=== PATIENT | male | born 1960 | race African-American/Black ===

== ENCOUNTER 2017-03-11 23:52 | Emergency (ER) | payer MEDICAID ==
[~2017-03-11] VITALS: Ht 175.3 cm; Wt 116.1 kg
[~2017-03-11 23:52] MED LIST: AMLO10TA57 PO; BICA50TA PO; CALC-587 PO; CLON0.1T97 PO; FURO40TA70 PO; HYDR-2164 PO; INSU100V8 SQ; LEUP45SY IM; OXYC40TA25 PO; POTA20TA69 PO; TRAM-261 PO; ZOLE4VIA IV; [UNRECOGNIZED DRUG - CODE] PO; [UNRECOGNIZED DRUG - CODE] PO
[2017-03-11 23:55] VITALS: TEMP 97.8; Ht 175.3 cm; Wt 116.1 kg
--- OUTSIDE RECORDS SUMMARY | 2017-03-11 23:56 | XMS REPORT ---
Author Author Dean Gannon Organization [employer] Address Unknown Phone Unavailable Care Team Providers Care Detective Sergeant Name Role Phone Dean Gannon CP Unavailable Allergies No Known Allergies Problems Problem Type Condition Code Onset Dates Condition Status Problem Degeneration of lumbar or lumbosacral intervertebral disc 722.52 Active Problem 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 Active Problem Other obesity E66.8 Active Problem Chronic pancreatitis 577.1 Active Problem Essential (primary) hypertension I10 Active Problem Giant cell arteritis 446.5 Active Problem Pain in right wrist M25.531 Active Problem Presbyopia H52.4 Active Problem Pain in left shoulder M25.512 Active Problem Chronic kidney disease, stage 1 N18.1 Active Problem 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 Problem Spasm of muscle 728.85 Active Problem Malignant neoplasm of prostate 185 Active Problem Essential hypertension, benign 401.1 Active Problem Localized osteoarthrosis not specified whether primary or secondary, lower leg 715.36 Active Problem Age-related nuclear cataract, bilateral H25.13 Active Problem Regular astigmatism, bilateral H52.223 Active Problem Pain in right knee M25.561 Active Problem Type 2 diabetes mellitus with hyperglycemia E11.65 Active Problem Lipoma of other skin and subcutaneous tissue 214.1 Active Problem Pain in joint, shoulder region 719.41 Active Problem Pain in soft tissues of limb 729.5 Active Problem Allergic rhinitis, cause unspecified 477.9 Active Problem Localized superficial swelling, mass, or lump 782.2 Active Problem 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
--- OUTSIDE RECORDS SUMMARY | 2017-03-11 23:56 | XMS REPORT ---
Author Author Katrin Olvera [employer] Address Unknown Phone Unavailable Care Team Providers Care Crane Hooker Name Role Phone Katrin Olvera Unavailable Allergies, Adverse Reactions, Alerts Substance Reaction Event Type Reglan Info Not Available Drug Allergy Prochlorperazine Info Not Available Drug Allergy Morphine Sulfate nausea Drug Allergy Inapsine Info Not Available Drug Allergy seasonal Info Not Available Non Drug Allergy Problems Problem Type Condition ICD-9 Code Onset Dates Condition Status Assessment Lipoma of other skin and subcutaneous tissue 214.1 Active Assessment Lumbago 724.2 Active Assessment Obesity, unspecified 278.00 Active Assessment Malignant neoplasm of prostate 185 Active Assessment Essential hypertension, benign 401.1 Active Assessment Hypertrophy (benign) of prostate without urinary obstruction and other lower urinary tract symptoms [LUTS] 600.00 Active Assessment Chronic pancreatitis 577.1 Active Assessment Routine general medical examination at health care facility V70.0 Active Problem Obesity, unspecified 278.00 Active Problem Malignant neoplasm of prostate 185 Active Problem Degeneration of lumbar or lumbosacral intervertebral disc 722.52 Active Problem Encounter for removal of sutures V58.32 Active Problem Essential hypertension, benign 401.1 Active Problem Acute sinusitis, unspecified 461.9 Active Problem Acute bronchitis 466.0 Active Problem Spasm of muscle 728.85 Active Problem Lipoma of other skin and subcutaneous tissue 214.1 Active Problem Lumbago 724.2 Active Problem Hypertrophy (benign) of prostate without urinary obstruction and other lower urinary tract symptoms [LUTS] 600.00 Oct 13, 2010 Active Problem 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 Active Problem Routine general medical examination at health care facility V70.0 Active Problem Acute maxillary sinusitis 461.0 Active Problem Pain in joint, lower leg 719.46 Active Problem Pain in soft tissues of limb 729.5 Active Problem Allergic rhinitis, cause unspecified 477.9 Active Problem Swelling, mass, or lump in head and neck 784.2 Active Problem Chronic pancreatitis 577.1 Active Assessment Acute sinusitis, unspecified 461.9 Active Problem Sprain and strain of other specified sites of knee and leg 844.8 Active Problem Nonspecific abnormal electrocardiogram (ECG) (EKG) 794.31 Active Problem Unspecified pre-operative examination V72.84 Active Problem Acute frontal sinusitis 461.1 Active Problem Localized osteoarthrosis not specified whether primary or secondary, lower leg 715.36 Active Problem Headache 784.0 Active Problem Giant cell arteritis 446.5 Active Medications Medication Code System Code Instructions Start Date End Date Status Dosage ProAir HFA [facility] [address]-47 108 (90 Base) MCG/ACT Inhalation every 4 hrs PRN wheezing January 05, 2013 Active 2 puffs as needed Potassium Chloride [facility] [address]-39 20 MEQ Orally Three times a day Active 1 capsule Bactrim DS [facility] [address]-29 800-160 MG Orally Twice a day Sep 21, 2014 Oct 01, 2014 Active 1 tablet Mucinex [facility] [address]-43 600 MG Orally every 12 hrs, take with plenty of water January 29, 2014 Active 1 tablet as needed Flonase [facility] [address]-91 50 MCG/ACT Nasally bid Sep 07, 2014 Active 1 spray in each nostril Waucoma [facility] [address]-55 10-325 MG Orally every 6 hrs Active 1 tablet as needed Zometa [facility] [address]-46 4 MG/5ML Intravenous Active as directed Amlodipine Besylate [facility] [address]-04 10 MG Orally Once a day Active take one tablet by mouth daily Hydrochlorothiazide [facility] [address]-30 25 MG Orally Once a day January 05, 2013 Active 1 tablet Casodex [facility] [address]-18 50 MG Orally Once a day Active 1 tablet Lupron Depot [facility] [address]-16 45 MG Intramuscular Active as directed Soma [facility] [address]-82 350 MG Orally twice a day January 29, 2014 Dec 08, 2014 Active 1 tablet as needed Cetirizine HCl [facility] [address]-89 10 MG Orally qhs Sep 07, 2014 March 06, 2015 Active 1 tablet Calcium [facility] [address]-31 400-133.3 Orally Active 1 PO daily Procedures Procedure Coding System Code Date ASSAY OF LIPOPROTEIN CPT-4 03004 Sep 21, 2014 ASSAY, BLD/SERUM CHOLESTEROL CPT-4 07810 Sep 21, 2014 GLYCATED HEMOGLOBIN TEST CPT-4 79990 Sep 21, 2014 Office Visit, Est Pt., Level 5 CPT-4 60968 Sep 21, 2014 ASSAY OF TRIGLYCERIDES CPT-4 53604 Sep 21, 2014 Vital Signs Date/Time: Sep 21, 2014 BMI 36.53 Index Weight 254.6 lbs Height 70 in Blood Pressure Diastolic 74 mm Hg Blood Pressure Systolic 115 mm Hg Temperature 97.6 F Cardiac Monitoring Heart Rate 72 /min Results No Known Results Summary Purpose eClinicalWorks Submission
--- OUTSIDE RECORDS SUMMARY | 2017-03-11 23:56 | XMS REPORT | Continuity of Care Document ---
Author Author [facility] Organization [facility] Address Unknown Phone Unavailable Care Team Providers Care Negative Notcher Name Role Phone Zaki Bojorquez Primary Care Physician [phone] Source Comments Some departments are not documenting in the electronic medical record. If you do not see the information that you expected, contact Release of Information in the Health Information Management department at [phone] for further assistance in locating additional records.[facility] Active Allergies and Adverse Reactions Allergen Noted Date Severity Reactions Comments Compazine 05/26/2011 UNKNOWN Morphine 05/26/2011 UNKNOWN Reglan 05/26/2011 UNKNOWN Current Medications Prescription Sig. Disp. Refills Start End Date Status Date AMLODIPINE BESYLATE Take by mouth. Active (NORVASC PO) bicalutamide (CASODEX) 50 Take 1 Tab by mouth 30 Tab 0 06/04/20 Active mg PO Tab daily. 11 oxyCODONE SR (OXYCONTIN) Take 1 Tab by mouth every 9 Tab 0 06/05/20 Active 40 mg PO tablet 8 hours. 11 ALPRAZolam (XANAX) 0.25 Take 1 Tab by mouth three 30 Tab 0 20 Active mg PO tablet times daily as needed for 11 Anxiety. bicalutamide (CASODEX) 50 Take 1 Tab by mouth 30 Tab 0 20 Active mg PO Tab daily. 11 gabapentin (NEURONTIN) Take 2 Caps by mouth 200 Cap 0 06/05/20 Active 100 mg PO capsule twice daily. 11 levETIRAcetam (KEPPRA) Take 1 Tab by mouth twice 12 Tab 0 06/05/20 Active 500 mg PO tablet daily. 11 lisinopril (PRINIVIL; Take 1 Tab by mouth 30 Tab 0 08/19/20 Active ZESTRIL) 20 mg PO tablet daily. 11 senna/docusate Take 1 Tab by mouth twice 06/05/20 Active (SENOKOT-S) 8.6/50 mg PO daily. Take while taking 11 tablet pain medication hydrochlorothiazide Take 1 Tab by mouth 30 Tab 0 06/05/20 Active (HYDRODIURIL) 25 mg PO daily. 11 tablet HYDROmorphone (DILAUDID) Take 2 Tabs by mouth 24 Tab 0 06/05/20 Active 8 mg PO tablet every 6 hours as needed. 11 Active Problems Problem Noted Date Headache behind the eyes 06/02/2011 Brain mass 06/02/2011 S/P craniotomy 06/02/2011 HTN (hypertension) 06/02/2011 Unintentional weight loss 06/02/2011 Chronic back pain 06/02/2011 Family history of cancer 06/02/2011 Resolved Problems Problem Noted Date Resolved Date Prostate cancer (HCC) 06/02/2011 06/02/2011 Social History Tobacco Use Types Packs/Day Years Used Date Never Smoker Alcohol Use Drinks/Week oz/Week Comments No Last Filed Vital Signs Vital Sign Reading Time Taken Blood Pressure 148/86 06/05/2011 11:00 AM CDT Pulse 78 06/05/2011 11:00 AM CDT Temperature 36.4 C (97.6 F) 06/05/2011 11:00 AM CDT Respiratory Rate - - Height - - Weight 104.1 kg (229 lb 8 oz) 06/01/2011 9:45 PM CDT Body Mass Index - - Oxygen Saturation 98% 06/05/2011 11:00 AM CDT Plan of Care Health Maintenance Due Date Last Done Comments Hepatitis C Screening 1959 Physical (Comprehensive) 1966 Exam Pertussis Vaccine 1970 Tetanus Vaccine 1976 Colorectal Cancer 2009 Screening Influenza Vaccine 06/18/2017 Results from Last 3 Months Not on file
--- OUTSIDE RECORDS SUMMARY | 2017-03-11 23:56 | XMS REPORT ---
Author Author Dean Gannon Organization [employer] Address Unknown Phone Unavailable Care Team Providers Care Canceling Machine Operator Name Role Phone Dean Gannon CP Unavailable [...] of other specified sites 176.8 Active Medications Medication Code System Code Instructions Start Date End Date Status Dosage Levemir FlexTouch [facility] [address]-20 100 UNIT/ML Subcutaneous QHS March 02, 2016 20 units Results No Known Results Summary Purpose eClinicalWorks Submission
--- OUTSIDE RECORDS SUMMARY | 2017-03-11 23:56 | XMS REPORT | Referral Summary ---
Author Organization Unknown Address Unknown Phone Unavailable Care Team Providers Care Parking Lot Laborer Name Role Phone [facility] Primary Care Physician Unavailable Encounter [facility] [id number] Date(s): 01/29/15 - 01/29/15 [facility] [address] [place] [address] Discharge Diagnosis: Pain, dental Discharge Diagnosis: Fractured tooth Discharge Diagnosis: Acute sinusitis Discharge Disposition: Left Against Medical Advice Attending Physician: Segundo Villalobos MD Admitting Physician: Segundo Villalobos MD Vital Signs Most recent to 1 oldest [Reference Range]: Temperature Oral 36.6 degC [35.8-37.3 degC] (01/29/15 5:53 PM) Peripheral Pulse 89 bpm Rate [60-100 bpm] (01/29/15 5:53 PM) Respiratory Rate 16 br/min [14-20 br/min] (01/29/15 5:53 PM) Blood Pressure 167/95 mmHg [90-140/60-90 mmHg] *HI* (01/29/15 5:53 PM) Most recent to 1 oldest [Reference Range]: SpO2 97 % (01/29/15 5:53 PM) Problem List Condition Effective Dates Status Health Status Informant Cancer(Confirmed) Active patient Hypertension(Confirm Active patient ed) Fibrosarcoma(Confirm Active patient ed) Prostate Active patient cancer(Confirmed) Allergies, Adverse Reactions, Alerts Substance Reaction Severity Status Compazine Jittery Mild Active Flexeril Hives Active Inapsine Jittery Mild Active naproxen Adverse Reaction Active Reglan Jittery Mild Active Medications calcium-magnesium 119 mg-71.5 mg oral delayed release tablet tabs, Oral, Daily, 0 Refill(s) Start Date: 05/16/14 Status: Ordered captopril-hydrochlorothiazide 25 mg-15 mg oral tablet tabs, Oral, Daily, 0 Refill(s) Start Date: 05/16/14 Status: Ordered Lasix Daily, 0 Refill(s) Start Date: 09/06/14 Status: Ordered Lupron Depot-Ped 11.25 mg/3 months intramuscular kit IntraMuscular, q3mo, 0 Refill(s) Start Date: 05/16/14 Status: Ordered Norvasc Oral, Daily, 0 Refill(s) Start Date: 09/06/14 Status: Ordered oxyCODONE-acetaminophen 5 mg-325 mg oral tablet 1 tabs, Oral, q4hr, as needed for pain, # 20 tabs, 0 Refill(s) Start Date: 11/28/14 Status: Ordered potassium chloride 20 mEq oral tablet, extended release tabs, Oral, BID, 0 Refill(s) Start Date: 10/24/14 Status: Ordered Zometa mg, IV, 0 Refill(s) Start Date: 10/08/14 Status: Ordered Results No data available for this section Immunizations Vaccine Date Refusal Reason tetanus-diphth toxoids (Td) adult/adol 07/02/04 Procedures Procedure Date Related Diagnosis Body Site Craniotomy Insertion of Port-a-cath Shoulder repair Total knee replacement1 1right total knee replacement Social History Social History Type Response Smoking Status Never smoker Assessment and Plan No data available for this section
--- OUTSIDE RECORDS SUMMARY | 2017-03-11 23:56 | XMS REPORT | Referral Summary ---
Author Author [facility] Organization [facility] Address Unknown Phone Unavailable Care Team Providers Care Otolaryngology Physician Name Role Phone [facility] Primary Care Physician Unavailable Encounter [facility] [id number] Date(s): 12/16/15 - 12/16/15 [facility] [address] [place], [place] [address] Discharge Diagnosis: Mass of right wrist Discharge Disposition: 01-Home or Self Care Attending Physician: Inder Rivas MD Admitting Physician: Inder Rivas MD Referring Physician: [facility] Vital Signs No data available for this section Problem List Condition Effective Dates Status Health Status Informant Cancer(Confirmed) Active patient Hypertension(Confirm Active patient ed) Fibrosarcoma(Confirm Active patient ed) Prostate Active patient cancer(Confirmed) Mass of right Active wrist(Confirmed) Allergies, Adverse Reactions, Alerts Substance Reaction Severity Status Compazine Jittery Mild Active Flexeril Hives Active Inapsine Jittery Mild Active naproxen Adverse Reaction Active Reglan Jittery Mild Active Medications calcium carbonate 0 Refill(s) Start Date: 11/29/14 Status: Ordered calcium-magnesium 119 mg-71.5 mg oral delayed release tablet tabs, Oral, Daily, 0 Refill(s) Start Date: 05/16/14 Status: Ordered captopril-hydrochlorothiazide 25 mg-15 mg oral tablet tabs, Oral, Daily, 0 Refill(s) Start Date: 05/16/14 Status: Ordered Casodex mg, Oral, q24hr, 0 Refill(s) Start Date: 11/29/14 Status: Ordered Lasix Daily, 0 Refill(s) Start Date: 11/29/14 Status: Ordered Lasix Daily, 0 Refill(s) Start Date: 09/06/14 Status: Ordered Lupron Depot 30 mg/4 months intramuscular injection, extended release IntraMuscular, 0 Refill(s) Start Date: 11/29/14 Status: Ordered Lupron Depot-Ped 11.25 mg/3 months intramuscular kit IntraMuscular, q3mo, 0 Refill(s) Start Date: 05/16/14 Status: Ordered [place] 10 mg-325 mg oral tablet tabs, Oral, q6hr, 0 Refill(s) Start Date: 11/29/14 Status: Ordered Norvasc Oral, Daily, 0 Refill(s) Start Date: 09/06/14 Status: Ordered potassium bitartrate 0 Refill(s) Start Date: 11/29/14 Status: Ordered potassium chloride 20 mEq oral tablet, extended release tabs, Oral, BID, 0 Refill(s) Start Date: 10/24/14 Status: Ordered Zometa mg, IV, 0 Refill(s) Start Date: 10/08/14 Status: Ordered Zometa mg, IV, 0 Refill(s) Start Date: 11/29/14 Status: Ordered Results No data available for this section Immunizations Vaccine Date Refusal Reason tetanus-diphth toxoids (Td) adult/adol 07/02/04 Procedures Procedure Date Related Diagnosis Body Site Craniotomy Insertion of Port-a-cath Shoulder repair Total knee replacement1 1right total knee replacement Social History Social History Type Response Smoking Status Never smoker Assessment and Plan Extracted from: Title: Office Visit Note Author: Inder Rivas MD Date: 12/16/15 Assessment/Plan Patient has some fullness in thedorsum of the wrist over the second dorsal compartment. This may be synovitis. Also possible it simply dorsal ganglion cyst. However doesn't feel like a ganglion. 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 Will do this with contrast. I explained the patient that we' ll get this scheduled and have him return to see me afterwards.
--- OUTSIDE RECORDS SUMMARY | 2017-03-11 23:56 | XMS REPORT ---
Author Author Christi Fournier Organization [employer] Address Unknown Phone Unavailable Care Team Providers Care Boat Camp Operator Name Role Phone Christi Fournier CP Unavailable Allergies, Adverse Reactions, Alerts Substance Reaction Event Type Reglan Info Not Available Drug Allergy Prochlorperazine Info Not Available Drug Allergy Morphine Sulfate nausea Drug Allergy Inapsine Info Not Available Drug Allergy seasonal Info Not Available Non Drug Allergy Problems Problem Type Condition ICD-9 Code Onset Dates Condition Status Problem Giant cell arteritis 446.5 Active Problem Localized osteoarthrosis not specified whether primary or secondary, lower leg 715.36 Active Problem Acute frontal sinusitis 461.1 Active Problem Pain in soft tissues of limb 729.5 Active Problem Obesity, unspecified 278.00 Active Problem Acute bronchitis 466.0 Active Assessment Acute sinusitis, unspecified 461.9 Active Problem Pain in joint, lower leg 719.46 Active Problem Encounter for removal of sutures V58.32 Active Problem Malignant neoplasm of prostate 185 Active Problem Spasm of muscle 728.85 Active Problem Acute sinusitis, unspecified 461.9 Active Problem Acute maxillary sinusitis 461.0 Active Problem 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 Active Problem Degeneration of lumbar or lumbosacral intervertebral disc 722.52 Active Problem Essential hypertension, benign 401.1 Active Problem Unspecified pre-operative examination V72.84 Active Problem Chronic pancreatitis 577.1 Active Problem Hypertrophy (benign) of prostate without urinary obstruction and other lower urinary tract symptoms [LUTS] 600.00 Oct 13, 2010 Active Problem Sprain and strain of other specified sites of knee and leg 844.8 Active Problem Nonspecific abnormal electrocardiogram (ECG) (EKG) 794.31 Active Problem Headache 784.0 Active Medications Medication Code System Code Instructions Start Date End Date Status Dosage Amoxicillin [facility] [address]-00 500 MG Orally every 12 hrs Jul 09, 2014 Jul 19, 2014 Active 2 tablets ProAir HFA [facility] [address]-95 108 (90 Base) MCG/ACT Inhalation every 4 hrs PRN wheezing January 05, 2013 Active 2 puffs as needed Calcium [facility] [address]-59 400-133.3 Orally Active 1 PO daily Hydrochlorothiazide [facility] [address]-47 25 MG Orally Once a day December Active 1 tablet Joes [facility] [address]-66 10-325 MG Orally every 6 hrs Active 1 tablet as needed Potassium Chloride [facility] [address]-53 20 MEQ Orally Three times a day Active 1 capsule Soma [facility] [address]-72 350 MG Orally twice a day January 29, 2014 Dec 08, 2014 Active 1 tablet as needed Lupron Depot [facility] [address]-84 45 MG Intramuscular Active as directed Casodex [facility] [address]-27 50 MG Orally Once a day Active 1 tablet Amlodipine Besylate [facility] [address]-94 10 MG Orally Once a day Active take one tablet by mouth daily Zometa [facility] [address]-87 4 MG/5ML Intravenous Active as directed Mucinex [facility] [address]-56 600 MG Orally every 12 hrs, take with plenty of water January 29, 2014 Active 1 tablet as needed Procedures Procedure Coding System Code Date Office Visit, Est Pt., Level 3 CPT-4 55716 Jul 09, 2014 Vital Signs Date/Time: Jul 09, 2014 Weight 255 lbs Height 70 in Blood Pressure Diastolic 91 mm Hg Blood Pressure Systolic 142 mm Hg Temperature 97.8 F Cardiac Monitoring Heart Rate 71 /min Results No Known Results Summary Purpose eClinicalWorks Submission
--- OUTSIDE RECORDS SUMMARY | 2017-03-11 23:56 | XMS REPORT ---
Author Author Katrin Olvera [facility] eClinical[employer] Address Unknown Phone Unavailable Care Team Providers Care Geospatial Analyst Name Role Phone Katrin Olvera Unavailable Allergies No Known Allergies Problems Problem Type Condition Code Onset Dates Condition Status Problem Nonspecific abnormal electrocardiogram (ECG) (EKG) 794.31 Active Problem Hypertrophy (benign) of prostate without urinary obstruction and other lower urinary tract symptoms [LUTS] 600.00 Oct 13, 2010 Active Problem Chronic pancreatitis 577.1 Active Problem Unspecified pre-operative examination V72.84 Active Problem Sprain and strain of other specified sites of knee and leg 844.8 Active Problem Headache 784.0 Active Problem Giant cell arteritis 446.5 Active Problem Acute frontal sinusitis 461.1 Active Problem Localized osteoarthrosis not specified whether primary or secondary, lower leg 715.36 Active Problem hypokalemia 276.8 Active Problem Malignant neoplasm of prostate 185 Active Problem Pain in joint, shoulder region 719.41 Active Problem Encounter for removal of sutures V58.32 Active Problem Other acute pain 338.19 Active Problem Localized superficial swelling, mass, or lump 782.2 Active Problem 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 Problem Type 2 diabetes mellitus with hyperglycemia E11.65 Active Problem Impaired fasting glucose R73.01 Active Problem Acute bronchitis 466.0 Active Problem Spasm of muscle 728.85 Active Problem 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 Active Problem Acute sinusitis, unspecified 461.9 Active Problem Polydipsia R63.1 Active Problem Localized swelling, mass and lump, trunk R22.2 Active Problem Cellulitis and abscess of mouth K12.2 Active Problem Other polyuria R35.8 Active Problem Acute maxillary sinusitis 461.0 Active Problem Swelling, mass, or lump in head and neck 784.2 Active Problem 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 Active Problem Allergic rhinitis, cause unspecified 477.9 Active Problem Degeneration of lumbar or lumbosacral intervertebral disc 722.52 Active Problem Pain in soft tissues of limb 729.5 Active Problem Essential hypertension, benign 401.1 Active Problem Pain in joint, lower leg 719.46 Active Problem Routine general medical examination at health care facility V70.0 Active Problem Obesity, unspecified 278.00 Active Problem Abnormal weight gain 783.1 Active Problem Lumbago 724.2 Active Problem Lipoma of other skin and subcutaneous tissue 214.1 Active Medications Medication Code System Code Instructions Start Date End Date Status Dosage Glucose Blood NDC 0 1 In Vitro twice daily Aug 08, 2015 as directed Results No Known Results Summary Purpose eClinicalWorks Submission
--- OUTSIDE RECORDS SUMMARY | 2017-03-11 23:57 | XMS REPORT ---
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 Problem Degeneration of lumbar or lumbosacral intervertebral disc 722.52 Active Problem Obesity, unspecified 278.00 Active Problem Essential hypertension, benign 401.1 Active Problem Acute maxillary sinusitis 461.0 Active Problem 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 Active Problem Hypertrophy (benign) of prostate without urinary obstruction and other lower urinary tract symptoms [LUTS] 600.00 Oct 13, 2010 Active Problem Nonspecific abnormal electrocardiogram (ECG) (EKG) 794.31 Active Problem Pain in joint, lower leg 719.46 Active Problem Unspecified pre-operative examination V72.84 Active Problem Swelling, mass, or lump in head and neck 784.2 Active Problem Chronic pancreatitis 577.1 Active Problem Allergic rhinitis, cause unspecified 477.9 Active Problem Lipoma of other skin and subcutaneous tissue 214.1 Active Problem Lumbago 724.2 Active Problem 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 Problem Other acute pain 338.19 Active Problem Giant cell arteritis 446.5 Active Problem Headache 784.0 Active Problem Localized superficial swelling, mass, or lump 782.2 Active Problem Sprain and strain of other specified sites of knee and leg 844.8 Active Problem Abnormal weight gain 783.1 Active Problem Routine general medical examination at health care facility V70.0 Active Problem Pain in joint, shoulder region 719.41 Active Problem hypokalemia 276.8 Active Problem Malignant neoplasm of prostate 185 Active Assessment Malignant neoplasm of prostate 185 Active Problem Encounter for removal of sutures V58.32 Active Problem Acute frontal sinusitis 461.1 Active Problem Localized osteoarthrosis not specified whether primary or secondary, lower leg 715.36 Active Problem Acute bronchitis 466.0 Active Problem Pain in soft tissues of limb 729.5 Active Problem Acute sinusitis, unspecified 461.9 Active Problem Spasm of muscle 728.85 Active Medications Medication Code System Code Instructions Start Date End Date Status Dosage Calcium [facility] [address]-91 400-133.3 Orally 1 PO daily Amlodipine Besylate [facility] [address]-31 10 MG Orally Once a day take one tablet by mouth daily Clonidine HCl [facility] [address]-76 0.1 MG Orally Once a day May 01, 2015 1 tablet Lancing [facility] [address]-85 10-325 MG Orally every 6 hrs 1 tablet as needed Gabapentin [facility] [address]-16 300 MG Orally BID May 01, 2015 1 capsule ProAir HFA [facility] [address]-23 108 (90 Base) MCG/ACT Inhalation every 4 hrs PRN wheezing January 05, 2013 2 puffs as needed Mucinex [facility] [address]-20 600 MG Orally every 12 hrs, take with plenty of water January 29, 2014 1 tablet as needed Klor-Con M20 [facility] [address]-16 20 MEQ Orally Twice a day May 02, 2015 Jul 01, 2015 1 tablet Casodex [facility] [address]-96 50 MG Orally Once a day 1 tablet Lupron Depot [facility] [address]-09 45 MG Intramuscular as directed Potassium Chloride [facility] [address]-50 20 MEQ Orally Three times a day 1 capsule Flonase [facility] [address]-06 50 MCG/ACT Nasally bid Sep 07, 2014 1 spray in each nostril Hydrochlorothiazide [facility] [address]-45 25 MG Orally Once a day January 05, 2013 1 tablet Amoxicillin [facility] [address]-66 500 MG Orally every 8hrs May 07, 2015 May 17, 2015 2 tablets Zometa [facility] [address]-26 4 MG/5ML Intravenous as directed Procedures Procedure Coding System Code Date Office Visit, Est Pt., Level 3 CPT-4 70605 May 16, 2015 Vital Signs Date/Time: May 16, 2015 BMI 39.94 Index Weight 278 lb 6 oz lbs Height 70 in Blood Pressure Diastolic 88 mm Hg Blood Pressure Systolic 140 mm Hg Temperature 97.8 F Cardiac Monitoring Heart Rate 97 /min Results No Known Results Summary Purpose eClinicalWorks Submission
--- OUTSIDE RECORDS SUMMARY | 2017-03-11 23:57 | XMS REPORT ---
Author Bret Dennison Organization eClinicalWorks Address Unknown Phone Unavailable Care Team Providers Care Printing Agent Name Role Phone Bret Olmedo CP Unavailable Allergies, Adverse Reactions, Alerts Substance Reaction Event Type Reglan Info Not Available Drug Allergy Prochlorperazine Info Not Available Drug Allergy Morphine Sulfate nausea Drug Allergy Inapsine Info Not Available Drug Allergy seasonal Info Not Available Non Drug Allergy Problems Problem Type Condition Code Onset Dates Condition Status Assessment Chronic pain syndrome G89.4 Active Assessment Wedge compression fracture of unspecified lumbar vertebra, subsequent encounter for fracture with nonunion S32.000K Active Assessment Degeneration of lumbar or lumbosacral intervertebral disc 722.52 Active Problem Degeneration of lumbar or lumbosacral intervertebral disc 722.52 Active Problem 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 Active Problem Chronic pancreatitis 577.1 Active Problem Giant cell arteritis 446.5 Active Problem Pain in right wrist M25.531 Active Problem Localized osteoarthrosis not specified whether primary or secondary, lower leg 715.36 Active Problem Pain in left shoulder M25.512 Active Problem Malignant neoplasm of prostate 185 Active Problem Presbyopia H52.4 Active Problem Age-related nuclear cataract, bilateral H25.13 Active Problem Regular astigmatism, bilateral H52.223 Active Problem Chronic pain syndrome G89.4 Active Problem Essential hypertension, benign 401.1 Active Problem Allergic rhinitis, cause unspecified 477.9 Active Problem Pain in soft tissues of limb 729.5 Active Problem Wedge compression fracture of unspecified lumbar vertebra, subsequent encounter for fracture with nonunion S32.000K Active Problem Spasm of muscle 728.85 Active Problem Pain in right knee M25.561 Active Problem Type 2 diabetes mellitus with hyperglycemia E11.65 Active Problem Chronic kidney disease, stage 1 N18.1 Active Problem 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 Problem Other acute pain 338.19 Active Problem 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 Problem Lipoma of other skin and subcutaneous tissue 214.1 Active Problem Pain in joint, shoulder region 719.41 Active Problem Other obesity E66.8 Active Problem Essential (primary) hypertension I10 Active Problem Localized superficial swelling, mass, or lump 782.2 Active Problem 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 Active Medications Medication Code System Code Instructions Start Date End Date Status Dosage True Metrix Meter [facility] [address] w/Device in vitro check BID Jun 18, 2016 as directed Ultra-Thin II Mini Pen Needle [facility] [address]45 31G X 5 MM SQ QHS Aug 05, 2015 as directed Calcium [facility] [address]-04 400-133.3 Orally 1 PO daily Casodex [facility] [address]-19 50 MG Orally Once a day 1 tablet Lupron Depot [facility] [address]-66 45 MG Intramuscular as directed Mucinex [facility] [address]-15 600 MG Orally every 12 hrs, take with plenty of water January 29, 2014 1 tablet as needed Levemir FlexTouch [facility] [address]-05 100 UNIT/ML Subcutaneous QHS March 02, 2016 20 units Hydrochlorothiazide [facility] [address]-25 50 MG Orally Once a day 1 tablet True Metrix Blood Glucose Test [facility] [address] 1 In Vitro twice a day Jun 16, 2016 as directed Gabapentin [facility] [address]-14 300 MG Orally BID May 01, 2015 1 capsule Amlodipine Besylate [facility] [address]-80 10 MG Orally Once a day take one tablet by mouth daily Xgeva [facility] [address]-43 120 MG/1.7ML Subcutaneous every three months 1.7 ml Clonidine HCl [facility] 92024695155 0.1 MG Orally Once a day 1 tablet Metformin HCl [facility] [address]-62 500 MG Orally Twice a day Aug 01, 2015 1 tab Phenergan [facility] [address]-51 12.5 MG Orally every 6 hrs Jul 27, 2016 1 tablet as needed Potassium Chloride [facility] [address]-29 20 MEQ Orally Three times a day JulDec 02, 2016 1 capsule Lisinopril [facility] [address]-69 40 MG Orally Once a day December 30, 2015 1 tablet ProAir HFA [facility] [address]-68 108 (90 Base) MCG/ACT Inhalation every 4 hrs PRN wheezing January 05, 2013 2 puffs as needed Soma [facility] [address]-17 350 MG Orally Four times a day Aug 11, 2016Sep 1 tablet Lancets Misc. [facility] 0 1 test twice daily Aug 05, 2015 as directed [place] [facility] [address]-92 10-325 MG Orally every 6 hrs 1 tablet as needed Glucose Blood [facility] [address]-47 1 In Vitro test BID April 23, 2016 as directed Flonase [facility] [address]-89 50 MCG/ACT Nasally bid Sep 07, 2014 1 spray in each nostril OxyContin [facility] [address]-43 20 MG Orally every 12 hrs 1 tablet Procedures Procedure Coding System Code Date Office Visit, Est Pt., Level 3 CPT-4 95402 Aug 11, 2016 Vital Signs Date/Time: Aug 11, 2016 BMI 38.04 Index Weight 265 lb 2 oz lbs Height 70 in Blood Pressure Diastolic 85 mm Hg Blood Pressure Systolic 131 mm Hg Temperature 97.5 F Cardiac Monitoring Heart Rate 82 /min Results No Known Results Summary Purpose eClinicalWorks Submission
--- OUTSIDE RECORDS SUMMARY | 2017-03-11 23:57 | XMS REPORT ---
Author Author Christi Fournier Organization eClinicalWorks Address Unknown Phone Unavailable Care Team Providers Care Golf Course Superintendent Name Role Phone Christi Fournier CP Unavailable Allergies No Known Allergies Problems Problem Type Condition ICD-9 Code Onset Dates Condition Status Problem Sprain and strain of other specified sites of knee and leg 844.8 Active Problem Giant cell arteritis 446.5 Active Problem Headache 784.0 Active Problem Spasm of muscle 728.85 Active Problem Acute sinusitis, unspecified 461.9 Active Problem Acute bronchitis 466.0 Active Problem Localized osteoarthrosis not specified whether primary or secondary, lower leg 715.36 Active Problem Acute frontal sinusitis 461.1 Active Problem Encounter for removal of sutures V58.32 Active Problem Malignant neoplasm of prostate 185 Active Problem Degeneration of lumbar or lumbosacral intervertebral disc 722.52 Active Problem Essential hypertension, benign 401.1 Active Problem Obesity, unspecified 278.00 Active Problem Hypertrophy (benign) of prostate without urinary obstruction and other lower urinary tract symptoms [LUTS] 600.00 Oct 13, 2010 Active Problem Nonspecific abnormal electrocardiogram (ECG) (EKG) 794.31 Active Problem Acute maxillary sinusitis 461.0 Active Problem Unspecified pre-operative examination V72.84 Active Problem 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
--- OUTSIDE RECORDS SUMMARY | 2017-03-11 23:57 | XMS REPORT | Referral Summary ---
Author Organization Unknown Address Unknown Phone Unavailable Care Team Providers Care Manager Performance Name Role Phone [facility] Primary Care Physician Unavailable Encounter VC Date(s): 11/01/14 - 11/01/14 [facility], JARON, Founderberto Lambert, Plastic Surgery [address] [place], [place] [address] Discharge Disposition: Home or Self Care Attending Physician: Izaiah Han MD Admitting Physician: Izaiah Han MD Vital Signs No data available for this section Problem List Condition Effective Dates Status Health Status Informant Cancer(Confirmed) Active patient Hypertension(Confirm Active patient ed) Fibrosarcoma(Confirm Active patient ed) Prostate Active patient cancer(Confirmed) Allergies, Adverse Reactions, Alerts Substance Reaction Severity Status Compazine Jittery Mild Active Inapsine Jittery Mild Active naproxen Adverse Reaction Active Reglan Jittery Mild Active Medications calcium-magnesium 119 mg-71.5 mg oral delayed release tablet tabs, Oral, Daily, 0 Refill(s) Start Date: 05/16/14 Status: Ordered captopril-hydrochlorothiazide 25 mg-15 mg oral tablet tabs, Oral, Daily, 0 Refill(s) Start Date: 05/16/14 Status: Ordered HYDROcodone Oral, q12hr, 0 Refill(s) Start Date: 10/24/14 Status: Ordered Lasix Daily, 0 Refill(s) Start Date: 09/06/14 Status: Ordered Lupron Depot-Ped 11.25 mg/3 months intramuscular kit IntraMuscular, q3mo, 0 Refill(s) Start Date: 05/16/14 Status: Ordered Norvasc Oral, Daily, 0 Refill(s) Start Date: 09/06/14 Status: Ordered potassium chloride 20 mEq oral tablet, extended release tabs, Oral, BID, 0 Refill(s) Start Date: 1/7/15 Status: Ordered Zometa mg, IV, 0 Refill(s) [...]
--- OUTSIDE RECORDS SUMMARY | 2017-03-11 23:57 | XMS REPORT ---
Author Bret Dennison Organization eClinicalWorks Address Unknown Phone Unavailable Care Team Providers Care Sidewalk Repairer Name Role Phone Bret Olmedo CP Unavailable Allergies, Adverse Reactions, Alerts Substance Reaction Event Type Reglan Info Not Available Drug Allergy Prochlorperazine Info Not Available Drug Allergy Morphine Sulfate nausea Drug Allergy Inapsine Info Not Available Drug Allergy seasonal Info Not Available Non Drug Allergy Problems Problem Type Condition Code Onset Dates Condition Status Assessment Degeneration of lumbar or lumbosacral intervertebral [...] Instructions Start Date End Date Status Dosage Soma [facility] [address]-31 350 MG Orally Four times a day Aug 11, 2016Sep 1 tablet Gabapentin [facility] [address]-11 300 MG Orally BID May 01, 2015 1 capsule Phenergan [facility] [address]-06 12.5 MG Orally every 6 hrs Jul 27, 2016 1 tablet as needed Metformin HCl [facility] [address]-11 500 MG Orally Twice a day Aug 01, 2015 1 tab True Metrix Meter [facility] [address] w/Device in vitro check BID Jun 18, 2016 as directed Lancets [facility] 0 1 test twice daily Aug 05, 2015 as directed Mucinex [facility] [address]-82 600 MG Orally every 12 hrs, take with plenty of water January 29, 2014 1 tablet as needed Lisinopril [facility] [address]-40 40 MG Orally Once a day December 30, 2015 1 tablet Levemir FlexTouch [facility] [address]-42 100 UNIT/ML Subcutaneous QHS March 02, 2016 20 units Potassium Chloride [facility] [address]-57 20 MEQ Orally Three times a day JulDec 02, 2016 1 capsule Flonase [facility] [address]-31 50 MCG/ACT Nasally bid Sep 07, 2014 1 spray in each nostril True Metrix Blood Glucose Test [facility] [address] 1 In Vitro twice a day Jun 16, 2016 as directed Xgeva [facility] [address]-34 120 MG/1.7ML Subcutaneous every three months 1.7 ml [place] [facility] [address]-85 10-325 MG Orally every 6 hrs 1 tablet as needed Casodex [facility] [address]-38 50 MG Orally Once a day 1 tablet Calcium [facility] [address]-10 400-133.3 Orally 1 PO daily Clonidine HCl [facility] 00513648850 0.1 MG Orally Once a day 1 tablet Amlodipine Besylate [facility] [address]-79 10 MG Orally Once a day take one tablet by mouth daily Lupron Depot [facility] [address]-98 45 MG Intramuscular as directed Glucose Blood [facility] [address]-36 1 In Vitro test BID April 23, 2016 as directed Hydrochlorothiazide [facility] [address]-19 50 MG Orally Once a day 1 tablet Ultra-Thin II Mini Pen Needle [facility] [address] 31G X 5 MM SQ QHS Aug 05, 2015 as directed ProAir HFA [facility] [address]-89 108 (90 Base) MCG/ACT Inhalation every 4 hrs PRN wheezing January 05, 2013 2 puffs as needed Procedures Procedure Coding System Code Date Office Visit, Est Pt., Level 3 CPT-4 91128 Sep 02, 2016 Vital Signs Date/Time: Sep 02, 2016 BMI 37.02 Index Weight 258 lbs lbs Height 70 in Blood Pressure Diastolic 90 mm Hg Blood Pressure Systolic 138 mm Hg Temperature 97.6 F Cardiac Monitoring Heart Rate 78 /min Results No Known Results Summary Purpose eClinicalWorks Submission
--- OUTSIDE RECORDS SUMMARY | 2017-03-11 23:57 | XMS REPORT ---
Author Author Katrin Olvera eClinicalWorks Address Unknown Phone Unavailable Care Team Providers Care Superintendent Storage Area Name Role Phone Katrin Olvera Unavailable Allergies, Adverse Reactions, Alerts Substance Reaction Event Type Reglan Info Not Available Drug Allergy Prochlorperazine Info Not Available Drug Allergy Morphine Sulfate nausea Drug Allergy Inapsine Info Not Available Drug Allergy seasonal Info Not Available Non Drug Allergy Problems Problem Type Condition Code Onset Dates Condition Status Problem Obesity, unspecified 278.00 Active Assessment Localized swelling, mass and lump, trunk R22.2 Active Problem Essential hypertension, benign 401.1 Active Problem Degeneration of lumbar or lumbosacral intervertebral disc 722.52 Active Problem Acute maxillary sinusitis 461.0 Active [...] Allergic rhinitis, cause unspecified 477.9 Active Problem Sprain and strain of other specified sites of knee and leg 844.8 Active Problem Lumbago 724.2 Active Problem Routine general medical examination at health care facility V70.0 Active Problem Lipoma of other skin and subcutaneous tissue 214.1 Active Problem Localized superficial swelling, mass, or lump 782.2 Active Problem 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 Problem Acute frontal sinusitis 461.1 Active Problem Giant cell arteritis 446.5 Active Problem Localized swelling, mass and lump, trunk R22.2 Active Problem Headache 784.0 Active Problem hypokalemia 276.8 Active Problem Abnormal weight gain 783.1 Active Problem Other acute pain 338.19 Active Problem Pain in joint, shoulder region 719.41 Active Problem Encounter for removal of sutures V58.32 Active Problem Acute sinusitis, unspecified 461.9 Active Problem Localized osteoarthrosis not specified whether primary or secondary, lower leg 715.36 Active Problem Malignant neoplasm of prostate 185 Active Problem Pain in soft tissues of limb 729.5 Active Problem Pain in joint, lower leg 719.46 Active Problem Spasm of muscle 728.85 Active Problem Acute bronchitis 466.0 Active Medications Medication Code System Code Instructions Start Date End Date Status Dosage Zometa [facility] [address]-71 4 MG/5ML Intravenous as directed Calcium [facility] [address]-27 400-133.3 Orally 1 PO daily Gabapentin [facility] [address]-55 300 MG Orally BID May 01, 2015 1 capsule Casodex [facility] [address]-25 50 MG Orally Once a day 1 tablet Potassium Chloride [facility] [address]-83 20 MEQ Orally Three times a day 1 capsule Amlodipine Besylate [facility] [address]-23 10 MG Orally Once a day take one tablet by mouth daily Hydrochlorothiazide [facility] [address]-23 25 MG Orally Once a day January 05, 2013 1 tablet Clonidine HCl [facility] [address]-50 0.1 MG Orally Once a day May 01, 2015 1 tablet ProAir HFA [facility] [address]-03 108 (90 Base) MCG/ACT Inhalation every 4 hrs PRN wheezing January 05, 2013 2 puffs as needed Mucinex [facility] [address]-28 600 MG Orally every 12 hrs, take with plenty of water January 29, 2014 1 tablet as needed Lupron Depot [facility] [address]-83 45 MG Intramuscular as directed [place] [facility] [address]-75 10-325 MG Orally every 6 hrs 1 tablet as needed Flonase [facility] [address]-23 50 MCG/ACT Nasally bid Sep 07, 2014 1 spray in each nostril Procedures Procedure Coding System Code Date Office Visit, Est Pt., Level 3 CPT-4 08264 Jul 23, 2015 Vital Signs Date/Time: Jul 23, 2015 BMI 36.44 Index Weight 254 lb lbs Height 70 in Blood Pressure Diastolic 86 mm Hg Blood Pressure Systolic 126 mm Hg Temperature 97.0 F Cardiac Monitoring Heart Rate 73 /min Results No Known Results Summary Purpose eClinicalWorks Submission
--- OUTSIDE RECORDS SUMMARY | 2017-03-11 23:57 | XMS REPORT ---
Author Author Katrin Olvera [facility] eClinicalWorks Address Unknown Phone Unavailable Care Team Providers Care Physical Therapy Attendant Name Role Phone Katrin Olvera Unavailable Allergies No Known Allergies Problems Problem Type Condition ICD-9 Code Onset Dates Condition Status Problem Obesity, unspecified 278.00 Active Problem Malignant [...] Active Problem Chronic pancreatitis 577.1 Active Problem Sprain and strain of other specified sites of knee and leg 844.8 Active Problem Nonspecific abnormal electrocardiogram (ECG) (EKG) 794.31 Active Problem Unspecified pre-operative examination V72.84 Active Problem Acute frontal sinusitis 461.1 Active Problem Localized osteoarthrosis not specified whether primary or secondary, lower leg 715.36 Active Problem Headache 784.0 Active Problem Giant cell arteritis 446.5 Active Medications No Known Medications Results No Known Results Summary Purpose eClinicalWorks Submission
--- OUTSIDE RECORDS SUMMARY | 2017-03-11 23:57 | XMS REPORT ---
Author Bret Dennison Organization e[employer] Address Unknown Phone Unavailable Care Team Providers Care Battery Engineer Name Role Phone Bret Olmedo CP Unavailable Allergies No Known Allergies Problems [...] diabetes mellitus with hyperglycemia E09.65 Active Medications No Known Medications Results No Known Results Summary Purpose eClinicalWorks Submission
--- OUTSIDE RECORDS SUMMARY | 2017-03-11 23:57 | XMS REPORT ---
Author Maco Simpson Organization eClinical[employer] Address Unknown Phone Unavailable Care Team Providers Care Tire Balancer Name Role Phone Maco Mason CP Unavailable Allergies No Known Allergies Problems [...] Pain in left shoulder M25.512 Active Problem Regular astigmatism, bilateral H52.223 Active Problem Presbyopia H52.4 Active Problem Essential hypertension, benign 401.1 Active Problem Chronic kidney disease, stage 1 N18.1 Active Problem Pain in soft tissues of limb 729.5 Active Problem Spasm of muscle 728.85 Active Problem Chronic pain syndrome G89.4 Active Problem Malignant neoplasm of prostate 185 Active Problem Type 2 diabetes mellitus with hyperglycemia E11.65 Active Problem Age-related nuclear cataract, bilateral H25.13 Active Problem 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 Problem Pain in right knee M25.561 Active Problem Pain in joint, shoulder region 719.41 Active Problem Other acute pain 338.19 Active Problem Allergic rhinitis, cause unspecified 477.9 Active Problem Lipoma of other skin and subcutaneous tissue 214.1 Active Problem 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
--- OUTSIDE RECORDS SUMMARY | 2017-03-11 23:57 | XMS REPORT ---
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 Active 87250366864523152 Problem Degeneration of lumbar or lumbosacral intervertebral disc 722.52 Active 53674649 Problem Chronic pancreatitis 577.1 Active 921897652 Problem Giant cell arteritis 446.5 Active 543278244 Problem Localized osteoarthrosis not specified whether primary or secondary, lower leg 715.36 Active 10735576 Problem Malignant neoplasm of prostate 185 Active 869408192 Problem Spasm of muscle 728.85 Active 81891028 Problem Regular astigmatism, bilateral H52.223 Active 20868083 Problem Pain in soft tissues of limb 729.5 Active 73026311 Problem Age-related nuclear cataract, bilateral H25.13 Active 236590870 Problem Allergic rhinitis, cause unspecified 477.9 Active 77339988 Problem Type 2 diabetes mellitus with hyperglycemia E11.65 Active 501025692008875 Problem 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 537800928 Problem Pain in right knee M25.561 Active 549781640885712 Problem Localized adiposity E65 Active 371338622 Problem Essential (primary) hypertension I10 Active 15255749 Problem Other acute pain 338.19 Active 419726420 Problem Pain in joint, shoulder region 719.41 Active 035803924 Problem Lipoma of other skin and subcutaneous tissue 214.1 Active 598149904 Problem Essential hypertension, benign 401.1 Active 2064070 Problem Chronic kidney disease, stage 1 N18.1 Active 750627465 Problem Wedge compression fracture of unspecified lumbar vertebra, subsequent encounter for fracture with nonunion S32.000K Active 634840964 Problem Chronic pain syndrome G89.4 Active 558942494 Problem 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 Active Problem Other obesity E66.8 Active 486370716 Problem 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 Problem Localized superficial swelling, mass, or lump 782.2 Active 185563221 Problem Pain in left shoulder M25.512 Active 374876264 Problem Presbyopia H52.4 Active 70537960 Problem Essential (primary) hypertension I10 Active 09860905 Problem Pain in right wrist M25.531 Active 26847729 ALLERGIES Substance Reaction Event Type Date Status Reglan Unknown Drug Allergy Dec, Active Prochlorperazine Unknown Drug Allergy Dec, Active Morphine Sulfate nausea Drug Allergy Dec, Active Inapsine Unknown Drug Allergy Dec, Active Clindamycin HCl stomach upset Drug Allergy Dec, Active seasonal Unknown Non Drug Allergy Dec, Active SOCIAL HISTORY No smoking Hx information available PLAN OF CARE VITAL SIGNS Height 70 in 2016-12-31 Weight 263 lb 2 oz lbs 2016-12-31 BMI 37.75 kg/m2 2016-12-31 Heart Rate 84 /min 2016-12-31 Temperature 97.5 degrees Fahrenheit 2016-12-31 Blood pressure systolic 145 mm Hg 2016-12-31 Blood pressure diastolic 88 mm Hg 2016-12-31 MEDICATIONS Medication Instructions Dosage Frequency Start Date End Date Duration Status Promethazine HCl 12.5 TAKE 1 TABLET BY MOUTH EVERY 6 HOURS NEEDED 8 Active Blood Glucose Monitor System One touch ultra mini as directed 12h Oct 30 Active Glucose Blood 1 In Vitro test BID as directed Apr, 30 Active Tradjenta 5 MG Orally Once a day 1 tablet 24h Nov, 90 days Active True Metrix Meter w/Device in vitro check BID as directed Jun, 30 days Active Flonase 50 MCG/ACT Nasally Once a day 1 puff in each nostril 24h Sep, 30 day(s) Active TRUEplus Lancets 30G 0 USE TO TEST TWICE DAILY 31 Active Lupron Depot 45 MG as directed Active Hydrochlorothiazide 50 MG 1 TABLET ONCE A DAY ORALLY 90 90 Active Clonidine HCl 0.1 MG Orally Once a day 1 tablet 24h 30 Active ProAir HFA 108 (90 Base) MCG/ACT Inhalation every 4 hrs PRN wheezing 2 puffs as needed 30 Active Levemir FlexTouch 100 UNIT/ML Subcutaneous QHS 20 units February, 30 days Active Calcium 400-133.3 1 PO daily Active True Result Test Strips as directed Aug, dx: 250.00 Active Lancets as directed Aug, Active Lisinopril 40 MG Orally Once a day 1 tablet 24h Dec, 90 Active Metformin HCl 500 MG Orally Twice a day 1 tab 12h Jul, 90 days Active Mucinex 600 MG Orally every 12 hrs, take with plenty of water 1 tablet as needed Jan, Active Gabapentin 300 MG Orally BID 1 capsule 12h Apr, 90 days Active True Metrix Blood Glucose Test 1 Dx code E11.65 In Vitro twice a day as directed 12h May, 30 Active Ultra-Thin II Mini Pen Needle 31G X 5 MM / Dx Code: E11.65 SQ QHS as directed Jul, 90 days Active Lancets Misc. 1 as directed Jul, 30 days Active Percocet 10-325 MG Orally every 6 hrs 1 tablet as needed 6h Active Casodex 50 MG Orally Once a day 1 tablet 24h 30 day(s) Active One Touch Mini Strips Bottle of 50 strips As directed 12h Oct, 30 Active Xgeva 120 MG/1.7ML Subcutaneous every three months 1.7 ml Active Phenergan 12.5 MG Orally every 6 hrs 1 tablet as needed 6h 10 Jul, 2016 Active Amlodipine Besylate 10 MG Orally Once a day take one tablet by mouth daily 24h 90 Active Flonase 50 MCG/ACT Nasally bid 1 spray in each nostril 12h Aug, 30 day(s) Active RESULTS No Results PROCEDURES Procedure Date Ordered Related Diagnosis Body Site Office Visit, Est Pt., Level 3 December 31, 2016 IMMUNIZATIONS No Known Immunizations
--- OUTSIDE RECORDS SUMMARY | 2017-03-11 23:57 | XMS REPORT | Referral Summary ---
Author Author [facility] Organization [facility] Address Unknown Phone Unavailable Care Team Providers Care Instrument Maker Name Role Phone [facility] Primary Care Physician Unavailable Encounter Date(s): 12/30/15 - 12/30/15 [facility] [address] [place], [place] [address] Discharge Diagnosis: Mass of right wrist Discharge Disposition: 01-Home or Self Care Attending Physician: Inder Rivas MD Admitting Physician: Inder Rivas MD Vital Signs No data available for [...] Ordered Lasix Daily, 0 Refill(s) Start Date: 11/20/14 Status: Ordered Lupron Depot 30 mg/4 months intramuscular injection, extended release IntraMuscular, 0 Refill(s) Start Date: 11/29/14 Status: Ordered Lupron Depot-Ped 11.25 mg/3 months intramuscular kit IntraMuscular, q3mo, 0 Refill(s) Start Date: 05/16/14 Status: Ordered [place] 10 mg-325 mg oral tablet tabs, Oral, q6hr, 0 Refill(s) Start Date: 11/29/14 Status: Ordered Norvasc Oral, Daily, 0 Refill(s) Start Date: 09/06/14 Status: Ordered oxyCODONE-acetaminophen 10 mg-325 mg oral tablet 1 tabs, Oral, q6hr, as needed for pain, # 10 tabs, 0 Refill(s) Start Date: 12/23/15 Status: Ordered potassium bitartrate 0 Refill(s) Start [...] Visit Note Author: Inder Rivas MD Date: 12/30/15 Assessment/Plan The MRI images were reviewed. I look specifically in the area of concern. I see no signs of mass effect or any type ofconcern for tumor growing. I don't see signs of a cyst in this area. I split the patient that I wouldn't recommend any surgical intervention unless this becomes larger or painful. I don't believe this is associated with any of his diagnosescancer from the past. I recommended to the patient that we continue to observe this. We'll see him back in 6 months time to assure that this has not gotten any larger.
--- OUTSIDE RECORDS SUMMARY | 2017-03-11 23:57 | XMS REPORT ---
Author Author [place] - Organization Unknown Address Unknown Phone Unavailable Allergies, Adverse Reactions, Alerts * naproxen causes Adverse Reaction. * Reglan causes Adverse Reaction. * Compazine causes JITTERY. * Inapsine causes JITTERY. * No Latex Allergy. * No IV Contrast Allergy. Problems * Colonoscopy* Status:Active. Procedures No Procedures Documented. Medication Medication reconciliation has not been performed. Results LAB--BEDSIDE TESTING from 04/03/2013 7:54 AMGlucose NPT 105 mg/dL H (70-100 mg/ dL) LAB--CHEMISTRY from 04/03/2013 8:21 AMAnion Gap 7 (3-20 ) BUN 6 mg/dL (4-20 mg/dL) Calcium 8.7 mg/dL (8.6-10.0 mg/dL) Chloride 103 mEq/L (99-109 mEq/L) CO2 26 mEq/L (22-32 mEq/L) Creatinine 0.74 mg/dL (0.64-1.27 mg/dL) eGFR >60 (>60- ) Glucose 108 mg/dL H (70-100 mg/dL) Potassium 2.8 mEq/L L (3.6-5.1 mEq/L) Sodium 136 mEq/L (136-144 mEq/L)
--- OUTSIDE RECORDS SUMMARY | 2017-03-11 23:57 | XMS REPORT ---
Author Author ScottgilbertCarmella harman [facility] Address [address] [place] [address] Care Team Providers Care Plastic Joint Maker Name Role Phone Carmella Nunez Unavailable [phone] PROBLEMS Type Condition ICD9-CM Code BPP40-PD Code Onset Dates Condition Status SNOMED Code Problem Spasm of muscle 728.85 Active 83418830 Problem Malignant neoplasm of prostate 185 Active 523863349 Problem Allergic rhinitis, cause unspecified 477.9 Active 20977573 Problem Pain in soft tissues of limb 729.5 Active 35645113 Problem Lipoma of other skin and subcutaneous tissue 214.1 Active 720415118 Problem Pain in joint, shoulder region 719.41 Active 711389400 Problem Other acute pain 338.19 Active 458634611 Problem 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 Problem Localized superficial swelling, mass, or lump 782.2 Active 608897371 Problem Chronic pain syndrome G89.4 Active 953278376 Problem 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 Active Problem Wedge compression fracture of unspecified lumbar vertebra, subsequent encounter for fracture with nonunion S32.000K Active 766684495 Problem Other obesity E66.8 Active 716456990 Problem Essential (primary) hypertension I10 Active 38548099 Problem Type 2 diabetes mellitus without complications E11.9 Active 256346322 Problem Localized adiposity E65 Active 038518074 Problem Acquired absence of other specified parts of digestive tract Z90.49 Active 617806406 Problem Complete rotator cuff tear or rupture of left shoulder, not specified as traumatic M75.122 Active 002971496 Problem Pain in left shoulder M25.512 Active 394993863 Problem Pain in right wrist M25.531 Active 53905696 Problem Essential (primary) hypertension I10 Active 04895382 Problem 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, 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 Active 529471918 Problem Personal history of malignant neoplasm of prostate Z85.46 Active 902904451 Problem Malignant neoplasm of prostate C61 Active 425930473 Problem Stiffness of unspecified shoulder, not elsewhere classified M25.619 Active Problem Giant cell arteritis 446.5 Active 496421498 Problem Age-related nuclear cataract, bilateral H25.13 Active 863045121 Problem Localized osteoarthrosis not specified whether primary or secondary, lower leg 715.36 Active 39329325 Problem Type 2 diabetes mellitus with hyperglycemia E11.65 Active 101463585214284 Problem 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 Active 63362704652213298 Problem Presbyopia H52.4 Active 48837520 Problem Chronic pancreatitis 577.1 Active 936284112 Problem Regular astigmatism, bilateral H52.223 Active 84871927 Assessment Diarrhea, unspecified R19.7 February, Active 11273834 Problem Chronic kidney disease, stage 1 N18.1 Active 557705945 Problem Degeneration of lumbar or lumbosacral intervertebral disc 722.52 Active 08085430 Problem Essential hypertension, benign 401.1 Active 5642150 Problem Pain in right knee M25.561 Active 122510195193689 Problem 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 113426350 ALLERGIES Substance Reaction Event Type Date Status Reglan Unknown Drug Allergy February, Active Prochlorperazine Unknown Drug Allergy February, Active Morphine Sulfate nausea Drug Allergy February, Active Inapsine Unknown Drug Allergy February, Active Clindamycin HCl stomach upset Drug Allergy February, Active seasonal Unknown Non Drug Allergy February, Active SOCIAL HISTORY No smoking Hx information available PLAN OF CARE Activity Details Pending Test COMPREHENSIVE METABOLIC PANEL Pending Test CBC (INCLUDES DIFF/PLT) 2 Weeks,Reason: VITAL SIGNS Height 70 in 2017-03-10 Weight 260lbs lbs 2017-03-10 BMI 37.30 kg/m2 2017-03-10 Heart Rate 74 /min 2017-03-10 Temperature 97.4 degrees Fahrenheit 2017-03-10 Blood pressure systolic 131 mm Hg 2017-03-10 Blood pressure diastolic 84 mm Hg 2017-03-10 MEDICATIONS Medication Instructions Dosage Frequency Start Date End Date Duration Status TRUEplus Lancets 30G 0 USE TO TEST TWICE DAILY 90 days Active Blood Glucose Monitor System One touch ultra mini as directed 12h 10 Oct 30 Active Lancets Misc. 1 as directed Jul, 30 days Active One Touch Mini Strips Bottle of 50 strips As directed 12Oct, 30 days Active True Metrix Meter w/Device in vitro check BID as directed Jun, 30 days Active Gabapentin 300 MG Orally BID 1 capsule 12h Apr, 90 days Active Lisinopril 40 MG Orally Once a day 1 tablet 24h Dec, 90 days Active Xgeva 120 MG/1.7ML Subcutaneous every three months 1.7 ml Active Clonidine HCl 0.1 MG Orally Once a day 1 tablet 24h 30 days Active Levemir FlexTouch 100 UNIT/ML Subcutaneous QHS 20 units February, 30 days Active ProAir HFA 108 (90 Base) MCG/ACT Inhalation every 4 hrs PRN wheezing 2 puffs as needed 90 days Active Amlodipine Besylate 10 MG Orally Once a day take one tablet by mouth daily 24h 90 days Active Lupron Depot 45 MG as directed Active Ultra-Thin II Mini Pen Needle 31G X 5 MM / Dx Code: E11.65 SQ QHS as directed Jul, 90 days Active Lancets as directed Aug, Active Metformin HCl 500 MG Orally Twice a day 2 tab 12h 90 Active Tradjenta 5 MG Orally Once a day 1 tablet 24h Nov, 90 days Active Soma 350 MG Orally Four times a day 1 tablet as needed 6h Active Glucose Blood 1 In Vitro test BID as directed Apr, 30 Active True Result Test Strips as directed Aug, dx: 250.00 Active Flonase 50 MCG/ACT Nasally Once a day 1 puff in each nostril 24h Sep, 30 days Active True Metrix Blood Glucose Test 1 Dx code E11.65 In Vitro twice a day as directed 12h May, 30 Active Lortab 7.5-325 MG Orally every 6 hrs 1 tablet as needed 6h Active Casodex 50 MG Orally Once a day 1 tablet 24h 30 day(s) Active Promethazine HCl 12.5 TAKE 1 TABLET BY MOUTH EVERY 6 HOURS NEEDED 8 Active Phenergan 25 MG Orally every 8 hrs prn n/v 1 tablet as needed February, Apr, 30 day(s) Active Calcium 400-133.3 1 PO daily Active Hydrochlorothiazide 50 MG 1 TABLET ONCE A DAY ORALLY 90 90 days Active Mucinex 600 MG Orally every 12 hrs, take with plenty of water 1 tablet as needed Jan, Active Levemir FlexTouch 100 UNIT/ML Subcutaneous QHS 20 units 30 days Active RESULTS No Results PROCEDURES Procedure Date Ordered Related Diagnosis Body Site COMPLETE CBC W/AUTO DIFF WBC March 10, 2017 COMPREHEN METABOLIC PANEL March 10, 2017 Office Visit, Est Pt., Level 3 March 10, 2017 IMMUNIZATIONS No Known Immunizations
--- OUTSIDE RECORDS SUMMARY | 2017-03-11 23:57 | XMS REPORT ---
Author Author Katrin Olvera [facility] [employer] Address Unknown Phone Unavailable Care Team Providers Care Fibreglass Gun Hand Name Role Phone Katrin Olvera Unavailable Allergies [...] Instructions Start Date End Date Status Dosage Amlodipine Besylate [facility] [address]-72 10 MG Orally Once a day take one tablet by mouth daily Results No Known Results Summary Purpose eClinicalWorks Submission
--- OUTSIDE RECORDS SUMMARY | 2017-03-11 23:58 | XMS REPORT ---
Author Author Dean Gannon Organization eClinicalWorks Address Unknown Phone Unavailable Care Team Providers Care Cardiac Monitor Name Role Phone Dean Gannon CP Unavailable [...] End Date Status Dosage True Metrix Meter [facility] [id number] w/Device in vitro check BID Jun 18, 2016 as directed Results No Known Results Summary Purpose eClinicalWorks Submission
--- OUTSIDE RECORDS SUMMARY | 2017-03-11 23:58 | XMS REPORT ---
Author Christi Wren [facility] [employer]Works Address Unknown Phone Unavailable Care Team Providers Care Sports Teacher Name Role Phone Christi Fournier CP Unavailable Allergies, Adverse Reactions, Alerts Substance Reaction Event Type Reglan Info Not Available Drug Allergy Prochlorperazine Info Not Available Drug Allergy Morphine Sulfate nausea Drug Allergy Inapsine Info Not Available Drug Allergy seasonal Info Not Available Non Drug Allergy Problems Problem Type Condition ICD-9 Code Onset Dates Condition Status Problem Headache 784.0 Active Problem Acute frontal sinusitis 461.1 Active Problem Giant cell arteritis 446.5 Active Problem Acute bronchitis 466.0 Active Assessment Pain in soft tissues of limb 729.5 Active Problem Spasm of muscle 728.85 Active Assessment Essential hypertension, benign 401.1 Active Problem Pain in soft tissues of limb 729.5 Active Problem Malignant neoplasm of prostate 185 Active Problem Localized osteoarthrosis not specified whether primary or secondary, lower leg 715.36 Active Problem Acute sinusitis, unspecified 461.9 Active Problem Encounter for removal of sutures V58.32 Active Problem Essential hypertension, benign 401.1 Active Problem Acute maxillary sinusitis 461.0 Active Problem Obesity, unspecified 278.00 Active Problem Degeneration of lumbar or lumbosacral intervertebral disc 722.52 Active Problem Nonspecific abnormal electrocardiogram (ECG) (EKG) 794.31 Active Problem Unspecified pre-operative examination V72.84 Active Problem 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 Active Problem Chronic pancreatitis 577.1 Active Problem Hypertrophy (benign) of prostate without urinary obstruction and other lower urinary tract symptoms [LUTS] 600.00 Oct 13, 2010 Active Problem Sprain and strain of other specified sites of knee and leg 844.8 Active Medications Medication Code System Code Instructions Start Date End Date Status Dosage Calcium MEDISPAN [address]-40 400-133.3 Orally Active 1 PO daily Mucinex MEDISPAN [address]-95 600 MG Orally every 12 hrs, take with plenty of water January 29, 2014 Active 1 tablet as needed [place] MEDISPAN [address]-93 10-325 MG Orally every 6 hrs Active 1 tablet as needed Zometa [facility] [address]-29 4 MG/5ML Intravenous Active as directed ProAir HFA [facility] [address]-09 108 (90 Base) MCG/ACT Inhalation every 4 hrs PRN wheezing January 05, 2013 Active 2 puffs as needed Hydrochlorothiazide [facility] [address]-37 25 MG Orally Once a day December Active 1 tablet Lupron Depot [facility] [address]-19 45 MG Intramuscular Active as directed Casodex [facility] [address]-27 50 MG Orally Once a day Active 1 tablet Potassium Chloride [facility] [address]-62 20 MEQ Orally Three times a day Active 1 capsule Soma [facility] [address]-67 350 MG Orally twice a day January 29, 2014 Active 1 tablet as needed Amlodipine Besylate [facility] [address]-01 10 MG Orally Once a day Active take one tablet by mouth daily Procedures Procedure Coding System Code Date Office Visit, Est Pt., Level 3 CPT-4 99378 May 16, 2014 Vital Signs Date/Time: May 16, 2014 Weight 254.0 lbs Height 70 in Blood Pressure Diastolic 99 mm Hg Blood Pressure Systolic 151 mm Hg Temperature 97.8 F Cardiac Monitoring Heart Rate 67 /min Results No Known Results Summary Purpose eClinicalWorks Submission
--- OUTSIDE RECORDS SUMMARY | 2017-03-11 23:58 | XMS REPORT ---
Author Author Siena Marin [facility] Address [address] [place] [address] Care Team Providers Care Community Outreach Coordinator Name Role Phone Marin, Siena Unavailable [phone] PROBLEMS Type Condition ICD9-CM Code CKD15-ZB Code Onset Dates Condition Status SNOMED Code Problem Degeneration of lumbar or lumbosacral intervertebral disc 722.52 Active 96299118 Problem 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 Active 42989682495889679 Problem Chronic pancreatitis 577.1 Active 844117949 Problem Giant cell arteritis 446.5 Active 832657067 Problem Localized osteoarthrosis not specified whether primary or secondary, lower leg 715.36 Active 24448441 Problem Pain in left shoulder M25.512 Active 293010185 Problem Malignant neoplasm of prostate 185 Active 456321770 Problem Presbyopia H52.4 Active 77115926 Problem Spasm of muscle 728.85 Active 50735792 Problem Regular astigmatism, bilateral H52.223 Active 34108733 Problem Type 2 diabetes mellitus with hyperglycemia E11.65 Active 524365209695069 Problem Age-related nuclear cataract, bilateral H25.13 Active 137179932 Problem Wedge compression fracture of unspecified lumbar vertebra, subsequent encounter for fracture with nonunion S32.000K Active 946767386 Problem Chronic pain syndrome G89.4 Active 215629056 Problem Lipoma of other skin and subcutaneous tissue 214.1 Active 802401860 Problem Allergic rhinitis, cause unspecified 477.9 Active 28402393 Problem Pain in soft tissues of limb 729.5 Active 29784293 Problem 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 594241444 Problem Pain in right knee M25.561 Active 375580528811599 Problem Essential hypertension, benign 401.1 Active 7010857 Problem Chronic kidney disease, stage 1 N18.1 Active 911944698 Problem 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 Problem Localized superficial swelling, mass, or lump 782.2 Active 263951996 Problem Pain in joint, shoulder region 719.41 Active 772311622 Problem Other acute pain 338.19 Active 481965422 Problem Essential (primary) hypertension I10 Active 68353010 Problem Pain in right wrist M25.531 Active 92727083 Problem 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
--- OUTSIDE RECORDS SUMMARY | 2017-03-11 23:58 | XMS REPORT | Referral Summary ---
Author Author [facility] Organization [facility] Address Unknown Phone Unavailable Care Team Providers Care Custom Designer Name Role Phone [facility] Primary Care Physician Unavailable Encounter ELEN [id number] Date(s): 06/08/16 - 06/08/16 [facility] [address] [place] [address] [phone] Discharge Diagnosis: Peripheral edema Discharge Diagnosis: Headache Discharge Disposition: 01-Home or Self Care Attending Physician: Aj Cruz MD Admitting Physician: Aj Cruz MD Vital Signs Most recent to 1 oldest [Reference Range]: Temperature Oral 36.5 degC [35.8-37.3 degC] (06/08/16 8:17 PM) Peripheral Pulse 70 bpm Rate [60-100 bpm] (06/08/16 8:17 PM) Heart Rate Monitored 67 bpm [60-100 bpm] (06/09/16 12:01 AM) Respiratory Rate 16 br/min [14-20 br/min] (06/09/16 12:01 AM) Blood Pressure 123/83 mmHg [90-140/60-90 mmHg] (06/09/16 12:01 AM) Mean Arterial 98 mmHg Pressure, Cuff (06/08/16 11:00 PM) SpO2 96 % (06/09/16 12:01 AM) Problem List Condition Effective Dates Status Health Status Informant Hypertension(Confirm Active patient ed) Prostate Active patient ca(Confirmed) Sarcoma(Confirmed) Active patient Allergies, Adverse Reactions, Alerts No data available for this section Medications Calci-Mix mg, Oral, Daily, 0 Refill(s) Start Date: 06/08/16 Status: Ordered Calcium 500+D tabs, Chewed, BID, 0 Refill(s) Start Date: 06/08/16 Status: Ordered Lasix Daily, 0 Refill(s) Start Date: 06/08/16 Status: Ordered Lortab 5/325 tabs, Oral, q6hr, 0 Refill(s) Start Date: 06/08/16 Status: Ordered Lupron Depot 7.5 mg/month intramuscular injection, extended release IntraMuscular, qMonth, 0 Refill(s) Start Date: 06/08/16 Status: Ordered metFORMIN Oral, 0 Refill(s) Start Date: 06/08/16 Status: Ordered Results Hematology Most recent to 1 oldest [Reference Range]: WBC [4.8-10.8 8.3 10*3/uL 10*3/uL] (06/08/16 8:34 PM) RBC [4.60-6.20] 4.33 *LOW* (06/08/16 8:34 PM) Hgb [14.0-18.0 13.3 gm/dL gm/dL] *LOW* (06/08/16 8:34 PM) Hct [42.0-52.0 %] 36.3 % *LOW* (06/08/16 8:34 PM) MCV [82.0-99.0 fL] 83.8 fL (06/08/16 8:34 PM) MCH [27.0-32.0 pg] 30.7 pg (06/08/16 8:34 PM) MCHC [32.0-36.0 36.6 gm/dL gm/dL] *HI* (06/08/16 8:34 PM) RDW [11.5-14.5 %] 12.4 % (06/08/16 8:34 PM) Platelet [150-400 162 10*3/uL 10*3/uL] (06/08/16 8:34 PM) MPV [9.4-12.3 fL] 11.9 fL (06/08/16 8:34 PM) Immature 0.4 % Granulocytes (06/08/16 8:34 PM) [0.0-1.0 %] Neutrophils [51-75 51 % %] (06/08/16 8:34 PM) Lymphocytes [20-46 39 % %] (06/08/16 8:34 PM) Monocytes [4-11 %] 8 % (06/08/16 8:34 PM) Eosinophils [0-4 %] 2 % (06/08/16 8:34 PM) Basophils [0-2 %] 0 % (06/08/16 8:34 PM) Neutro Absolute 4.23 10*3 [1.90-7.00 10*3] (06/08/16 8:34 PM) Lymph Absolute 3.20 10*3 [0.80-3.30 10*3] (06/08/16 8:34 PM) [place] Absolute 0.63 10*3 [0.30-1.00 10*3] (06/08/16 8:34 PM) Eos Absolute 0.17 10*3 [0.00-0.50 10*3] (06/08/16 8:34 PM) Baso Absolute 0.03 10*3 [0.00-0.20 10*3] (06/08/16 8:34 PM) Toxic Gran Occasional *ABN* (06/08/16 8:34 PM) Nucleated RBC 0.0 /100 WBC Automated [0 /100 (06/08/16 8:34 PM) WBC] Differential Scanned Slide (06/08/16 8:34 PM) Chemistry Most recent to 1 oldest [Reference Range]: Sodium Lvl [136-144 137 mEq/L mEq/L] (06/08/16 8:34 PM) Potassium Lvl 3.4 mEq/L 1 [3.6-5.1 mEq/L] *LOW* (06/08/16 8:34 PM) Chloride [99-109 101 mEq/L mEq/L] (06/08/16 8:34 PM) CO2 [22-32 mEq/L] 27 mEq/L (06/08/16 8:34 PM) AGAP [3-20] 9 (06/08/16 8:34 PM) BUN [4-20 mg/dL] 11 mg/dL (06/08/16 8:34 PM) Glucose Lvl [70-100 134 mg/dL mg/dL] *HI* (06/08/16 8:34 PM) Creatinine Lvl 1.12 mg/dL [0.64-1.27 mg/dL] (06/08/16 8:34 PM) eGFR [>60] >60 2 (06/08/16 8:34 PM) Calcium Lvl 9.1 mg/dL [8.6-10.0 mg/dL] (06/08/16 8:34 PM) Albumin Lvl [3.5-4.8 4.1 gm/dL gm/dL] (06/08/16 8:34 PM) Total Protein 6.7 gm/dL [6.1-7.9 gm/dL] (06/08/16 8:34 PM) Globulin [1.9-4.3 2.6 gm/dL gm/dL] (06/08/16 8:34 PM) ALT [17-63 U/L] 33 U/L (06/08/16 8:34 PM) AST [15-41 U/L] 33 U/L (06/08/16 8:34 PM) Alk Phos [26-104 91 U/L U/L] (06/08/16 8:34 PM) Bili Total [0.2-1.2 0.8 mg/dL 3 mg/dL] (06/08/16 8:34 PM) BNP [0-99 pg/mL] 14 pg/mL (06/08/16 8:34 PM) Troponin [<0.06 <0.05 ng/mL ng/mL] (06/08/16 8:34 PM) 1Result Comment: Hemolyzed specimen. The following tests may be affected: ALT, AST, Ammonia, Iron, Potassium, LDH, Amylase, CPK, and Total Bilirubin. 2Result Comment: Multiply eGFR results by 1.21 for race. 3Result Comment: Naproxen, specifically the metabolite O-desmethylnaproxen, may cause spurious elevation in Total Bilirubin levels. Immunizations No data available for this section Procedures No data available for this section Social History Social History Type Response Smoking Status Never smoker Assessment and Plan No data available for this section
--- OUTSIDE RECORDS SUMMARY | 2017-03-11 23:58 | XMS REPORT ---
Author Bret Dennison Organization [employer] Address Unknown Phone Unavailable Care Team Providers Care Tour Actor Name Role Phone Bret Olmedo CP Unavailable [...] Instructions Start Date End Date Status Dosage [facility] [address]-31 350 MG Orally Four times a day Aug 11, 2016Aug 1 tablet as needed Results No Known Results Summary Purpose [employer]Clinical[employer] Submission
--- OUTSIDE RECORDS SUMMARY | 2017-03-11 23:58 | XMS REPORT ---
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 Active 42238237209884206 Problem Chronic pancreatitis 577.1 Active 450871689 Problem Giant cell arteritis 446.5 Active 199965506 Problem Localized osteoarthrosis not specified whether primary or secondary, lower leg 715.36 Active 43159149 Problem Pain in left shoulder M25.512 Active 940161172 Problem Malignant neoplasm of prostate 185 Active 534963803 Problem Presbyopia H52.4 Active 87573856 Problem Spasm of muscle 728.85 Active 63394592 Problem Regular astigmatism, bilateral H52.223 Active 14313380 Problem Type 2 diabetes mellitus with hyperglycemia E11.65 Active 837538869962796 Problem Age-related nuclear cataract, bilateral H25.13 Active 932272635 Problem Wedge compression fracture of unspecified lumbar vertebra, subsequent encounter for fracture with nonunion S32.000K Active 659703408 Problem Chronic pain syndrome G89.4 Active 153348682 Problem Lipoma of other skin and subcutaneous tissue 214.1 Active 105242018 Problem Allergic rhinitis, cause unspecified 477.9 Active 79109930 Problem Pain in soft tissues of limb 729.5 Active 85114962 Problem 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 303980621 Problem Pain in right knee M25.561 Active 690561341153917 Problem Essential hypertension, benign 401.1 Active 6111182 Problem Chronic kidney disease, stage 1 N18.1 Active 139440200 Problem 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 Problem Localized superficial swelling, mass, or lump 782.2 Active 333593562 Problem Pain in joint, shoulder region 719.41 Active 049944629 Problem Other acute pain 338.19 Active 052732066 Problem Essential (primary) hypertension I10 Active 71594524 Problem Pain in right wrist M25.531 Active 62678039 Problem 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
--- OUTSIDE RECORDS SUMMARY | 2017-03-11 23:58 | XMS REPORT ---
Author Author Katrin Olvera [facility] [employer] Address Unknown Phone Unavailable Care Team Providers Care Director Of Catering Sales Name Role Phone Katrin Olvera Unavailable Allergies No Known Allergies Problems Problem Type Condition ICD-9 Code Onset Dates Condition Status Problem Degeneration [...] Instructions Start Date End Date Status Dosage Augmentin [facility] [address]-12 875-125 MG Orally Twice a day Jun 11, 2015 Jun 18, 2015 1 tablet Results No Known Results Summary Purpose eClinicalWorks Submission
--- OUTSIDE RECORDS SUMMARY | 2017-03-11 23:58 | XMS REPORT | Referral Summary ---
Author Organization Unknown Address Unknown Phone Unavailable Care Team Providers Care Account Associate Name Role Phone [facility] Primary Care Physician Unavailable Encounter ELEN [id number] Date(s): 11/28/14 - 11/28/14 [facility] Gely, JARON, Founderberto Lambert, Plastic Surgery [address] [place], [place] [address] [place] Discharge Diagnosis: Lipoma Discharge Disposition: Home or Self Care Attending [...] 0 Refill(s) Start Date: 05/16/14 Status: Ordered Keflex 500 mg oral capsule 1 caps, Oral, q8hr, # 30 caps, 0 Refill(s), Pharmacy: [id number] , 1 caps Oral q8hr Start Date: 11/22/14 Stop Date: 12/01/14 Status: Ordered Lasix Daily, 0 Refill(s) Start [...] Extracted from: Title: Office Visit Note Author: Izaiah Han MD Date: 11/28/14 Assessment/Plan Lipoma At this point I discussed him about massaging the scar to help release the contracture from the scar. I discussed with him that the mild ectropion will resolve in time. I discussed with the width of the femur pain pills. He'll follow-up with us on an as-needed basis. Ordered: Postoperative Est [id number] Return to Clinic Orders: oxyCODONE-acetaminophen, 1 tabs, Oral, q4hr, as needed for pain, # 20 tabs, 0 Refill(s) Extracted from: Title: Ambulatory Patient Education Author: Izaiah Han MD Date : 11/28/14 Family Medicine Lipoma A lipoma is a noncancerous (benign ) tumor composed of fat cells. They are usually found under the skin (subcutaneous ). A lipoma may occur in any tissue of the body that contains fat. Common areas for lipomas to appear include the back, shoulders, buttocks, and thighs. Lipomas are a very common soft tissue growth. They are soft and grow slowly. Most problems caused by a lipoma depend on where it is growing. DIAGNOSIS A lipoma can be diagnosed with a physical exam. These tumors rarely become cancerous, but radiographic studies can help determine this for certain. Studies used may include: Computerized X-ray scans (CT or CAT scan). Computerized magnetic scans (MRI). TREATMENT Small lipomas that are not causing problems may be watched. If a lipoma continues to enlarge or causes problems, removal is often the best treatment. Lipomas can also be removed to improve appearance. Surgery is done to remove the fatty cells and the surrounding capsule. Most often, this is done with medicine that numbs the area (local anesthetic ). The removed tissue is examined under a microscope to make sure it is not cancerous. Keep all follow- up appointments with your caregiver. SEEK MEDICAL CARE IF: The lipoma becomes larger or hard. The lipoma becomes painful, red, or increasingly swollen. These could be signs of infection or a more serious condition. Document Released: 09/24/2003 Document Revised: 12/26/2012 Document Reviewed: ExitCare Patient Information 2014 vzaar. No follow up information was provided. Referrals to Other Providers Referred by: Izaiah Han MD
--- OUTSIDE RECORDS SUMMARY | 2017-03-11 23:58 | XMS REPORT ---
Author Bret Dennison Organization [employer] Address Unknown Phone Unavailable Care Team Providers Care A Class Lineman Name Role Phone Bret Olmedo CP Unavailable Allergies No Known Allergies Problems Problem Type Condition Code Onset Dates Condition Status Assessment Type 2 diabetes mellitus with hyperglycemia E11.65 Active Problem Degeneration of lumbar or lumbosacral [...] Instructions Start Date End Date Status Dosage Ultra-Thin II Mini Pen Needle [facility] [address] 31G X 5 MM / Dx Code: E11.65 SQ [facility] Aug 05, 2015 as directed Results No Known Results Summary Purpose eClinicalWorks Submission
--- OUTSIDE RECORDS SUMMARY | 2017-03-11 23:58 | XMS REPORT ---
Author Christi Wren [facility] [employer] Address Unknown Phone Unavailable Care Team Providers Care Patternmaker Grader Name Role Phone Christi Fournier CP Unavailable [...] Assessment Essential hypertension, benign 401.1 Active Problem Acute sinusitis, unspecified 461.9 Active Assessment Spasm of muscle 728.85 Active Problem Acute bronchitis 466.0 Active Problem Localized osteoarthrosis not specified whether primary or secondary, lower leg 715.36 Active Problem Acute frontal sinusitis 461.1 Active Problem Encounter for removal of sutures V58.32 Active Problem Malignant neoplasm of prostate 185 Active Problem Degeneration of lumbar or lumbosacral intervertebral disc 722.52 Active Problem Essential hypertension, benign 401.1 Active Assessment Acute bronchitis 466.0 Active Problem Obesity, unspecified 278.00 Active Problem Hypertrophy (benign) of prostate without urinary obstruction and other lower urinary tract symptoms [LUTS] 600.00 Oct 13, 2010 Active Problem Nonspecific abnormal electrocardiogram (ECG) (EKG) 794.31 Active Problem Acute maxillary sinusitis 461.0 Active Problem Unspecified pre-operative examination V72.84 Active Problem 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 Active Problem Chronic pancreatitis 577.1 Active Medications Medication Code System Code Instructions Start Date End Date Status Dosage Mucinex [facility] [address]-14 600 MG Orally every 12 hrs, take with plenty of water January 29, 2014 Active 1 tablet as needed Doxycycline Hyclate [facility] [address]-68 100 MG Orally Twice a day January 29, 2014 February 08, 2014 Active 1 capsule Lupron Depot [facility] [address]-88 45 MG Intramuscular Active as directed Casodex [facility] [address]-85 50 MG Orally Once a day Active 1 tablet Zometa [facility] [address]-45 4 MG/5ML Intravenous Active as directed Hydrochlorothiazide [facility] [address]-91 25 MG Orally Once a day January 05, 2013 Active 1 tablet Potassium Chloride [facility] [address]-56 20 MEQ Orally Three times a day Active 1 capsule Amlodipine Besylate [facility] [address]-57 10 MG Orally Once a day Active take one tablet by mouth daily Calcium [facility] [address] 400-133.3 Orally Active 1 PO daily ProAir HFA [facility] [address]-09 108 (90 Base) MCG/ACT Inhalation every 4 hrs PRN wheezing January 05, 2013 Active 2 puffs as needed [place] [facility] [address]-27 10-325 MG Orally every 6 hrs Active 1 tablet as needed Soma [facility] [address]-16 350 MG Orally twice a day January 29, 2014 Active 1 tablet as needed Procedures Procedure Coding System Code Date Office Visit, Est Pt., Level 3 CPT-4 19910 January 29, 2014 Vital Signs Date/Time: January 29, 2014 Weight 254.0 lbs Height 70 inches Blood Pressure Diastolic 95 mm Hg Blood Pressure Systolic 172 mm Hg Temperature 97.9 F Cardiac Monitoring Heart Rate 74 Beats per Minute Results No Known Results Summary Purpose eClinicalWorks Submission
--- OUTSIDE RECORDS SUMMARY | 2017-03-11 23:58 | XMS REPORT ---
Author Maco Simpson Organization [employer] Address Unknown Phone Unavailable Care Team Providers Care Web Master Name Role Phone Maco Mason Unavailable Allergies No Known Allergies Problems Problem [...]
--- OUTSIDE RECORDS SUMMARY | 2017-03-11 23:58 | XMS REPORT ---
Author Author Christi Fournier Organization [employer] Address Unknown Phone Unavailable Care Team Providers Care Rocket Scientist Name Role Phone Christi Fournier CP Unavailable Allergies No Known Allergies Problems Problem Type Condition ICD-9 Code Onset Dates Condition Status Problem Headache 784.0 Active Problem Acute frontal sinusitis 461.1 Active Problem Giant cell arteritis 446.5 Active Problem Acute bronchitis 466.0 Active Problem Spasm of muscle 728.85 Active Problem Pain in soft tissues of [...] of knee and leg 844.8 Active Medications No Known Medications Results No Known Results Summary Purpose eClinicalWorks Submission
--- OUTSIDE RECORDS SUMMARY | 2017-03-11 23:58 | XMS REPORT | Referral Summary ---
Author Author [facility] Organization [facility] Address Unknown Phone Unavailable Care Team Providers Care Hoop Maker Name Role Phone No PCP, Pt States Primary Care Physician [phone] Encounter VC Date(s): 08/11/16 - 08/11/16 [facility] [address] [place] [address] [phone] Discharge Diagnosis: Compression fracture of L2 Discharge Disposition: 01-Home or Self Care Attending Physician: Alejandro Pena MD Admitting Physician: Alejandro Pena MD Vital Signs Most recent to 1 oldest [Reference Range]: Temperature Oral 36.7 degC [35.8-37.3 degC] (08/11/16 8:30 AM) Peripheral Pulse 79 bpm Rate [60-100 bpm] (08/11/16 10:03 AM) Respiratory Rate 16 br/min [14-20 br/min] (08/11/16 10:03 AM) Blood Pressure 139/93 mmHg [90-140/60-90 mmHg] (08/11/16 10:03 AM) SpO2 97 % (08/11/16 10:03 AM) Problem List Condition Effective Dates Status Health Status Informant Cancer(Confirmed) Active patient Hypertension(Confirm Active patient ed) Fibrosarcoma(Confirm Active patient ed) Prostate Active patient cancer(Confirmed) Mass of right Active wrist(Confirmed) Allergies, Adverse Reactions, Alerts Substance Reaction Severity Status antihistamines Shakes Severe Active Compazine Jittery Mild Active Compazine Spansule Shakes Severe Active Flexeril Hives Severe Active Shakes Inapsine Jittery Mild Active morphine shakes Severe Active Reglan Jittery Mild Active Medications Calci-Mix mg, Oral, Daily, 0 Refill(s) Start Date: 06/08/16 Status: Ordered Calcium 500+D tabs, Chewed, BID, 0 Refill(s) Start Date: 06/08/16 Status: Ordered calcium carbonate 0 Refill(s) Start Date: 11/29/14 Status: Ordered calcium carbonate 0 Refill(s) Start Date: 07/01/16 Status: Ordered calcium-magnesium 119 mg-71.5 mg oral delayed release tablet tabs, Oral, Daily, 0 Refill(s) Start Date: 05/16/14 Status: Ordered captopril-hydrochlorothiazide 25 mg-15 mg oral tablet tabs, Oral, Daily, 0 Refill(s) Start Date: 05/16/14 Status: Ordered Casodex mg, Oral, q24hr, 0 Refill(s) Start Date: 11/29/14 Status: Ordered cloNIDine 0 Refill(s) Start Date: 07/01/16 Status: Ordered Klor-Con Oral, BID, 0 Refill(s) Start Date: 07/01/16 Status: Ordered Lantus SubCutaneous, 0 Refill(s) Start Date: 07/01/16 Status: Ordered Lasix Daily, 0 Refill(s) Start Date: 11/29/14 Status: Ordered Lasix Daily, 0 Refill(s) Start Date: 06/08/16 Status: Ordered Lasix Daily, 0 Refill(s) Start Date: 09/06/14 Status: Ordered Lasix Daily, 0 Refill(s) Start Date: 07/01/16 Status: Ordered Lortab 5/325 tabs, Oral, q6hr, 0 Refill(s) Start Date: 06/08/16 Status: Ordered Lortab 5/325 tabs, Oral, q6hr, 0 Refill(s) Start Date: 07/01/16 Status: Ordered Lupron Depot 30 mg/4 months intramuscular injection, extended release IntraMuscular, 0 Refill(s) Start Date: 11/29/14 Status: Ordered Lupron Depot 7.5 mg/month intramuscular injection, extended release IntraMuscular, qMonth, 0 Refill(s) Start Date: 06/08/16 Status: Ordered Lupron Depot-Ped 11.25 mg/3 months intramuscular kit IntraMuscular, q3mo, 0 Refill(s) Start Date: 05/16/14 Status: Ordered metFORMIN Oral, 0 Refill(s) Start Date: 06/08/16 Status: Ordered metFORMIN Oral, 0 Refill(s) Start Date: 07/01/16 Status: Ordered [place] 10 mg-325 mg oral tablet tabs, Oral, [...] 0 Refill(s) Start Date: 10/24/14 Status: Ordered Soma 250 mg oral tablet 250 mg 1 tabs, Oral, BID, Spasm, # 5 tabs, 0 Refill(s) Start Date: 05/10/16 Status: Ordered Zometa mg, IV, 0 Refill(s) [...]
--- OUTSIDE RECORDS SUMMARY | 2017-03-11 23:58 | XMS REPORT ---
Author Maco Simpson Organization [employer] Address Unknown Phone Unavailable Care Team Providers Care Electronic Equipment Repairer Name Role Phone Maco Mason Unavailable Allergies [...]
--- OUTSIDE RECORDS SUMMARY | 2017-03-11 23:58 | XMS REPORT | Referral Summary ---
Author Author [facility] Organization [facility] Address Unknown Phone Unavailable Care Team Providers Care Neurodiagnostic Tech Name Role Phone [facility] Primary Care Physician Unavailable Encounter [facility] [id number] Date(s): 01/04/16 - 01/04/16 [facility] [address] [place] [address] Discharge Diagnosis: Post-operative pain Discharge Disposition: 01-Home or Self Care Attending Physician: Alejandro Pena MD Admitting Physician: Alejandro Pena MD Vital Signs Most recent to 1 oldest [Reference Range]: Temperature Oral 36.5 degC [35.8-37.3 degC] (01/04/16 4:42 AM) Peripheral Pulse 99 bpm Rate [60-100 bpm] (01/04/16 4:42 AM) Heart Rate Monitored 86 bpm [60-100 bpm] (01/04/16 6:50 AM) Respiratory Rate 18 br/min [14-20 br/min] (01/04/16 6:50 AM) Blood Pressure 154/93 mmHg [90-140/60-90 mmHg] *HI* (01/04/16 6:50 AM) SpO2 98 % (01/04/16 6:50 AM) Problem List Condition Effective Dates Status [...] 0 Refill(s) Start Date: 05/16/14 Status: Ordered [place] 10 mg-325 mg oral tablet tabs, Oral, [...]
--- OUTSIDE RECORDS SUMMARY | 2017-03-11 23:58 | XMS REPORT ---
Author Maco Simpson [facility] [employer] Address Unknown Phone Unavailable Care Team Providers Care Ortho Tech Name Role Phone Maco Mason CP Unavailable [...]
--- OUTSIDE RECORDS SUMMARY | 2017-03-11 23:58 | XMS REPORT ---
Author Author Jennifer Case Organization [employer] Address Unknown Phone Unavailable Care Team Providers Care [place] Stayer Machine Operator Name Role Phone Jennifer Case CP Unavailable Allergies No Known Allergies Problems [...]
--- OUTSIDE RECORDS SUMMARY | 2017-03-11 23:59 | XMS REPORT ---
Author Maco Simpson Organization [employer] Address Unknown Phone Unavailable Care Team Providers Care Vibration Analyst Name Role Phone Maco Mason CP Unavailable [...]
--- OUTSIDE RECORDS SUMMARY | 2017-03-11 23:59 | XMS REPORT ---
Author Author Gerard Jose Organization [facility] Address [address], [place] [id number] Care Team Providers Care Boom Supervisor Name Role Phone Jose Gee Unavailable [phone] PROBLEMS Type Condition ICD9-CM Code LIP94-EF Code Onset Dates Condition Status SNOMED Code Problem Malignant neoplasm of prostate 185 Active 220605812 Problem Localized osteoarthrosis not specified whether primary or secondary, lower leg 715.36 Active 93537264 Problem Pain in soft tissues of limb 729.5 Active 97577015 Problem Spasm of muscle 728.85 Active 15315871 Problem Allergic rhinitis, cause unspecified 477.9 Active 78416637 Problem Lipoma of other skin and subcutaneous tissue 214.1 Active 300460495 Problem Pain in joint, shoulder region 719.41 Active 072604064 Problem Other acute pain 338.19 Active 336091925 Problem 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 Problem Essential hypertension, benign 401.1 Active 5543552 Problem Localized superficial swelling, mass, or lump 782.2 Active 132644951 Problem Chronic pain syndrome G89.4 Active 793659459 Problem 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 Active Problem Wedge compression fracture of unspecified lumbar vertebra, subsequent encounter for fracture with nonunion S32.000K Active 949289384 Problem Localized adiposity E65 Active 998932889 Problem Essential (primary) hypertension I10 Active 78187558 Problem Complete rotator cuff tear or rupture of left shoulder, not specified as traumatic M75.122 Active 790585959 Problem Malignant neoplasm of prostate C61 Active 773524658 Problem Pain in right wrist M25.531 Active 02084438 Problem Essential (primary) hypertension I10 Active 80250501 Problem Other obesity E66.8 Active 536962621 Problem Personal history of malignant neoplasm of prostate Z85.46 Active 656326638 Problem Type 2 diabetes mellitus without complications E11.9 Active 806533288 Problem Stiffness of unspecified shoulder, not elsewhere classified M25.619 Active Problem 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, 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 Active 904411595 Problem Chronic pancreatitis 577.1 Active 165023288 Problem Regular astigmatism, bilateral H52.223 Active 12561628 Problem Giant cell arteritis 446.5 Active 263030248 Problem Age-related nuclear cataract, bilateral H25.13 Active 397187919 Problem Degeneration of lumbar or lumbosacral intervertebral disc 722.52 Active 87172041 Problem Pain in left shoulder M25.512 Active 103880809 Problem 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 Active 67817496213546932 Problem Presbyopia H52.4 Active 41213998 Problem 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
--- OUTSIDE RECORDS SUMMARY | 2017-03-11 23:59 | XMS REPORT ---
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 Active Problem Other obesity E66.8 Active Problem Chronic pancreatitis 577.1 Active Problem Essential (primary) hypertension I10 Active Problem Pain in left shoulder M25.512 Active Problem Pain in right wrist M25.531 Active Problem 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 Problem Pain in right knee M25.561 Active Problem Malignant neoplasm of prostate 185 Active Problem Localized osteoarthrosis not specified whether primary or secondary, lower leg 715.36 Active Problem Chronic kidney disease, stage 1 N18.1 Active Problem Giant cell arteritis 446.5 Active Problem Regular astigmatism, bilateral H52.223 Active Problem Presbyopia H52.4 Active Problem Type 2 diabetes mellitus with hyperglycemia E11.65 Active Problem Age-related nuclear cataract, bilateral H25.13 Active Problem Allergic rhinitis, cause unspecified 477.9 Active Problem Lipoma of other skin and subcutaneous tissue 214.1 Active Problem Spasm of muscle 728.85 Active Problem Pain in soft tissues of limb 729.5 Active Problem 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
--- OUTSIDE RECORDS SUMMARY | 2017-03-11 23:59 | XMS REPORT ---
Author Bret Dennison Organization [employer] Address Unknown Phone Unavailable Care Team Providers Care Car Tester Name Role Phone Bret Olmedo CP Unavailable [...]
--- OUTSIDE RECORDS SUMMARY | 2017-03-11 23:59 | XMS REPORT ---
Author Author Lucrecia Zhou [facility] [employer] Address Unknown Phone Unavailable Care Team Providers Care Unit Coordinator Name Role Phone Lucrecia Zhou CP Unavailable Allergies, Adverse Reactions, Alerts Substance Reaction Event Type Reglan Info Not Available Drug Allergy Prochlorperazine Info Not Available Drug Allergy Morphine Sulfate nausea Drug Allergy Inapsine Info Not Available Drug Allergy seasonal Info Not Available Non Drug Allergy Problems Problem Type Condition Code Onset Dates Condition Status Assessment Other intervertebral disc degeneration, lumbar region M51.36 Active Problem Degeneration of lumbar or lumbosacral [...] swelling, mass, or lump 782.2 Active Medications Medication Code System Code Instructions Start Date End Date Status Dosage Clonidine HCl [facility] 85308828823 0.1 MG Orally Once a day 1 tablet True Metrix Blood Glucose Test [facility] [address] 1 In Vitro twice a day Jun 16, 2016 as directed Lancets [facility] 0 1 test twice daily Aug 05, 2015 as directed Glucose Blood [facility] [address]-09 1 In Vitro test BID April 23, 2016 as directed Lisinopril [facility] [address]-62 40 MG Orally Once a day December 30, 2015 1 tablet Xgeva [facility] [address]-86 120 MG/1.7ML Subcutaneous every three months 1.7 ml Casodex [facility] [address]-38 50 MG Orally Once a day 1 tablet Phenergan [facility] [address]-34 12.5 MG Orally every 6 hrs Jul 27, 2016 1 tablet as needed True Metrix Meter [facility] [address]74-[address]40 w/Device in vitro check BID Jun 18, 2016 as directed OxyContin [facility] [address]-27 20 MG Orally every 12 hrs 1 tablet Gabapentin [facility] [address]-35 300 MG Orally BID May 01, 2015 1 capsule Potassium Chloride [facility] [address]-27 20 MEQ Orally Three times a day JulDec 02, 2016 1 capsule Mucinex [facility] [address]-97 600 MG Orally every 12 hrs, take with plenty of water January 29, 2014 1 tablet as needed [place] [facility] [address]-45 10-325 MG Orally every 6 hrs 1 tablet as needed Flonase [facility] [address]-14 50 MCG/ACT Nasally bid Sep 07, 2014 1 spray in each nostril Levemir FlexTouch [facility] [address]-26 100 UNIT/ML Subcutaneous QHS March 02, 2016 20 units Amlodipine Besylate [facility] [address]-20 10 MG Orally Once a day take one tablet by mouth daily Calcium [facility] [address]-40 400-133.3 Orally 1 PO daily Hydrochlorothiazide [facility] [address]-00 50 MG Orally Once a day 1 tablet ProAir HFA [facility] [address]-67 108 (90 Base) MCG/ACT Inhalation every 4 hrs PRN wheezing January 05, 2013 2 puffs as needed Metformin HCl [facility] [address]-80 500 MG Orally Twice a day Aug 01, 2015 1 tab Ultra-Thin II Mini Pen Needle [facility] [address]71 31G X 5 MM SQ QHS Aug 05, 2015 as directed Lupron Depot [facility] [address]-64 45 MG Intramuscular as directed Procedures Procedure Coding System Code Date Office Visit, Est Pt., Level 3 CPT-4 49518 Aug 07, 2016 Vital Signs Date/Time: Aug 07, 2016 BMI 37.77 Index Weight 263 lbs 4 oz lbs Height 70 in Blood Pressure Diastolic 96 mm Hg Blood Pressure Systolic 157 mm Hg Temperature 97.6 F Cardiac Monitoring Heart Rate 99 /min Results No Known Results Summary Purpose [employer]ClinicalWorks Submission
--- OUTSIDE RECORDS SUMMARY | 2017-03-11 23:59 | XMS REPORT ---
Author Maco Simpson [facility] [employer] Address Unknown Phone Unavailable Care Team Providers Care Supervisor Alum Plant Name Role Phone Maco Mason CP Unavailable [...]
--- OUTSIDE RECORDS SUMMARY | 2017-03-11 23:59 | XMS REPORT ---
Author Author Katrin Olvera [employer] Address Unknown Phone Unavailable Care Team Providers Care Assistant Manager Retail Name Role Phone Katrin Olvera Unavailable Allergies, Adverse Reactions, Alerts Substance Reaction Event Type Reglan Info Not Available Drug Allergy Prochlorperazine Info Not Available Drug Allergy Morphine Sulfate nausea Drug Allergy Inapsine Info Not Available Drug Allergy seasonal Info Not Available Non Drug Allergy Problems Problem Type Condition Code Onset Dates Condition Status Problem Headache 784.0 Active Problem Sprain and strain of other specified sites of knee and leg 844.8 Active Problem Acute frontal sinusitis 461.1 Active Problem Giant cell arteritis 446.5 Active Problem Localized osteoarthrosis not specified whether primary or secondary, lower leg 715.36 Active Problem Malignant neoplasm of prostate 185 Active Problem Encounter for removal of sutures V58.32 Active Problem Acute sinusitis, unspecified 461.9 Active Problem Spasm of muscle 728.85 Active Problem Localized superficial swelling, mass, or lump 782.2 Active Problem Acute bronchitis 466.0 Active Problem Localized swelling, mass and lump, trunk R22.2 Active Problem Pain in soft tissues of limb 729.5 Active Problem Polydipsia R63.1 Active Problem Cellulitis and abscess of mouth K12.2 Active Problem Other polyuria R35.8 Active Problem Enlarged prostate without lower urinary tract symptoms N40.0 Active Problem Essential (primary) hypertension I10 Active Problem Allergic rhinitis, cause unspecified 477.9 Active Problem Swelling, mass, or lump in head and neck 784.2 Active Problem Essential hypertension, benign 401.1 Active Problem Localized swelling, mass and lump, right upper limb R22.31 Active Problem Pain in joint, lower leg 719.46 Active Problem Degeneration of lumbar or lumbosacral intervertebral disc 722.52 Active Problem Type 2 diabetes mellitus with hyperglycemia E11.65 Active Problem Obesity, unspecified 278.00 Active Problem Impaired fasting glucose R73.01 Active Assessment Localized swelling, mass and lump, right upper limb R22.31 Active Problem Other obesity E66.8 Active Problem 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 Active Problem Unspecified pre-operative examination V72.84 Active Problem Routine general medical examination at health care facility V70.0 Active Problem Chronic pancreatitis 577.1 Active Problem Abnormal weight gain 783.1 Active Problem Hypertrophy (benign) of prostate without urinary obstruction and other lower urinary tract symptoms [LUTS] 600.00 Oct 13, 2010 Active Problem Lumbago 724.2 Active Problem Nonspecific abnormal electrocardiogram (ECG) (EKG) 794.31 Active Problem Lipoma of other skin and subcutaneous tissue 214.1 Active Problem Acute maxillary sinusitis 461.0 Active Problem Other acute pain 338.19 Active Problem 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 Active Problem 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 Problem hypokalemia 276.8 Active Problem Pain in joint, shoulder region 719.41 Active Medications Medication Code System Code Instructions Start Date End Date Status Dosage [place] [facility] [address]-11 10-325 MG Orally every 6 hrs 1 tablet as needed Tradjenta [facility] [address]-47 5 MG Orally Once a day Aug 05, 2015 1 tablet Gabapentin [facility] [address]-33 300 MG Orally BID May 01, 2015 1 capsule Potassium Chloride [facility] [address]-29 20 MEQ Orally Three times a day Dec 08, 2015 1 capsule ProAir HFA [facility] [address]-83 108 (90 Base) MCG/ACT Inhalation every 4 hrs PRN wheezing January 05, 2013 2 puffs as needed Lancets Misc. NDC 0 1 test twice daily Aug 05, 2015 as directed Zometa [facility] [address]-79 4 MG/5ML Intravenous as directed Calcium [facility] [address]-99 400-133.3 Orally 1 PO daily Hydrochlorothiazide [facility] [address]-72 25 MG Orally Once a day January 05, 2013 1 tablet Glucose Blood NDC 0 1 SQ BID prn Aug 01, 2015 as directed Casodex [facility] [address]-29 50 MG Orally Once a day 1 tablet Glucose Blood NDC 0 1 In Vitro twice daily Aug 08, 2015 as directed Metformin HCl [facility] [address]-62 500 MG Orally Twice a day Aug 01, 2015 1 tab Flonase NDC [address]-33 50 MCG/ACT Nasally bid Sep 07, 2014 1 spray in each nostril Mucinex [facility] [address]-63 600 MG Orally every 12 hrs, take with plenty of water January 29, 2014 1 tablet as needed Ultra-Thin II Mini Pen Needle [facility] [address] 31G X 5 MM SQ QHS Aug 05, 2015 as directed Lupron Depot [facility] [address]-40 45 MG Intramuscular as directed Amlodipine Besylate [facility] [address]-89 10 MG Orally Once a day take one tablet by mouth daily Clonidine HCl [facility] 12570976093 0.1 MG Orally Once a day 1 tablet Insulin Detemir [facility] [address]-02 100 UNIT/ML Subcutaneous QHS Aug 05, 2015 20 units Procedures Procedure Coding System Code Date Office Visit, Est Pt., Level 3 CPT-4 56122 Oct 01, 2015 Vital Signs Date/Time: Oct 01, 2015 BMI 37.30 Index Weight 260 lb lbs Height 70 in Blood Pressure Diastolic 91 mm Hg Blood Pressure Systolic 142 mm Hg Temperature 97.1 F Cardiac Monitoring Heart Rate 77 /min Results No Known Results Summary Purpose eClinicalWorks Submission
--- OUTSIDE RECORDS SUMMARY | 2017-03-11 23:59 | XMS REPORT ---
Author Author Katrin Olvera [employer] Address Unknown Phone Unavailable Care Team Providers Care Ceramic Sprayer Name Role Phone Katrin Olvera Unavailable Allergies, Adverse Reactions, Alerts Substance Reaction Event Type Reglan Info Not Available Drug Allergy Prochlorperazine Info Not Available Drug Allergy Morphine Sulfate nausea Drug Allergy Inapsine Info Not Available Drug Allergy seasonal Info Not Available Non Drug Allergy Problems Problem Type Condition Code Onset Dates Condition Status Problem Sprain and strain of other specified sites of knee and leg 844.8 Active Problem Chronic pancreatitis 577.1 Active Problem Giant cell arteritis 446.5 Active Problem Headache 784.0 Active Assessment Routine general medical examination at health care facility V70.0 Active Problem Acute frontal sinusitis 461.1 Active Assessment Type 2 diabetes mellitus with hyperglycemia E11.65 Active Problem Localized osteoarthrosis not specified whether primary or secondary, lower leg 715.36 Active Assessment Impaired fasting glucose R73.01 Active Problem Malignant neoplasm of prostate 185 Active Problem Encounter for removal of sutures V58.32 Active Problem Acute sinusitis, unspecified 461.9 Active Problem 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 Problem Spasm of muscle 728.85 Active Problem Localized superficial swelling, mass, or lump 782.2 Active Problem Acute bronchitis 466.0 Active Problem Localized swelling, mass and lump, trunk R22.2 Active Problem Other polyuria R35.8 Active Problem Polydipsia R63.1 Active Problem Essential (primary) hypertension I10 Active Problem Other obesity E66.8 Active Problem Swelling, mass, or lump in head and neck 784.2 Active Problem Pain in joint, lower leg 719.46 Active Problem Degeneration of lumbar or lumbosacral intervertebral disc 722.52 Active Problem Enlarged prostate without lower urinary tract symptoms N40.0 Active Problem Pain in soft tissues of limb 729.5 Active Problem Obesity, unspecified 278.00 Active Problem Impaired fasting glucose R73.01 Active Assessment Essential (primary) hypertension I10 Active Problem Cellulitis and abscess of mouth K12.2 Active Assessment Enlarged prostate without lower urinary tract symptoms N40.0 Active Problem 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 Active Assessment Other obesity E66.8 Active Problem Type 2 diabetes mellitus with hyperglycemia E11.65 Active Problem Nonspecific abnormal electrocardiogram (ECG) (EKG) 794.31 Active Problem Lipoma of other skin and subcutaneous tissue 214.1 Active Problem Unspecified pre-operative examination V72.84 Active Problem Routine general medical examination at health care facility V70.0 Active Problem 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 Active Problem Allergic rhinitis, cause unspecified 477.9 Active Problem Hypertrophy (benign) of prostate without urinary obstruction and other lower urinary tract symptoms [LUTS] 600.00 Oct 13, 2010 Active Problem Lumbago 724.2 Active Problem Essential hypertension, benign 401.1 Active Problem Pain in joint, shoulder region 719.41 Active Problem Acute maxillary sinusitis 461.0 Active Problem Other acute pain 338.19 Active Problem Abnormal weight gain 783.1 Active Problem hypokalemia 276.8 Active Medications Medication Code System Code Instructions Start Date End Date Status Dosage [place] [facility] [address]-91 10-325 MG Orally every 6 hrs 1 tablet as needed Zometa [facility] [address]-64 4 MG/5ML Intravenous as directed Mucinex [facility] [address]-83 600 MG Orally every 12 hrs, take with plenty of water January 29, 2014 1 tablet as needed Clonidine HCl [facility] 29550467233 0.1 MG Orally Once a day 1 tablet Lancets Misc. [facility] 0 1 test twice daily Aug 05, 2015 as directed Potassium Chloride [facility] [address]-80 20 MEQ Orally Three times a day Dec 08, 2015 1 capsule Casodex [facility] [address]-43 50 MG Orally Once a day 1 tablet Ultra-Thin II Mini Pen Needle [facility] [address] 31G X 5 MM SQ QHS Aug 05, 2015 as directed Tradjenta [facility] [address]-90 5 MG Orally Once a day Aug 05, 2015 1 tablet Glucose Blood [place] 0 1 In Vitro twice daily Aug 08, 2015 as directed ProAir HFA [facility] [address]-97 108 (90 Base) MCG/ACT Inhalation every 4 hrs PRN wheezing January 05, 2013 2 puffs as needed Metformin HCl [facility] [address]-36 500 MG Orally Twice a day Aug 01, 2015 1 tab Insulin Detemir [facility] [address]-88 100 UNIT/ML Subcutaneous QHS Aug 05, 2015 20 units Lupron Depot [facility] [address]-84 45 MG Intramuscular as directed Calcium [facility] [address]-14 400-133.3 Orally 1 PO daily Amlodipine Besylate [facility] [address]-67 10 MG Orally Once a day take one tablet by mouth daily Glucose Blood [place] 0 1 SQ BID prn Aug 01, 2015 as directed Flonase [facility] [address]-72 50 MCG/ACT Nasally bid Sep 07, 2014 1 spray in each nostril Gabapentin [facility] [address]-08 300 MG Orally BID May 01, 2015 1 capsule Hydrochlorothiazide [facility] [address]-62 25 MG Orally Once a day January 05, 2013 1 tablet Procedures Procedure Coding System Code Date Office Visit, Est Pt., Level 3 CPT-4 69593 Sep 09, 2015 URINALYSIS, AUTO, W/O SCOPE CPT-4 65979 Sep 09, 2015 Vital Signs Date/Time: Sep 09, 2015 BMI 36.73 Index Weight 256lb lbs Height 70 in Blood Pressure Diastolic 95 mm Hg Blood Pressure Systolic 149 mm Hg Temperature 97.6 F Cardiac Monitoring Heart Rate 77 /min Results Name Result Date Reference Range Unit Abnormality Flag Urinalysis (UA) (GM) Summary Purpose eClinicalWorks Submission
--- OUTSIDE RECORDS SUMMARY | 2017-03-11 23:59 | XMS REPORT | Referral Summary ---
Author Organization Unknown Address Unknown Phone Unavailable Care Team Providers Care Stove Mechanic Name Role Phone [facility] Primary Care Physician Unavailable Encounter [facility] MYRICK [id number] Date(s): 01/05/15 - 01/05/15 [facility] [address] [place] [address] Discharge Disposition: Eloped Attending Physician: Petey Vasquez MD Admitting Physician: Petey Vasquez MD Vital Signs Most recent to 1 oldest [Reference Range]: Temperature Oral 36.7 degC [35.8-37.3 degC] (01/05/15 9:47 PM) Peripheral Pulse 77 bpm Rate [60-100 bpm] (01/05/15 9:47 PM) Respiratory Rate 14 br/min [14-20 br/min] (01/05/15 9:47 PM) Blood Pressure 135/91 mmHg [90-140/60-90 mmHg] (01/05/15 9:47 PM) Most recent to 1 oldest [Reference Range]: SpO2 95 % (01/05/15 9:47 PM) Problem List Condition Effective Dates Status [...]
--- OUTSIDE RECORDS SUMMARY | 2017-03-11 23:59 | XMS REPORT ---
Author Author Dean Gannon Organization [employer] Address Unknown Phone Unavailable Care Team Providers Care Tankage Grinder Operator Name Role Phone Dean Gannon CP [...] Instructions Start Date End Date Status Dosage Hydrochlorothiazide [facility] [address]-21 25 MG Orally Once a day January 05, 2013 1 tablet Results No Known Results Summary Purpose [employer]ClinicalWorks Submission
--- OUTSIDE RECORDS SUMMARY | 2017-03-11 23:59 | XMS REPORT ---
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 Active 32632128503083634 Problem Chronic pancreatitis 577.1 Active 826702850 Problem Giant cell arteritis 446.5 Active 037964792 Problem Localized osteoarthrosis not specified whether primary or secondary, lower leg 715.36 Active 47117713 Problem Pain in left shoulder M25.512 Active 548209173 Problem Malignant neoplasm of prostate 185 Active 856725123 Problem Presbyopia H52.4 Active 86824644 Problem Spasm of muscle 728.85 Active 49837925 Problem Regular astigmatism, bilateral H52.223 Active 81995036 Problem Type 2 diabetes mellitus with hyperglycemia E11.65 Active 976035422572013 Problem Age-related nuclear cataract, bilateral H25.13 Active 464166513 Problem Wedge compression fracture of unspecified lumbar vertebra, subsequent encounter for fracture with nonunion S32.000K Active 830630891 Problem Chronic pain syndrome G89.4 Active 732541774 Problem Lipoma of other skin and subcutaneous tissue 214.1 Active 453309946 Problem Allergic rhinitis, cause unspecified 477.9 Active 13072105 Problem Pain in soft tissues of limb 729.5 Active 75148738 Problem 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 087336933 Problem Pain in right knee M25.561 Active 500209620927368 Problem Essential hypertension, benign 401.1 Active 3981450 Problem Chronic kidney disease, stage 1 N18.1 Active 396470655 Problem 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 Problem Localized superficial swelling, mass, or lump 782.2 Active 764539955 Problem Pain in joint, shoulder region 719.41 Active 520220847 Problem Other acute pain 338.19 Active 120557000 Problem Essential (primary) hypertension I10 Active 39215414 Problem Pain in right wrist M25.531 Active 60700892 Problem 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 Active Problem Other obesity E66.8 Active 163091981 ALLERGIES Unknown Allergies SOCIAL HISTORY No smoking Hx information available PLAN OF CARE VITAL SIGNS MEDICATIONS Medication Instructions Dosage Frequency Start Date End Date Duration Status Metformin HCl 500 MG Orally Twice a day 1 tab 12 15 Jul, 2015 90 days Active RESULTS No Results PROCEDURES No Known procedures IMMUNIZATIONS No Known Immunizations
--- OUTSIDE RECORDS SUMMARY | 2017-03-11 23:59 | XMS REPORT ---
Author Author Dean Gannon Organization [employer] Address Unknown Phone Unavailable Care Team Providers Care Travel Assistant Name Role Phone Dean Gannon CP Unavailable [...] Date End Date Status Dosage ProAir HFA [facility] [address]-62 108 (90 Base) MCG/ACT Inhalation every 4 hrs PRN wheezing January 05, 2013 2 puffs as needed Results No Known Results Summary Purpose [employer] Submission
--- OUTSIDE RECORDS SUMMARY | 2017-03-11 23:59 | XMS REPORT ---
Author Author Maco Mason [facility] Address [address] 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 Active 10341641035004671 Problem Chronic pancreatitis 577.1 Active 873182067 Problem Giant cell arteritis 446.5 Active 584195309 Problem Localized osteoarthrosis not specified whether primary or secondary, lower leg 715.36 Active 85939826 Problem Pain in left shoulder M25.512 Active 980839239 Problem Malignant neoplasm of prostate 185 Active 631867646 Problem Presbyopia H52.4 Active 99469399 Problem Spasm of muscle 728.85 Active 77647650 Problem Regular astigmatism, bilateral H52.223 Active 79833594 Problem Type 2 diabetes mellitus with hyperglycemia E11.65 Active 960609544495660 Problem Age-related nuclear cataract, bilateral H25.13 Active 168684717 Problem Wedge compression fracture of unspecified lumbar vertebra, subsequent encounter for fracture with nonunion S32.000K Active 438177646 Problem Chronic pain syndrome G89.4 Active 529278316 Problem Lipoma of other skin and subcutaneous tissue 214.1 Active 612259742 Problem Allergic rhinitis, cause unspecified 477.9 Active 28243113 Problem Pain in soft tissues of limb 729.5 Active 03822697 Problem 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 984699414 Problem Pain in right knee M25.561 Active 509324348116244 Problem Essential hypertension, benign 401.1 Active 3336317 Problem Chronic kidney disease, stage 1 N18.1 Active 955425689 Problem 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 Problem Localized superficial swelling, mass, or lump 782.2 Active 531837203 Problem Pain in joint, shoulder region 719.41 Active 817227904 Problem Other acute pain 338.19 Active 270202090 Problem Essential (primary) hypertension I10 Active 36593044 Problem Pain in right wrist M25.531 Active 97146173 Problem 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
--- OUTSIDE RECORDS SUMMARY | 2017-03-11 23:59 | XMS REPORT ---
Author Author Dean Gannon Organization [employer] Address Unknown Phone Unavailable Care Team Providers Care Traveling Clerk Name Role Phone Dean Gannon CP Unavailable [...]
--- OUTSIDE RECORDS SUMMARY | 2017-03-11 23:59 | XMS REPORT ---
Author Author Ken Howe Organization [employer] Address Unknown Phone Unavailable Care Team Providers Care Fugitive Investigator Name Role Phone Ken Howe CP Unavailable Allergies No Known Allergies Problems No Known Problems Medications No Known Medications Results No Known Results Summary Purpose [employer] Submission
--- OUTSIDE RECORDS SUMMARY | 2017-03-12 | XMS REPORT ---
Author Author Dean Gannon Organization [employer] Address Unknown Phone Unavailable Care Team Providers Care Document Specialist Name Role Phone Dean Gannon Unavailable Allergies No Known Allergies Problems Problem [...] Date End Date Status Dosage Levemir FlexTouch [facility] [address]-78 100 UNIT/ML Subcutaneous QHS March 02, 2016 20 units Results No Known Results Summary Purpose [employer] Submission
--- OUTSIDE RECORDS SUMMARY | 2017-03-12 | XMS REPORT | Referral Summary ---
Author Author [facility] Organization [facility] Address Unknown Phone Unavailable Care Team Providers Care Echocardiograph Tech Name Role Phone [facility] Primary Care Physician Unavailable Encounter [facility] [id number] Date(s): 01/09/16 - 01/09/16 [facility] [address] [place] [address] Discharge Diagnosis: Post-op pain Discharge Disposition: 01-Home or Self Care Attending Physician: Alejandro Pena MD Admitting Physician: Alejandro Pena MD Vital Signs Most recent to 1 oldest [Reference Range]: Temperature Oral 36.6 degC [35.8-37.3 degC] (01/09/16 6:39 AM) Peripheral Pulse 80 bpm Rate [60-100 bpm] (01/09/16 7:44 AM) Heart Rate Monitored 78 bpm [60-100 bpm] (01/09/16 8:43 AM) Respiratory Rate 20 br/min [14-20 br/min] (01/09/16 8:43 AM) Blood Pressure 143/89 mmHg [90-140/60-90 mmHg] *HI* (01/09/16 8:43 AM) Mean Arterial 105 mmHg Pressure, Cuff (01/09/16 8:28 AM) SpO2 95 % (01/09/16 8:43 AM) Problem List Condition Effective Dates Status [...] 0 Refill(s) Start Date: 05/16/14 Status: Ordered Mcdonald 10 mg-325 mg oral tablet tabs, Oral, [...]
--- OUTSIDE RECORDS SUMMARY | 2017-03-12 | XMS REPORT | Referral Summary ---
Author Author [facility] Organization [facility] Address Unknown Phone Unavailable Care Team Providers Care Service Officer Name Role Phone [facility] Primary Care Physician Unavailable Encounter [facility] [id number] Date(s): 05/10/16 - 05/10/16 [facility] [address] [place] [address] Discharge Diagnosis: Nodule of neck Discharge Diagnosis: Headache Discharge Disposition: 01-Home or Self Care Attending Physician: Alejandro Pena MD Admitting Physician: Alejandro Pena MD Vital Signs Most recent to 1 oldest [Reference Range]: Temperature Oral 36.7 degC [35.8-37.3 degC] (05/10/16 9:26 AM) Peripheral Pulse 87 bpm Rate [60-100 bpm] (05/10/16 1:26 PM) Respiratory Rate 18 br/min [14-20 br/min] (05/10/16 1:26 PM) Blood Pressure 151/82 mmHg [90-140/60-90 mmHg] *HI* (05/10/16 1:26 PM) SpO2 96 % (05/10/16 1:26 PM) Problem List Condition Effective Dates Status Health Status Informant Cancer(Confirmed) Active patient Hypertension(Confirm Active patient ed) Fibrosarcoma(Confirm Active patient ed) Prostate Active patient cancer(Confirmed) Mass of right Active wrist(Confirmed) Allergies, Adverse Reactions, Alerts Substance Reaction Severity Status Compazine Jittery Mild Active Demerol HCl nausea Active Flexeril Hives Active Inapsine Jittery Mild Active Reglan Jittery Mild Active Medications calcium [...] 0 Refill(s) Start Date: 05/16/14 Status: Ordered Savannah 10 mg-325 mg oral tablet tabs, Oral, [...] Refill(s) Start Date: 11/29/14 Status: Ordered Results Chemistry Most recent to 1 oldest [Reference Range]: Sodium Lvl [136-144 134 mEq/L mEq/L] *LOW* (05/10/16 10:00 AM) Potassium Lvl 2.6 mEq/L [3.6-5.1 mEq/L] *LOW* (05/10/16 10:00 AM) Chloride [99-109 100 mEq/L mEq/L] (05/10/16 10:00 AM) CO2 [22-32 mEq/L] 26 mEq/L (05/10/16 10:00 AM) AGAP [3-20] 8 (05/10/16 10:00 AM) BUN [4-20 mg/dL] 6 mg/dL (05/10/16 10:00 AM) Glucose Lvl [70-100 214 mg/dL mg/dL] *HI* (05/10/16 10:00 AM) Creatinine Lvl 0.74 mg/dL [0.64-1.27 mg/dL] (05/10/16 10:00 AM) eGFR [>60] >60 1 (05/10/16 10:00 AM) Calcium Lvl 8.6 mg/dL [8.6-10.0 mg/dL] (05/10/16 10:00 AM) 1Result Comment: Multiply eGFR results by 1.21 for race. Immunizations Vaccine Date Refusal Reason tetanus-diphth toxoids (Td) adult/adol 07/02/04 Procedures Procedure Date Related Diagnosis Body Site Craniotomy Insertion of Port-a-cath Shoulder repair Total knee replacement1 1right total knee replacement Social History Social History Type Response Smoking Status Never smoker Assessment and Plan No data available for this section
--- OUTSIDE RECORDS SUMMARY | 2017-03-12 | XMS REPORT ---
Author Christi Wren [facility] [employer] Address Unknown Phone Unavailable Care Team Providers Care Hard Metals Hand Engraver Name Role Phone Christi Fournier CP Unavailable Allergies, Adverse Reactions, Alerts Substance Reaction Event Type Reglan Info Not Available Drug Allergy Prochlorperazine Info Not Available Drug Allergy Morphine Sulfate nausea Drug Allergy Inapsine Info Not Available Drug Allergy seasonal Info Not Available Non Drug Allergy Problems Problem Type Condition ICD-9 Code Onset Dates Condition Status Problem Chronic pancreatitis 577.1 Active Problem Headache 784.0 Active Problem Sprain and strain of other specified sites of knee and leg 844.8 Active Problem Acute sinusitis, unspecified 461.9 Active Problem Encounter for removal of sutures V58.32 Active Problem Spasm of muscle 728.85 Active Problem Acute frontal sinusitis 461.1 Active Problem Giant cell arteritis 446.5 Active Problem Malignant neoplasm of prostate 185 Active Problem Localized osteoarthrosis not specified whether primary or secondary, lower leg 715.36 Active Problem Obesity, unspecified 278.00 Active Problem Degeneration of lumbar or lumbosacral intervertebral disc 722.52 Active Assessment Spasm of muscle 728.85 Active Assessment Essential hypertension, benign 401.1 Active Problem 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 Active Problem Hypertrophy (benign) of prostate without urinary obstruction and other lower urinary tract symptoms [LUTS] 600.00 Oct 13, 2010 Active Problem Essential hypertension, benign 401.1 Active Problem Nonspecific abnormal electrocardiogram (ECG) (EKG) 794.31 Active Problem Acute maxillary sinusitis 461.0 Active Problem Unspecified pre-operative examination V72.84 Active Medications Medication Code System Code Instructions Start Date End Date Status Dosage Casodex [facility] [address]-85 50 MG Orally Once a day Active 1 tablet Lupron Depot [facility] [address]-14 45 MG Intramuscular Active as directed Amlodipine Besylate [facility] [address]-91 10 mg Orally Once a day Active take one tablet by mouth daily Hydrochlorothiazide [facility] [address]-57 25 MG Orally Once a day January 05, 2013 Active 1 tablet Soma [facility] [address]-07 350 MG Orally every 8 hours May 29, 2013 Jun 28, 2013 Active 1 tablet as needed ProAir HFA [facility] [address]-30 108 (90 Base) MCG/ACT Inhalation every 4 hrs PRN wheezing January 05, 2013 Active 2 puffs as needed Percocet [facility] [address]-54 10-650 MG ELAMIN Orally every 6 hrs Active 1 tablet as needed Calcium [facility] [address]33 400-133.3 Orally Active 1 PO daily Procedures Procedure Coding System Code Date Office Visit, Est Pt., Level 3 CPT-4 35670 May 29, 2013 Vital Signs Date/Time: May 29, 2013 Weight 258.9 lbs Height 70 inches Blood Pressure Diastolic 98 mm Hg Blood Pressure Systolic 156 mm Hg Temperature 98.0 F Results No Known Results Summary Purpose [employer]ClinicalWorks Submission
--- OUTSIDE RECORDS SUMMARY | 2017-03-12 | XMS REPORT ---
Author Author Maco Mason Organization [employer] Address Unknown Phone Unavailable Care Team Providers Care Cryptographic Technician Name Role Phone Maco Mason CP Unavailable Allergies, Adverse Reactions, Alerts Substance Reaction Event Type Reglan Info Not Available Drug Allergy Prochlorperazine Info Not Available Drug Allergy Morphine Sulfate nausea Drug Allergy Inapsine Info Not Available Drug Allergy seasonal Info Not Available Non Drug Allergy Problems Problem Type Condition ICD-9 Code Onset Dates Condition Status Assessment Rash and other nonspecific skin eruption 782.1 Active Problem Obesity, unspecified 278.00 Active Problem [...] Start Date End Date Status Dosage Calcium [facility] [address]-67 400-133.3 Orally 1 PO daily Casodex [facility] [address]-82 50 MG Orally Once a day 1 tablet Moran [facility] [address]-65 10-325 MG Orally every 6 hrs 1 tablet as needed Cetirizine HCl [facility] [address]-60 10 MG Orally qhs Sep 07, 2014 March 06, 2015 1 tablet Lupron Depot [facility] [address]-19 45 MG Intramuscular as directed Amlodipine Besylate [facility] [address]-19 10 MG Orally Once a day take one tablet by mouth daily Potassium Chloride [facility] [address]-37 20 MEQ Orally Three times a day 1 capsule Zometa [facility] [address]-90 4 MG/5ML Intravenous as directed ProAir HFA [facility] [address]-67 108 (90 Base) MCG/ACT Inhalation every 4 hrs PRN wheezing January 05, 2013 2 puffs as needed Hydrochlorothiazide [facility] [address]-45 25 MG Orally Once a day January 05, 2013 1 tablet Procedures Procedure Coding System Code Date Office Visit, Est Pt., Level 3 CPT-4 04632 January 10, 2015 Vital Signs Date/Time: January 10, 2015 BMI 38.16 Index Weight 266. lbs Height 70 in Blood Pressure Diastolic 89 mm Hg Blood Pressure Systolic 142 mm Hg Temperature 98.0 F Cardiac Monitoring Heart Rate 80 /min Results No Known Results Summary Purpose [employer]Works Submission
--- OUTSIDE RECORDS SUMMARY | 2017-03-12 | XMS REPORT ---
Author Author Maco Mason [facility] [employer] Address Unknown Phone Unavailable Care Team Providers Care Publications Distribution Clerk Name Role Phone Maco Mason Unavailable Allergies, Adverse Reactions, Alerts Substance Reaction Event Type Reglan Info Not Available Drug Allergy Prochlorperazine Info Not Available Drug Allergy Morphine Sulfate nausea Drug Allergy Inapsine Info Not Available Drug Allergy seasonal Info Not Available Non Drug Allergy Problems Problem Type Condition Code Onset Dates Condition Status Assessment Essential (primary) hypertension I10 Active Assessment Headache R51 Active Assessment Nausea R11.0 Active Assessment Chronic pain syndrome G89.4 Active Assessment Hypokalemia E87.6 Active Problem Degeneration of lumbar or lumbosacral [...] Date End Date Status Dosage Amlodipine Besylate [facility] [address]-19 10 MG Orally Once a day take one tablet by mouth daily Levemir FlexTouch [facility] [address]-67 100 UNIT/ML Subcutaneous QHS March 02, 2016 20 units Lancets [facility] 0 1 test twice daily Aug 05, 2015 as directed ProAir HFA [facility] [address]-17 108 (90 Base) MCG/ACT Inhalation every 4 hrs PRN wheezing January 05, 2013 2 puffs as needed Phenergan [facility] [address]-22 12.5 MG Orally every 6 hrs Jul 27, 2016 1 tablet as needed Flonase [facility] [address]-88 50 MCG/ACT Nasally bid Sep 07, 2014 1 spray in each nostril Clonidine HCl [facility] 80346439634 0.1 MG Orally Once a day 1 tablet True Metrix Blood Glucose Test [facility] [address] 1 In Vitro twice a day Jun 16, 2016 as directed OxyContin [facility] [address]-00 20 MG Orally every 12 hrs 1 tablet Ultra-Thin II Mini Pen Needle [facility] [address]185 31G X 5 MM SQ QHS Aug 05, 2015 as directed Xgeva [facility] [address]-67 120 MG/1.7ML Subcutaneous every three months 1.[address] [facility] [address]-45 50 MG Orally Once a day 1 tablet [place] [facility] [address]-91 10-325 MG Orally every 6 hrs 1 tablet as needed Calcium [facility] [address]-22 400-133.3 Orally 1 PO daily True Metrix Meter [facility] [address]33 w/Device in vitro check BID Jun 18, 2016 as directed Glucose Blood [facility] [address]-54 1 In Vitro test BID April 23, 2016 as directed Casodex [facility] [address]-55 50 MG Orally Once a day [address] [facility] [address]-54 600 MG Orally every 12 hrs, take with plenty of water January 29, 2014 1 tablet as needed Lisinopril [facility] [address]-89 40 MG Orally Once a day December 30, 2015 1 tablet Metformin HCl [facility] [address]-01 500 MG Orally Twice a day Aug 01, [address] [facility] [address]-34 300 MG Orally BID May 01, 2015 1 capsule Lupron Depot [facility] [address]-64 45 MG Intramuscular as directed Procedures Procedure Coding System Code Date Office Visit, Est Pt., Level 3 CPT-4 22038 Jul 27, 2016 COMPREHEN METABOLIC PANEL CPT-4 92783 Jul 27, 2016 Vital Signs Date/Time: Jul 27, 2016 BMI 36.32 Index Weight 253 lb 2 oz lbs Height 70 in Blood Pressure Diastolic 107 mm Hg Blood Pressure Systolic 153 mm Hg Temperature 98.3 F Cardiac Monitoring Heart Rate 85 /min Results No Known Results Summary Purpose eClinicalWorks Submission
--- OUTSIDE RECORDS SUMMARY | 2017-03-12 | XMS REPORT ---
Author Author Katrin Olvera eClinical[employer] Address Unknown Phone Unavailable Care Team Providers Care Pharmacy Retail Support Specialist Name Role Phone Katrin Olvera Unavailable Allergies, Adverse Reactions, Alerts Substance Reaction Event Type Reglan Info Not Available Drug Allergy Prochlorperazine Info Not Available Drug Allergy Morphine Sulfate nausea Drug Allergy Inapsine Info Not Available Drug Allergy seasonal Info Not Available Non Drug Allergy Problems Problem Type Condition ICD-9 Code Onset Dates Condition Status Assessment Other acute pain 338.19 Active Assessment Pain in joint, shoulder region 719.41 Active Problem Obesity, unspecified 278.00 Active Problem Degeneration of lumbar or lumbosacral intervertebral disc 722.52 Active Problem Essential hypertension, benign 401.1 Active Problem Acute maxillary sinusitis 461.0 Active Problem 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 Active Problem Acute bronchitis 466.0 Active Problem Hypertrophy (benign) of prostate without urinary obstruction and other lower urinary tract symptoms [LUTS] 600.00 Oct 13, 2010 Active Problem Pain in soft tissues of limb 729.5 Active Problem Nonspecific abnormal electrocardiogram (ECG) (EKG) 794.31 Active Problem Pain in joint, lower leg 719.46 Active Problem Allergic rhinitis, cause unspecified 477.9 Active Problem Swelling, mass, or lump in head and neck 784.2 Active Problem Pain in joint, shoulder region 719.41 Active Problem hypokalemia 276.8 Active Problem Sprain and strain of other specified sites of knee and leg 844.8 Active Problem Chronic pancreatitis 577.1 Active Problem Other acute pain 338.19 Active Problem Unspecified pre-operative examination V72.84 Active Problem Lipoma of other skin and subcutaneous tissue 214.1 Active Problem Lumbago 724.2 Active Problem Abnormal weight gain 783.1 Active Problem Routine general medical examination at health care facility V70.0 Active Problem Acute frontal sinusitis 461.1 Active Problem Localized osteoarthrosis not specified whether primary or secondary, lower leg 715.36 Active Problem Headache 784.0 Active Problem Giant cell arteritis 446.5 Active Problem Acute sinusitis, unspecified 461.9 Active Problem Spasm of muscle 728.85 Active Problem Malignant neoplasm of prostate 185 Active Problem Encounter for removal of sutures V58.32 Active Medications Medication Code System Code Instructions Start Date End Date Status Dosage ProAir HFA [facility] [address]-77 108 (90 Base) MCG/ACT Inhalation every 4 hrs PRN wheezing January 05, 2013 2 puffs as needed Gabapentin [facility] [address]-25 300 MG Orally BID May 01, 2015 1 capsule [place] [facility] [address]-06 10-325 MG Orally every 6 hrs 1 tablet as needed Calcium [facility] [address]-52 400-133.3 Orally 1 PO daily Zometa [facility] [address]-06 4 MG/5ML Intravenous as directed Clonidine HCl [facility] [address]-81 0.1 MG Orally Once a day May 01, 2015 1 tablet Potassium Chloride [facility] [address]-80 20 MEQ Orally Three times a day 1 capsule Casodex [facility] [address]-32 50 MG Orally Once a day 1 tablet Lupron Depot [facility] [address]-17 45 MG Intramuscular as directed Hydrochlorothiazide [facility] [address]-45 25 MG Orally Once a day January 05, 2013 1 tablet Amoxicillin [facility] [address]-27 500 MG Orally every 8hrs May 07, 2015 May 17, 2015 2 tablets Klor-Con M20 [facility] [address]-36 20 MEQ Orally Twice a day May 02, 2015 Jul 01, 2015 1 tablet Amlodipine Besylate [facility] [address]-13 10 MG Orally Once a day take one tablet by mouth daily Procedures Procedure Coding System Code Date Office Visit, Est Pt., Level 4 CPT-4 84096 May 13, 2015 Vital Signs Date/Time: May 13, 2015 BMI 39.51 Index Weight 275 lb 6 oz lbs Height 70 in Blood Pressure Diastolic 89 mm Hg Blood Pressure Systolic 148 mm Hg Temperature 97.4 F Cardiac Monitoring Heart Rate 97 /min Results No Known Results Summary Purpose eClinicalWorks Submission
--- OUTSIDE RECORDS SUMMARY | 2017-03-12 | XMS REPORT ---
Author Author Dean Gannon Organization [employer] Address Unknown Phone Unavailable Care Team Providers Care Rehabilitation Coordinator Name Role Phone Dean Gannon CP Unavailable [...] Date End Date Status Dosage Clonidine HCl [facility] 61559517723 0.1 MG Orally Once a day 1 tablet Results No Known Results Summary Purpose eClinicalWorks Submission
--- OUTSIDE RECORDS SUMMARY | 2017-03-12 | XMS REPORT ---
Author Author Dean Gannon Organization [employer] Address Unknown Phone Unavailable Care Team Providers Care Appointment Clerk Name Role Phone Dean Gannon Unavailable Allergies [...] Instructions Start Date End Date Status Dosage Gabapentin [facility] [address]-06 300 MG Orally BID May 01, 2015 1 capsule Results No Known Results Summary Purpose eClinicalWorks Submission
--- OUTSIDE RECORDS SUMMARY | 2017-03-12 | XMS REPORT ---
Author Author Bret Olmedo Organization [employer] Address Unknown Phone Unavailable Care Team Providers Care Maintenance Planning Clerk Name Role Phone Bret Olmedo CP Unavailable [...] Start Date End Date Status Dosage Gabapentin [facility] [address]-76 300 MG Orally BID May 01, 2015 1 capsule Results No Known Results Summary Purpose eClinicalWorks Submission
--- OUTSIDE RECORDS SUMMARY | 2017-03-12 | XMS REPORT | Referral Summary ---
Author Author [facility] Organization [facility] Address Unknown Phone Unavailable Care Team Providers Care Triple Drum Operator Name Role Phone [facility] Primary Care Physician Unavailable Encounter [facility] [id number] Date(s): 07/01/16 - 07/01/16 [facility] [address] [place] [address] Discharge Diagnosis: Headache Discharge Diagnosis: Left shoulder pain Discharge Disposition: 01-Home or Self Care Attending Physician: Evgeny Cobb MD Admitting Physician: Evgeny Cobb MD Vital Signs Most recent to 1 oldest [Reference Range]: Temperature Oral 36.8 degC [35.8-37.3 degC] (07/01/16 12:38 AM) Peripheral Pulse 80 bpm Rate [60-100 bpm] (07/01/16 6:42 AM) Heart Rate Monitored 79 bpm [60-100 bpm] (07/01/16 5:50 AM) Respiratory Rate 18 br/min [14-20 br/min] (07/01/16 6:42 AM) Blood Pressure 162/89 mmHg [90-140/60-90 mmHg] *HI* (07/01/16 6:42 AM) Mean Arterial 115 mmHg Pressure, Cuff (07/01/16 5:25 AM) SpO2 95 % (07/01/16 6:42 AM) Problem List Condition Effective Dates Status Health Status Informant Cancer(Confirmed) Active patient Hypertension(Confirm Active patient ed) Fibrosarcoma(Confirm Active patient ed) Prostate Active patient cancer(Confirmed) Mass of right Active wrist(Confirmed) Allergies, Adverse Reactions, Alerts Substance Reaction Severity Status Compazine Jittery Mild Active Compazine Spansule Active Demerol HCl nausea Active Flexeril Hives Active Inapsine Jittery Mild Active Reglan Jittery Mild Active Medications Calci-Mix [...] 0 Refill(s) Start Date: 07/01/16 Status: Ordered [place] 10 mg-325 mg oral tablet tabs, Oral, [...] Refill(s) Start Date: 11/29/14 Status: Ordered Results Hematology Most recent to 1 oldest [Reference Range]: WBC [4.8-10.8 9.3 10*3/uL 10*3/uL] (07/01/16 4:25 AM) RBC [4.60-6.20] 4.41 *LOW* (07/01/16 4:25 AM) Hgb [14.0-18.0 13.5 gm/dL gm/dL] *LOW* (07/01/16 4:25 AM) Hct [42.0-52.0 %] 37.2 % *LOW* (07/01/16 4:25 AM) MCV [82.0-99.0 fL] 84.4 fL (07/01/16 4:25 AM) MCH [27.0-32.0 pg] 30.6 pg (07/01/16 4:25 AM) MCHC [32.0-36.0 36.3 gm/dL gm/dL] *HI* (07/01/16 4:25 AM) RDW [11.5-14.5 %] 12.6 % (07/01/16 4:25 AM) Platelet [150-400 156 10*3/uL 10*3/uL] (07/01/16 4:25 AM) MPV [9.4-12.3 fL] 11.4 fL (07/01/16 4:25 AM) Immature 0.8 % Granulocytes (07/01/16 4:25 AM) [0.0-1.0 %] Neutrophils [51-75 57 % %] (07/01/16 4:25 AM) Lymphocytes [20-46 33 % %] (07/01/16 4:25 AM) Monocytes [4-11 %] 7 % (07/01/16 4:25 AM) Eosinophils [0-4 %] 2 % (07/01/16 4:25 AM) Basophils [0-2 %] 0 % (07/01/16 4:25 AM) Neutro Absolute 5.31 10*3 [1.90-7.00 10*3] (07/01/16 4:25 AM) Lymph Absolute 3.10 10*3 [0.80-3.30 10*3] (07/01/16 4:25 AM) [place] Absolute 0.67 10*3 [0.30-1.00 10*3] (07/01/16 4:25 AM) Eos Absolute 0.15 10*3 [0.00-0.50 10*3] (07/01/16 4:25 AM) Baso Absolute 0.03 10*3 [0.00-0.20 10*3] (07/01/16 4:25 AM) Nucleated RBC 0.0 /100 WBC Automated [0 /100 (07/01/16 4:25 AM) WBC] Chemistry Most recent to 1 oldest [Reference Range]: Sodium Lvl [136-144 141 mEq/L mEq/L] (07/01/16 4:25 AM) Potassium Lvl 3.3 mEq/L [3.6-5.1 mEq/L] *LOW* (07/01/16 4:25 AM) Chloride [99-109 111 mEq/L mEq/L] *HI* (07/01/16 4:25 AM) CO2 [22-32 mEq/L] 23 mEq/L (07/01/16 4:25 AM) AGAP [3-20] 7 (07/01/16 4:25 AM) BUN [4-20 mg/dL] 8 mg/dL (07/01/16 4:25 AM) Glucose Lvl [70-100 139 mg/dL mg/dL] *HI* (07/01/16 4:25 AM) Creatinine Lvl 0.69 mg/dL [0.64-1.27 mg/dL] (07/01/16 4:25 AM) eGFR [>60] >60 1 (07/01/16 4:25 AM) Calcium Lvl 9.0 mg/dL [8.6-10.0 mg/dL] (07/01/16 4:25 AM) Albumin Lvl [3.5-4.8 3.9 gm/dL gm/dL] (07/01/16 4:25 AM) Total Protein 6.9 gm/dL [6.1-7.9 gm/dL] (07/01/16 4:25 AM) Globulin [1.9-4.3 3.0 gm/dL gm/dL] (07/01/16 4:25 AM) ALT [17-63 U/L] 37 U/L (07/01/16 4:25 AM) AST [15-41 U/L] 31 U/L (07/01/16 4:25 AM) Alk Phos [26-104 88 U/L U/L] (07/01/16 4:25 AM) Bili Total [0.2-1.2 0.7 mg/dL 2 mg/dL] (07/01/16 4:25 AM) Sodium Venous 142 mEq/L [136-144 mEq/L] (07/01/16 4:23 AM) Potassium Venous 3.3 mEq/L 3 [3.6-5.1 mEq/L] *LOW* (07/01/16 4:23 AM) Calcium Ionized 1.19 mmol/L Venous [1.19-1.41 (07/01/16 4:23 AM) mmol/L] Total CO2 Venous 23 mEq/L [25-29 mEq/L] *LOW* (07/01/16 4:23 AM) HGB Venous NPT 11.9 gm/dL [14.0-16.0 gm/dL] *LOW* (07/01/16 4:23 AM) HCT Venous 35.0 % [42.0-52.0 %] *LOW* (07/01/16 4:23 AM) Glucose Venous 141 mg/dL [70-100 mg/dL] *HI* (07/01/16 4:23 AM) BUN Venous [4-20] 7 (07/01/16 4:23 AM) Creatinine Venous 0.6 mg/dL [0.7-1.2 mg/dL] *LOW* (07/01/16 4:23 AM) Venous CL [99-109 108 mEq/L mEq/L] (07/01/16 4:23 AM) Anion Gap, James 11 [3-20] (07/01/16 4:23 AM) 1Result Comment: Multiply eGFR results by 1.21 for race. 2Result Comment: Naproxen, specifically the metabolite O-desmethylnaproxen, may cause spurious elevation in Total Bilirubin levels. 3Result Comment: This test was performed on a whole blood specimen. The presence or absence of hemolysis cannot be assessed. Hemolysis can falsely elevate potassium levels. Normals are for venous specimens only. Immunizations Vaccine Date Refusal Reason tetanus-diphth toxoids (Td) adult/adol 07/02/04 Procedures Procedure Date Related Diagnosis Body Site Craniotomy Insertion of Port-a-cath Shoulder repair Total knee replacement1 1right total knee replacement Social History Social History Type Response Smoking Status Never smoker Assessment and Plan No data available for this section
--- OUTSIDE RECORDS SUMMARY | 2017-03-12 | XMS REPORT | Referral Summary ---
Author Author [facility] Organization [facility] Address Unknown Phone Unavailable Care Team Providers Care Pig Casting Machine Operator Name Role Phone [facility] Primary Care Physician Unavailable Encounter Date(s): 12/23/15 - 12/23/15 [facility] [address] [place] [address] [phone] Discharge Diagnosis: Left shoulder pain Discharge Disposition: 01-Home or Self Care Attending Physician: Goldy Small JR, MD Admitting Physician: Goldy Small JR, MD Referring Physician: Self Referred, X Vital Signs Most recent to 1 oldest [Reference Range]: Temperature Oral 36.5 degC [35.8-37.3 degC] (12/23/15 2:12 AM) Peripheral Pulse 87 bpm Rate [60-100 bpm] (12/23/15 4:44 AM) Respiratory Rate 18 br/min [14-20 br/min] (12/23/15 2:12 AM) Blood Pressure 158/100 mmHg [90-140/60-90 mmHg] *HI* (12/23/15 4:44 AM) SpO2 97 % (12/23/15 2:12 AM) Problem List Condition Effective Dates Status [...] 0 Refill(s) Start Date: 05/16/14 Status: Ordered [place] 10 mg-325 mg oral tablet tabs, Oral, [...]
--- OUTSIDE RECORDS SUMMARY | 2017-03-12 00:01 | XMS REPORT ---
Author Author Gee Jose Organization [facility] Address [address], [place] [address] Care Team Providers Care Manager Bridge Name Role Phone Jose Gee Unavailable [phone] PROBLEMS Type Condition ICD9-CM Code [id number] Code Onset Dates Condition Status SNOMED Code Problem Giant cell arteritis 446.5 Active 055397499 Problem Chronic pancreatitis 577.1 Active 798220444 Problem Malignant neoplasm of prostate 185 Active 438691172 Problem Localized osteoarthrosis not specified whether primary or secondary, lower leg 715.36 Active 91364524 Problem Spasm of muscle 728.85 Active 60820381 Problem Pain in soft tissues of limb 729.5 Active 36061367 Problem Allergic rhinitis, cause unspecified 477.9 Active 70242794 Problem Lipoma of other skin and subcutaneous tissue 214.1 Active 481459893 Problem Pain in joint, shoulder region 719.41 Active 933260722 Problem 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 809860077 Problem Other acute pain 338.19 Active 478568649 Problem Chronic kidney disease, stage 1 N18.1 Active 218621824 Problem 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 Problem Essential hypertension, benign 401.1 Active 4253908 Problem Wedge compression fracture of unspecified lumbar vertebra, subsequent encounter for fracture with nonunion S32.000K Active 267121629 Problem Chronic pain syndrome G89.4 Active 579553032 Problem Stiffness of unspecified shoulder, not elsewhere classified M25.619 Active Problem 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, 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 Active Problem Other obesity E66.8 Active 145616156 Problem 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 Active Problem Localized superficial swelling, mass, or lump 782.2 Active 993919684 Problem Localized adiposity E65 Active 975552510 Problem Essential (primary) hypertension I10 Active 02594037 Problem Personal history of malignant neoplasm of prostate Z85.46 Active 902369270 Problem Type 2 diabetes mellitus without complications E11.9 Active 590549140 Problem Degeneration of lumbar or lumbosacral intervertebral disc 722.52 Active 59931092 Problem Pain in left shoulder M25.512 Active 965387367 Problem 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 Active 74339827498886988 Problem Presbyopia H52.4 Active 21559721 Assessment Other specified joint disorders, left ankle and foot M25.872 Jan, Active Problem Essential (primary) hypertension I10 Active 15497021 Assessment Stiffness of unspecified shoulder, not elsewhere classified M25.619 Jan, Active Problem Pain in right wrist M25.531 Active 90624745 Problem Type 2 diabetes mellitus with hyperglycemia E11.65 Active 417863144882339 Assessment Neoplasm of uncertain behavior, unspecified D48.9 Jan, Active 135919832 Problem Pain in right knee M25.561 Active 141442400674253 Problem Regular astigmatism, bilateral H52.223 Active 68584949 Problem Age-related nuclear cataract, bilateral H25.13 Active 285729458 ALLERGIES Substance Reaction Event Type Date Status Reglan Unknown Drug Allergy Jan, Active Prochlorperazine Unknown Drug Allergy Jan, Active Morphine Sulfate nausea Drug Allergy Jan, Active Inapsine Unknown Drug Allergy Jan, Active Clindamycin HCl stomach upset Drug Allergy Jan, Active seasonal Unknown Non Drug Allergy Jan, Active SOCIAL HISTORY No smoking Hx information available PLAN OF CARE VITAL SIGNS Height 70 in 2017-01-28 Weight 274.8 lbs 2017-01-28 BMI 39.43 kg/m2 2017-01-28 Heart Rate 85 /min 2017-01-28 Temperature 97.6 degrees Fahrenheit 2017-01-28 Blood pressure systolic 168 mm Hg 2017-01-28 Blood pressure diastolic 92 mm Hg 2017-01-28 MEDICATIONS Medication Instructions Dosage Frequency Start Date End Date Duration Status TRUEplus Lancets 30G 0 USE TO TEST TWICE DAILY 31 Active Blood Glucose Monitor System One touch ultra mini as directed 12h 10 Oct 30 Active Gabapentin 300 MG Orally BID 1 capsule 12h 15 Apr, 2015 90 days Active Tradjenta 5 MG Orally Once a day 1 tablet 24h Nov, 90 days Active Lancets Misc. 1 as directed Jul, 30 days Active Clonidine HCl 0.1 MG Orally Once a day 1 tablet 24h 30 Active Hydrochlorothiazide 50 MG 1 TABLET ONCE A DAY ORALLY 90 90 Active Calcium 400-133.3 1 PO daily Active Metformin HCl 500 MG Orally Twice a day 1 tab 12h 90 Active Flonase 50 MCG/ACT Nasally Once a day 1 puff in each nostril 24h 30 Sep, 2016 30 day(s) Active Levemir FlexTouch 100 UNIT/ML Subcutaneous QHS 20 units February, 30 days Active Lupron Depot 45 MG as directed Active True Result Test Strips as directed Aug, dx: 250.00 Active One Touch Mini Strips Bottle of 50 strips As directed 12h Oct, 30 Active Promethazine HCl 12.5 TAKE 1 TABLET BY MOUTH EVERY 6 HOURS NEEDED 8 Active ProAir HFA 108 (90 Base) MCG/ACT Inhalation every 4 hrs PRN wheezing 2 puffs as needed 30 Active Soma 350 MG Orally Four times a day 1 tablet as needed 6h Active True Metrix Blood Glucose Test 1 Dx code E11.65 In Vitro twice a day as directed 12h May, 30 Active Ultra-Thin II Mini Pen Needle 31G X 5 MM / Dx Code: E11.65 SQ QHS as directed Jul, 90 days Active Lisinopril 40 MG Orally Once a day 1 tablet 24h Dec, 90 Active True Metrix Meter w/Device in vitro check BID as directed Jun, 30 days Active Xgeva 120 MG/1.7ML Subcutaneous every three months 1.7 ml Active Mucinex 600 MG Orally every 12 hrs, take with plenty of water 1 tablet as needed Jan, Active Lancets as directed Aug, Active Lortab 7.5-325 MG Orally every 6 hrs 1 tablet as needed 6h Active Glucose Blood 1 In Vitro test BID as directed Apr, 30 Active Amlodipine Besylate 10 MG Orally Once a day take one tablet by mouth daily 24h 90 Active Casodex 50 MG Orally Once a day 1 tablet 24h 30 day(s) Active RESULTS No Results PROCEDURES Procedure Date Ordered Related Diagnosis Body Site Office Visit, Est Pt., Level 3 January 28, 2017 IMMUNIZATIONS No Known Immunizations
--- OUTSIDE RECORDS SUMMARY | 2017-03-12 00:01 | XMS REPORT ---
Author Maco Simpson [facility] eClinicalWorks Address Unknown Phone Unavailable Care Team Providers Care Casino Runner Name Role Phone Maco Mason CP Unavailable [...]
--- OUTSIDE RECORDS SUMMARY | 2017-03-12 00:01 | XMS REPORT ---
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 Active 73576946618249459 Problem Chronic pancreatitis 577.1 Active 516595481 Problem Giant cell arteritis 446.5 Active 358959827 Problem Localized osteoarthrosis not specified whether primary or secondary, lower leg 715.36 Active 64868619 Problem Pain in left shoulder M25.512 Active 435693343 Problem Malignant neoplasm of prostate 185 Active 453661695 Problem Presbyopia H52.4 Active 96532930 Problem Spasm of muscle 728.85 Active 03590403 Problem Regular astigmatism, bilateral H52.223 Active 08721277 Problem Type 2 diabetes mellitus with hyperglycemia E11.65 Active 937078303521139 Problem Age-related nuclear cataract, bilateral H25.13 Active 960253673 Problem Wedge compression fracture of unspecified lumbar vertebra, subsequent encounter for fracture with nonunion S32.000K Active 104790514 Problem Chronic pain syndrome G89.4 Active 933039423 Problem Lipoma of other skin and subcutaneous tissue 214.1 Active 789136511 Problem Allergic rhinitis, cause unspecified 477.9 Active 80932744 Problem Pain in soft tissues of limb 729.5 Active 55641932 Problem 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 486455687 Problem Pain in right knee M25.561 Active 124316965567582 Problem Essential hypertension, benign 401.1 Active 9871900 Problem Chronic kidney disease, stage 1 N18.1 Active 483909884 Problem 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 Problem Localized superficial swelling, mass, or lump 782.2 Active 818798398 Problem Pain in joint, shoulder region 719.41 Active 923483014 Problem Other acute pain 338.19 Active 343022622 Problem Essential (primary) hypertension I10 Active 84540057 Problem Pain in right wrist M25.531 Active 60882705 Problem 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 Active Problem Other obesity E66.8 Active 440765639 ALLERGIES Unknown Allergies SOCIAL HISTORY No smoking Hx information available PLAN OF CARE VITAL SIGNS MEDICATIONS Medication Instructions Dosage Frequency Start Date End Date Duration Status Lisinopril 40 MG Orally Once a day 1 tablet 24h Dec, 90 Active RESULTS No Results PROCEDURES No Known procedures IMMUNIZATIONS No Known Immunizations
--- OUTSIDE RECORDS SUMMARY | 2017-03-12 00:01 | XMS REPORT ---
Author Author Katrin Olvera [employer] Address Unknown Phone Unavailable Care Team Providers Care Business Analyst Project Manager Name Role Phone Katrin Olvera Unavailable Allergies, Adverse Reactions, Alerts Substance Reaction Event Type Reglan Info Not Available Drug Allergy Prochlorperazine Info Not Available Drug Allergy Morphine Sulfate nausea Drug Allergy Inapsine Info Not Available Drug Allergy seasonal Info Not Available Non Drug Allergy Problems Problem Type Condition ICD-9 Code Onset Dates Condition Status Assessment Abnormal weight gain 783.1 Active Assessment Routine general medical examination at health care facility V70.0 Active Assessment Essential hypertension, benign 401.1 Active Problem Obesity, unspecified 278.00 Active Problem Degeneration of lumbar or lumbosacral intervertebral disc 722.52 Active Problem Encounter for removal of sutures V58.32 Active Problem Essential hypertension, benign 401.1 Active Problem Acute sinusitis, unspecified 461.9 Active Problem Acute maxillary sinusitis 461.0 Active Problem Spasm of muscle 728.85 Active Problem Pain in soft tissues of limb 729.5 Active Problem Acute bronchitis 466.0 Active Problem Routine general medical examination at health care facility V70.0 Active Problem Lipoma of other skin and subcutaneous tissue 214.1 Active Problem Nonspecific abnormal electrocardiogram (ECG) (EKG) 794.31 Active Problem Hypertrophy (benign) of prostate without urinary obstruction and other lower urinary tract symptoms [LUTS] 600.00 Oct 13, 2010 Active Problem Abnormal weight gain 783.1 Active Problem 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5 Active Problem Acute frontal sinusitis 461.1 Active Medications Medication Code System Code Instructions Start Date End Date Status Dosage Clonidine HCl [facility] [address]-36 0.1 MG Orally Once a day May 01, 2015 1 tablet Casodex [facility] [address]-02 50 MG Orally Once a day 1 tablet Lupron Depot [facility] [address]-19 45 MG Intramuscular as directed Gabapentin [facility] [address]-67 300 MG Orally BID May 01, 2015 1 capsule Hydrochlorothiazide [facility] [address]-32 25 MG Orally Once a day January 05, 2013 1 tablet ProAir HFA [facility] [address]-66 108 (90 Base) MCG/ACT Inhalation every 4 hrs PRN wheezing January 05, 2013 2 puffs as needed Zometa [facility] [address]-37 4 MG/5ML Intravenous as directed [place] [facility] [address]-58 10-325 MG Orally every 6 hrs 1 tablet as needed Calcium [facility] [address]-15 400-133.3 Orally 1 PO daily Potassium Chloride [facility] [address]-13 20 MEQ Orally Three times a day 1 capsule Amlodipine Besylate [facility] [address]-74 10 MG Orally Once a day take one tablet by mouth daily Procedures Procedure Coding System Code Date COMPREHEN METABOLIC PANEL CPT-4 87479 May 01, 2015 URINALYSIS, AUTO, W/O SCOPE CPT-4 40061 May 01, 2015 COMPLETE CBC W/AUTO DIFF WBC CPT-4 16053 May 01, 2015 Office Visit, Est Pt., Level 4 CPT-4 60655 May 01, 2015 Vital Signs Date/Time: May 01, 2015 BMI 39.19 Index Weight 273 lb 2 oz lbs Height 70 in Blood Pressure Diastolic 92 mm Hg Blood Pressure Systolic 137 mm Hg Temperature 97.3 F Cardiac Monitoring Heart Rate 86 /min Results No Known Results Summary Purpose eClinicalWorks Submission
--- OUTSIDE RECORDS SUMMARY | 2017-03-12 00:01 | XMS REPORT ---
Author Bret Dennison Organization [employer] Address Unknown Phone Unavailable Care Team Providers Care Carbon Paper Machine Operator Name Role Phone Bret Olmedo CP Unavailable [...]
--- OUTSIDE RECORDS SUMMARY | 2017-03-12 00:01 | XMS REPORT | Referral Summary ---
Author Author [facility] Organization [facility] Address Unknown Phone Unavailable Care Team Providers Care Rn Placement Name Role Phone [facility] Primary Care Physician Unavailable Encounter [facility] [id number] Date(s): 08/17/16 - 08/19/16 [facility] [address] [place] [address] Discharge Disposition: 01-Home or Self Care Attending Physician: Ashley Moran MD Admitting Physician: Radha Whitfield DO Vital Signs Most recent to 1 oldest [Reference Range]: Temperature Oral 36.5 degC [35.8-37.3 degC] (08/19/16 11:06 AM) Temperature Skin 37.0 degC [36-37 degC] (08/19/16 2:35 PM) Apical Heart Rate 80 bpm [60-100 bpm] (08/17/16 3:47 AM) Peripheral Pulse 88 bpm Rate [60-100 bpm] (08/19/16 11:06 AM) Heart Rate Monitored 78 bpm [60-100 bpm] (08/19/16 2:35 PM) Respiratory Rate 16 br/min [14-20 br/min] (08/19/16 2:00 PM) Blood Pressure 149/89 mmHg [90-140/60-90 mmHg] *HI* (08/19/16 2:35 PM) Mean Arterial 112 mmHg Pressure, Cuff (08/19/16 2:00 PM) SpO2 98 % (08/19/16 2:35 PM) Remote Telemetry Ongoing (08/19/16 2:00 PM) Problem List Condition Effective Dates Status Health Status Informant Acute Active pain(Confirmed) At risk for Active injury(Confirmed)1 Cancer(Confirmed) Active patient Hypertension(Confirm Active patient ed) Fibrosarcoma(Confirm Active patient ed) Prostate Active patient cancer(Confirmed) Mass of right Active wrist(Confirmed) Obesity(Confirmed) Active patient 1Problem added automatically by system based on initiation of Risk for Injury Plan of Care Allergies, Adverse Reactions, Alerts Substance Reaction Severity Status antihistamines Shakes Severe Active Compazine Jittery Mild Active Compazine Spansule Shakes Severe Active Flexeril Hives Severe Active Shakes Inapsine Jittery Mild Active morphine shakes Severe Active Reglan Jittery Mild Active Medications Calcium 500+D 1 tabs, Chewed, BID, 0 Refill(s) Start Date: 06/08/16 Status: Ordered Casodex 50 mg, Oral, q24hr, 0 Refill(s) Start Date: 11/29/14 Status: Ordered cloNIDine 0.1 mg, Oral, Daily, 0 Refill(s) Start Date: 07/01/16 Status: Ordered Colace 100 mg oral capsule 100 mg 1 caps, Oral, BID, 0 Refill(s) Start Date: 08/19/16 Status: Ordered Klor-Con 20 mEq, Oral, TID, 0 Refill(s) Start Date: 07/01/16 Status: Ordered Lasix 40 mg, Oral, BID, 0 Refill(s) Start Date: 06/08/16 Status: Ordered Levemir FlexTouch 100 units/mL subcutaneous solution 20 units, SubCutaneous, Bedtime (once a day), 0 Refill(s) Start Date: 08/17/16 Status: Ordered lisinopril 40 mg oral tablet 40 mg 1 tabs, Oral, Daily, 0 Refill(s) Start Date: 08/17/16 Status: Ordered Lupron Depot 45 mg/6 months intramuscular injection, extended release 45 mg, IntraMuscular, q6mo, 0 Refill(s) Start Date: 08/17/16 Status: Ordered metFORMIN 500 mg, Oral, BID, 0 Refill(s) Start Date: 07/01/16 Status: Ordered Myrbetriq 25 mg oral tablet, extended release 25 mg 1 tabs, Oral, Daily, do not crush or chew, # 30 tabs, 0 Refill(s) Start Date: 08/17/16 Status: Ordered Norvasc 10 mg, Oral, Daily, 0 Refill(s) Start Date: 09/06/14 Status: Ordered oxyCODONE-acetaminophen 10 mg-325 mg oral tablet 1 tabs, Oral, q6hr, Pain Moderate (4-6), X 7 days, # 21 tabs, 0 Refill(s) Start Date: 08/19/16 Stop Date: 08/26/16 Status: Ordered ProAir HFA 90 mcg/inh inhalation aerosol 2 puffs, Inhalation, QID, Shortness of Breath/Wheezing, 0 Refill(s) Start Date: 08/17/16 Status: Ordered promethazine 12.5 mg oral tablet 12.5 mg 1 tabs, Oral, q6hr, as needed for nausea/vomiting, 0 Refill(s) Start Date: 08/17/16 Status: Ordered Soma 350 mg, Oral, BID, Muscle Spasm, 0 Refill(s) Start Date: 08/17/16 Status: Ordered Results Hematology Most recent to 1 oldest [Reference Range]: WBC [4.8-10.8 6.6 10*3/uL 10*3/uL] (08/19/16 7:28 AM) RBC [4.60-6.20] 4.05 *LOW* (08/19/16 7:28 AM) Hgb [14.0-18.0 12.0 gm/dL gm/dL] *LOW* (08/19/16 7:28 AM) Hct [42.0-52.0 %] 34.5 % *LOW* (08/19/16 7:28 AM) MCV [82.0-99.0 fL] 85.2 fL (08/19/16 7:28 AM) MCH [27.0-32.0 pg] 29.6 pg (08/19/16 7:28 AM) MCHC [32.0-36.0 34.8 gm/dL gm/dL] (08/19/16 7:28 AM) RDW [11.5-14.5 %] 12.4 % (08/19/16 7:28 AM) Platelet [150-400 147 10*3/uL 10*3/uL] *LOW* (08/19/16 7:28 AM) MPV [9.4-12.3 fL] 10.7 fL (08/19/16 7:28 AM) Immature 0.3 % Granulocytes (08/19/16 7:28 AM) [0.0-1.0 %] Neutrophils [51-75 52 % %] (08/19/16 7:28 AM) Lymphocytes [20-46 39 % %] (08/19/16 7:28 AM) Monocytes [4-11 %] 7 % (08/19/16 7:28 AM) Eosinophils [0-4 %] 1 % (08/19/16 7:28 AM) Basophils [0-2 %] 0 % (08/19/16 7:28 AM) Neutro Absolute 3.42 10*3 [1.90-7.00 10*3] (08/19/16 7:28 AM) Lymph Absolute 2.57 10*3 [0.80-3.30 10*3] (08/19/16 7:28 AM) Cook Absolute 0.47 10*3 [0.30-1.00 10*3] (08/19/16 7:28 AM) Eos Absolute 0.09 10*3 [0.00-0.50 10*3] (08/19/16 7:28 AM) Baso Absolute 0.01 10*3 [0.00-0.20 10*3] (08/19/16 7:28 AM) Nucleated RBC 0.0 /100 WBC Automated [0 /100 (08/19/16 7:28 AM) WBC] Differential Scanned Slide (08/18/16:16 AM) Coagulation Most recent to 1 oldest [Reference Range]: INR [0.9-1.2] 1.0 (08/19/16 7:28 AM) PTT [25.0-35.0 32.0 seconds seconds] (08/19/16 7:28 AM) Chemistry Most recent to 1 oldest [Reference Range]: Sodium Lvl [136-144 139 mEq/L mEq/L] (08/19/16 5:46 AM) Potassium Lvl 3.9 mEq/L 1 [3.6-5.1 mEq/L] (08/19/16 5:46 AM) Chloride [99-109 104 mEq/L mEq/L] (08/19/16 5:46 AM) CO2 [22-32 mEq/L] 28 mEq/L (08/19/16 5:46 AM) AGAP [3-20] 7 (08/19/16 5:46 AM) BUN [4-20 mg/dL] 10 mg/dL (08/19/16 5:46 AM) Glucose Lvl [70-100 124 mg/dL mg/dL] *HI* (08/19/16 5:46 AM) Creatinine Lvl 0.79 mg/dL [0.64-1.27 mg/dL] (08/19/16 5:46 AM) eGFR [>60] >60 2 (08/19/16 5:46 AM) Calcium Lvl 8.4 mg/dL [8.6-10.0 mg/dL] *LOW* (08/19/16 5:46 AM) Albumin Lvl [3.5-4.8 3.5 gm/dL gm/dL] (08/17/16 2:50 AM) Total Protein 6.0 gm/dL [6.1-7.9 gm/dL] *LOW* (08/17/16 2:50 AM) Globulin [1.9-4.3 2.5 gm/dL gm/dL] (08/17/16 2:50 AM) ALT [17-63 U/L] 37 U/L (08/17/16 2:50 AM) AST [15-41 U/L] 35 U/L (08/17/16 2:50 AM) Alk Phos [26-104 76 U/L U/L] (08/17/16 2:50 AM) Bili Total [0.2-1.2 0.7 mg/dL 3 mg/dL] (08/17/16 2:50 AM) Magnesium Lvl 2.2 mg/dL [1.8-2.5 mg/dL] (08/18/16 5:16 AM) Blood Glucose, 91 mg/dL Capillary [70-100 (08/19/16 2:00 PM) mg/dL] Blood Glucose, 91 mg/dL Capillary [74-106 (08/19/16 2:00 PM) mg/dL] 1Result Comment: Hemolyzed specimen. The following tests may be affected: ALT, AST, Ammonia, Iron, Potassium, LDH, Amylase, CPK, and Total Bilirubin. 2Result Comment: Multiply eGFR results by 1.21 for race. 3Result Comment: Naproxen, specifically the metabolite O-desmethylnaproxen, may cause spurious elevation in Total Bilirubin levels. Immunizations Vaccine Date Refusal Reason tetanus-diphth toxoids (Td) adult/adol 07/02/04 Procedures Procedure Date Related Diagnosis Body Site Craniotomy Insertion of Port-a-cath Shoulder repair Total knee replacement1 1right total knee replacement Social History Social History Type Response Smoking Status Never smoker Assessment and Plan No data available for this section
--- OUTSIDE RECORDS SUMMARY | 2017-03-12 00:01 | XMS REPORT ---
Author Maco Simpson Organization [employer] Address Unknown Phone Unavailable Care Team Providers Care Investment Accounting Clerk Name Role Phone Maco Mason CP Unavailable [...]
--- OUTSIDE RECORDS SUMMARY | 2017-03-12 00:01 | XMS REPORT | Referral Summary ---
Author Organization Unknown Address Unknown Phone Unavailable Care Team Providers Care Corporate Tax Manager Name Role Phone [facility] Primary Care Physician Unavailable Encounter [facility] [id number] Date(s): 11/07/14 - 11/07/14 [facility], JARON, Founderberto Lambert, Plastic Surgery [address] [place], [place] [address] Discharge Diagnosis: Lipoma Discharge Disposition: Home or [...] Visit Note Author: Izaiah Han MD Date: 11/07/14 Assessment/Plan Lipoma We did remove sutures today. We discussed with him about using the derma on his scars. He is otherwise doing well. He will follow-up with us on an as-needed basis. Ordered: Postoperative Est [id number] Return to Clinic Extracted from: Title: Ambulatory Patient Education Author: Izaiah Han MD Date : 11/07/14 Family Medicine Lipoma A lipoma is a [...] 12/26/2012 Document Reviewed: ExitCare Patient Information 2014 [employer], [facility]. No follow up information was provided. Referrals to Other Providers Referred by: Izaiah Han MD
--- OUTSIDE RECORDS SUMMARY | 2017-03-12 00:01 | XMS REPORT ---
Author Maco Simpson Organization [employer] Address Unknown Phone Unavailable Care Team Providers Care Records Management Technician Name Role Phone Maco Mason CP [...]
--- OUTSIDE RECORDS SUMMARY | 2017-03-12 00:01 | XMS REPORT ---
Author Author [facility] - Organization Unknown Address Unknown Phone Unavailable Allergies, Adverse Reactions, Alerts * naproxen causes Adverse Reaction. * Reglan causes Adverse Reaction. * Compazine causes JITTERY. * Inapsine causes JITTERY. * Latex Allergy has not been assessed. * IV Contrast Allergy has not been assessed. Problems * Colonoscopy* Status:Active. Procedures No relevant procedures performed. Medication Medication reconciliation has not been performed. Results LAB--CHEMISTRY from 05/06/2013 4:42 PMAnion Gap 9 (3-20 ) Albumin 3.9 g/dL (3.5-4.8 g/dL) Alkaline Phosphatase 93 U/L (26-104 U/L) ALT (SGPT) 26 U/L (17-63 U/L) AST (SGOT) 26 U/L (15-41 U/L) Bilirubin Total 0.9 mg/dL (0.2-1.2 mg/dL) BUN 14 mg/dL (4-20 mg/dL) Calcium 9.2 mg/dL (8.6-10.0 mg/dL) Chloride 102 mEq/L (99-109 mEq/L) CO2 28 mEq/L (22-32 mEq/L) Creatinine 0.84 mg/dL (0.64-1.27 mg/dL) eGFR >60 (>60- ) Globulin 2.7 g/dL (1.9-4.3 g/dL) Glucose 118 mg/dL H (70-100 mg/dL) Potassium 3.0 mEq/L L (3.6-5.1 mEq/L) Sodium 139 mEq/L (136-144 mEq/L) Protein 6.6 g/dL (6.1-7.9 g/dL) LAB--HEMATOLOGY from 05/06/2013 4:42 PMAbsolute Basophils 0.03 THOUS (0.00-0.20 THOUS) Absolute Eosinophils 0.11 THOUS (0.00-0.50 THOUS) Absolute Lymphocytes 4.46 THOUS H (0.80-3.30 THOUS) Absolute Monocytes 0.72 THOUS (0.30-1.00 THOUS) Absolute Neutrophils 4.44 THOUS (1.90-7.00 THOUS) HCT 36.5 % L (42.0-52.0 %) HGB 13.5 g/dl L (14.0-18.0 g/dl) MCH 30.8 pg (27.0-32.0 pg) MCHC 37.0 g/dL H (32.0-36.0 g/dL) MCV 83.1 fL (82.0-99.0 fL) MPV 10.8 fL (9.4-12.3 fL) Platelet Count 182 K/uL (150-400 K/uL) RBC 4.39 M/uL L (4.60-6.20 M/uL) RDW 12.9 % (11.5-14.5 %) WBC 9.8 K/uL (4.8-10.8 K/uL) Basophils 0 % (0-2 %) Eosinophils 1 % (0-4 %) Immature Granulocytes 0.4 % (0.0-1.0 %) Lymphocytes 46 % (20-46 %) Monocytes 7 % (4-11 %) Nucleated RBC Automated 0.0 /100 WBC (0 /100 WBC) Differential Scanned Slide Neutrophils 45 % L (51-75 %)
--- OUTSIDE RECORDS SUMMARY | 2017-03-12 00:01 | XMS REPORT ---
Author Author Dean Gannon Organization [employer] Address Unknown Phone Unavailable Care Team Providers Care Transportation Aid Name Role Phone Dean Gannon CP Unavailable [...]
--- OUTSIDE RECORDS SUMMARY | 2017-03-12 00:01 | XMS REPORT ---
Author Author Katrin Olvera [facility] eClinical[employer] Address Unknown Phone Unavailable Care Team Providers Care Denture Processor Name Role Phone Katrin Olvera Unavailable Allergies [...] Instructions Start Date End Date Status Dosage Amoxicillin-Pot Clavulanate [facility] [address]-02 500-125 MG Orally Twice a day Aug 22, 2015 Sep 01, 2015 1 tablet Results No Known Results Summary Purpose eClinicalWorks Submission
--- OUTSIDE RECORDS SUMMARY | 2017-03-12 00:01 | XMS REPORT ---
Author Author Christi Fournier Organization [employer] Address Unknown Phone Unavailable Care Team Providers Care Inside Polisher Name Role Phone Christi Fournier Unavailable Allergies No Known Allergies Problems Problem [...] Start Date End Date Status [facility]os[facility] [address]-86 350 MG Orally twice a day January 29, 2014 Active 1 tablet as needed Results No Known Results Summary Purpose eClinicalWorks Submission
--- OUTSIDE RECORDS SUMMARY | 2017-03-12 00:02 | XMS REPORT ---
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 Active 73389122534683808 Problem Degeneration of lumbar or lumbosacral intervertebral disc 722.52 Active 72682282 Problem Chronic pancreatitis 577.1 Active 341320741 Problem Giant cell arteritis 446.5 Active 367398570 Problem Localized osteoarthrosis not specified whether primary or secondary, lower leg 715.36 Active 23088042 Problem Malignant neoplasm of prostate 185 Active 083509685 Problem Spasm of muscle 728.85 Active 62877030 Problem Regular astigmatism, bilateral H52.223 Active 14143482 Problem Pain in soft tissues of limb 729.5 Active 01247333 Problem Age-related nuclear cataract, bilateral H25.13 Active 331187596 Problem Allergic rhinitis, cause unspecified 477.9 Active 13734901 Problem Type 2 diabetes mellitus with hyperglycemia E11.65 Active 009300691536311 Problem 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 520272943 Problem Pain in right knee M25.561 Active 543662281453741 Problem Localized adiposity E65 Active 810706856 Problem Essential (primary) hypertension I10 Active 55085978 Problem Other acute pain 338.19 Active 659498317 Problem Pain in joint, shoulder region 719.41 Active 716970810 Problem Lipoma of other skin and subcutaneous tissue 214.1 Active 488132929 Problem Essential hypertension, benign 401.1 Active 4086053 Problem Chronic kidney disease, stage 1 N18.1 Active 549922830 Problem Wedge compression fracture of unspecified lumbar vertebra, subsequent encounter for fracture with nonunion S32.000K Active 526621504 Problem Chronic pain syndrome G89.4 Active 072576934 Problem 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 Active Problem Other obesity E66.8 Active 660432533 Problem 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
--- OUTSIDE RECORDS SUMMARY | 2017-03-12 00:02 | XMS REPORT ---
Author Author Katrin Olvera [employer] Address Unknown Phone Unavailable Care Team Providers Care Heel Seam Rubber Name Role Phone Katrin Olvera Unavailable Allergies, [...] Pain in joint, lower leg 719.46 Active Assessment Type 2 diabetes mellitus with hyperglycemia E11.65 Active Problem Routine general medical examination at health care facility V70.0 Active Problem Obesity, unspecified 278.00 Active Problem Abnormal weight gain 783.1 Active Problem Lumbago 724.2 Active Problem Lipoma of other skin and subcutaneous tissue 214.1 Active Medications Medication Code System Code Instructions Start Date End Date Status Dosage Clonidine HCl [facility] [address]-35 0.1 MG Orally Once a day May 01, [address] [facility] [address]-03 400-133.3 Orally 1 PO daily Hydrochlorothiazide [facility] [address]-06 25 MG Orally Once a day January 05, [address] [facility] [address]-10 50 MCG/ACT Nasally bid Sep 07, 2014 1 spray in each nostril [place] [facility] [address]-41 10-325 MG Orally every 6 hrs 1 tablet as needed Gabapentin [facility] [address]-54 300 MG Orally BID May 01, 2015 1 capsule Potassium Chloride [facility] [address]-32 20 MEQ Orally Three times a day [address] HFA [facility] [address]-38 108 (90 Base) MCG/ACT Inhalation every 4 hrs PRN wheezing January 05, 2013 2 puffs as needed Ultra-Thin II Mini Pen Needle [facility] [address]39 31G X 5 MM SQ QHS Aug 05, 2015 as directed M[address]inex [facility] [address]-19 600 MG Orally every 12 hrs, take with plenty of water January 29, 2014 1 tablet as needed Tradjenta [facility] [address]-83 5 MG Orally Once a day Aug 05, 2015 1 tablet Insulin Detemir [facility] [address]-84 100 UNIT/ML Subcutaneous QHS Aug 05, [address] [facility] [address]-89 500-125 MG Orally Twice a day Aug 01, 2015 Aug 11, 2015 1 tablet Metformin HCl [facility] [address]-99 500 MG Orally Twice a day Aug 01, 2015 Start 1 tab daily for 7 days, then 1 tabe BID 7 days, then 2 tabs BID Lupron Depot [facility] [address]-63 45 MG Intramuscular as directed Glucose Blood NDC 0 1 SQ BID prn Aug 01, 2015 as directed Casodex [facility] [address]-64 50 MG Orally Once a day 1 tablet Amlodipine Besylate [facility] [address]-29 10 MG Orally Once a day take one tablet by mouth daily Zometa [facility] [address]-97 4 MG/5ML Intravenous as directed Procedures Procedure Coding System Code Date REAGENT STRIP/BLOOD GLUCOSE CPT-4 38965 Aug 05, 2015 Office Visit, New Pt., Level 3 CPT-4 40435 Aug 05, 2015 URINALYSIS, AUTO, W/O SCOPE CPT-4 55875 Aug 05, 2015 Vital Signs Date/Time: Aug 05, 2015 BMI 35.90 Index Weight 250 lb 4 oz lbs Height 70 in Blood Pressure Diastolic 99 mm Hg Blood Pressure Systolic 144 mm Hg Temperature 96.8 F Cardiac Monitoring Heart Rate 71 /min Results Name Result Date Reference Range Unit Abnormality Flag Glucose blood fingerstick (GM) Summary Purpose eClinicalWorks Submission
--- OUTSIDE RECORDS SUMMARY | 2017-03-12 00:02 | XMS REPORT | Referral Summary ---
Author Author [facility] Organization [facility] Address Unknown Phone Unavailable Care Team Providers Care Dairy Husbandry Worker Name Role Phone [facility] Primary Care Physician Unavailable Encounter [facility] [id number] Date(s): 01/03/16 - 01/03/16 [facility] [address] [place] [address] Discharge Disposition: Without Being Seen Attending Physician: Alejandro Pena MD Admitting Physician: Alejandro Pena MD Vital Signs No data available for [...] 0 Refill(s) Start Date: 05/16/14 Status: Ordered [place] 10 mg-325 mg oral tablet tabs, Oral, [...] Procedures Procedure Date Related Diagnosis Body Site 01/03/16 Craniotomy Insertion of Port-a-cath Shoulder repair Total knee replacement1 1right total knee replacement Social History Social History Type Response Smoking Status Never smoker Assessment and Plan No data available for this section
--- OUTSIDE RECORDS SUMMARY | 2017-03-12 00:02 | XMS REPORT ---
Author Maco Simpson Organization [employer] Address Unknown Phone Unavailable Care Team Providers Care Director Of Managed Care Name Role Phone Maco Mason CP Unavailable [...]
--- OUTSIDE RECORDS SUMMARY | 2017-03-12 00:02 | XMS REPORT | Referral Summary ---
Author Author [facility] Organization [facility] Address Unknown Phone Unavailable Care Team Providers Care Fisher Lobster Name Role Phone [facility] Primary Care Physician Unavailable Encounter [facility] [id number] Date(s): 08/23/16 - 08/23/16 [facility] [address] [place], [place] [address] Discharge Diagnosis: HSV-1 infection Discharge Disposition: 01-Home or Self Care Attending Physician: Harpal Villasenor MD Admitting Physician: Harpal Villasenor MD Vital Signs Most recent to 1 oldest [Reference Range]: Temperature Oral 36.7 degC [35.8-37.3 degC] (08/23/16 12:13 PM) Peripheral Pulse 60 bpm Rate [60-100 bpm] (08/23/16 1:44 PM) Respiratory Rate 14 br/min [14-20 br/min] (08/23/16 12:13 PM) Blood Pressure 137/92 mmHg [90-140/60-90 mmHg] (08/23/16 1:44 PM) SpO2 95 % (08/23/16 12:13 PM) Problem List Condition Effective Dates Status [...] Severe Active Shakes Inapsine Jittery Mild Active Reglan Jittery Mild Active Medications acyclovir-hydrocortisone 5%-1% topical cream 1 mukesh, Topical, 5x/Day, dony recio md, X 7 days, # 5 g, 0 Refill(s) Start Date: 08/23/16 Stop Date: 08/30/16 Status: Ordered Calcium 500+D 1 tabs, Chewed, BID, 0 [...] Refill(s) Start Date: 08/17/16 Status: Ordered Results No data available for [...]
--- OUTSIDE RECORDS SUMMARY | 2017-03-12 00:02 | XMS REPORT ---
Author Author Maco Mason Organization [employer] Address Unknown Phone Unavailable Care Team Providers Care Credit Collections Rep Name Role Phone Maco Mason CP Unavailable [...] Instructions Start Date End Date Status Dosage Potassium Chloride [facility] [address]-17 20 MEQ Orally Three times a day JulDec 02, 2016 1 capsule Results No Known Results Summary Purpose [employer]ClinicalWorks Submission
--- OUTSIDE RECORDS SUMMARY | 2017-03-12 00:02 | XMS REPORT ---
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 Active 46828848385651551 Problem Chronic pancreatitis 577.1 Active 901150798 Problem Giant cell arteritis 446.5 Active 452403074 Problem Localized osteoarthrosis not specified whether primary or secondary, lower leg 715.36 Active 72879752 Problem Pain in left shoulder M25.512 Active 706632972 Problem Malignant neoplasm of prostate 185 Active 606734580 Problem Presbyopia H52.4 Active 73348330 Problem Spasm of muscle 728.85 Active 76345819 Problem Regular astigmatism, bilateral H52.223 Active 04088176 Problem Type 2 diabetes mellitus with hyperglycemia E11.65 Active 856928676428921 Problem Age-related nuclear cataract, bilateral H25.13 Active 452118706 Problem Wedge compression fracture of unspecified lumbar vertebra, subsequent encounter for fracture with nonunion S32.000K Active 017158432 Problem Chronic pain syndrome G89.4 Active 748940303 Problem Lipoma of other skin and subcutaneous tissue 214.1 Active 205964840 Problem Allergic rhinitis, cause unspecified 477.9 Active 42159311 Problem Pain in soft tissues of limb 729.5 Active 43952388 Problem 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 978737596 Problem Pain in right knee M25.561 Active 904790965163419 Problem Essential hypertension, benign 401.1 Active 6723883 Problem Chronic kidney disease, stage 1 N18.1 Active 859081067 Problem 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 Problem Localized superficial swelling, mass, or lump 782.2 Active 115946647 Problem Pain in joint, shoulder region 719.41 Active 509802320 Problem Other acute pain 338.19 Active 361842400 Problem Essential (primary) hypertension I10 Active 67861219 Problem Pain in right wrist M25.531 Active 77582739 Problem 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 Active Problem Other obesity E66.8 Active 779288188 ALLERGIES Unknown Allergies SOCIAL HISTORY No smoking Hx information available PLAN OF CARE VITAL SIGNS MEDICATIONS Unknown Medications RESULTS No Results PROCEDURES No Known procedures IMMUNIZATIONS No Known Immunizations
--- OUTSIDE RECORDS SUMMARY | 2017-03-12 00:02 | XMS REPORT ---
Author Author Katrin Olvera Organization [employer] Address Unknown Phone Unavailable Care Team Providers Care Frame Hand Name Role Phone Katrin Olvera CP Unavailable Allergies No Known Allergies Problems Problem Type Condition ICD-9 Code Onset Dates Condition Status Problem Obesity, unspecified 278.00 Active Problem Degeneration [...] for removal of sutures V58.32 Active Medications No Known Medications Results No Known Results Summary Purpose [employer]Clinical[employer] Submission
--- OUTSIDE RECORDS SUMMARY | 2017-03-12 00:02 | XMS REPORT ---
Author Author Dean Gannon Organization [employer] Address Unknown Phone Unavailable Care Team Providers Care Auto Mechanics Instructor Name Role Phone Dean Gannon CP Unavailable [...]
--- OUTSIDE RECORDS SUMMARY | 2017-03-12 00:02 | XMS REPORT ---
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 Active 15659640435140800 Problem Degeneration of lumbar or lumbosacral intervertebral disc 722.52 Active 92929282 Problem Chronic pancreatitis 577.1 Active 914141553 Problem Giant cell arteritis 446.5 Active 177605357 Problem Localized osteoarthrosis not specified whether primary or secondary, lower leg 715.36 Active 76206921 Problem Malignant neoplasm of prostate 185 Active 816362619 Problem Spasm of muscle 728.85 Active 90015838 Problem Regular astigmatism, bilateral H52.223 Active 15712627 Problem Pain in soft tissues of limb 729.5 Active 21886713 Problem Age-related nuclear cataract, bilateral H25.13 Active 058794884 Problem Allergic rhinitis, cause unspecified 477.9 Active 19060082 Problem Type 2 diabetes mellitus with hyperglycemia E11.65 Active 343507619519523 Problem 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 214207601 Problem Pain in right knee M25.561 Active 412109937872443 Problem Localized adiposity E65 Active 393856895 Problem Essential (primary) hypertension I10 Active 32379496 Problem Other acute pain 338.19 Active 639354378 Problem Pain in joint, shoulder region 719.41 Active 347763672 Problem Lipoma of other skin and subcutaneous tissue 214.1 Active 275132653 Problem Essential hypertension, benign 401.1 Active 0173226 Problem Chronic kidney disease, stage 1 N18.1 Active 358041085 Problem Wedge compression fracture of unspecified lumbar vertebra, subsequent encounter for fracture with nonunion S32.000K Active 351136196 Problem Chronic pain syndrome G89.4 Active 779983814 Problem 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 Active Problem Other obesity E66.8 Active 675660997 Problem 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 Problem Localized superficial swelling, mass, or lump 782.2 Active 065633791 Problem Pain in left shoulder M25.512 Active 804308421 Problem Presbyopia H52.4 Active 71218189 Problem Essential (primary) hypertension I10 Active 27330604 Problem Pain in right wrist M25.531 Active 59046590 ALLERGIES Substance Reaction Event Type Date Status Reglan Unknown Drug Allergy Dec, Active Prochlorperazine Unknown Drug Allergy Dec, Active Morphine Sulfate nausea Drug Allergy Dec, Active Inapsine Unknown Drug Allergy Dec, Active Clindamycin HCl stomach upset Drug Allergy Dec, Active seasonal Unknown Non Drug Allergy Dec, Active SOCIAL HISTORY No smoking Hx information available PLAN OF CARE VITAL SIGNS Height 0 in 2017-01-06 Weight 0 lbs 2017-01-06 BMI 0 kg/m2 2017-01-06 Heart Rate 71 /min 2017-01-06 Blood pressure systolic 147 mm Hg 2017-01-06 Blood pressure diastolic 90 mm Hg 2017-01-06 MEDICATIONS Medication Instructions Dosage Frequency Start Date End Date Duration Status Blood Glucose Monitor System One touch ultra mini as directed 12oct 30 Active Lupron Depot 45 MG as directed Active Amlodipine Besylate 10 MG Orally Once a day take one tablet by mouth daily 24h 90 Active Ultra-Thin II Mini Pen Needle 31G X 5 MM / Dx Code: E11.65 SQ QHS as directed Jul, 90 days Active ProAir HFA 108 (90 Base) MCG/ACT Inhalation every 4 hrs PRN wheezing 2 puffs as needed 30 Active Lancets Misc. 1 as directed Jul, 30 days Active Flonase 50 MCG/ACT Nasally Once a day 1 puff in each nostril 24h 30 Sep, 2016 30 day(s) Active Promethazine HCl 12.5 TAKE 1 TABLET BY MOUTH EVERY 6 HOURS NEEDED 8 Active True Result Test Strips as directed Aug, dx: 250.00 Active Gabapentin 300 MG Orally BID 1 capsule 12h 15 Apr, 2015 90 days Active One Touch Mini Strips Bottle of 50 strips As directed 12h Oct, 30 Active Levemir FlexTouch 100 UNIT/ML Subcutaneous QHS 20 units February, 30 days Active True Metrix Meter w/Device in vitro check BID as directed Jun, 30 days Active Casodex 50 MG Orally Once a day 1 tablet 24h 30 day(s) Active True Metrix Blood Glucose Test 1 Dx code E11.65 In Vitro twice a day as directed 12h 30 May, 2016 30 Active Tradjenta 5 MG Orally Once a day 1 tablet 24h Nov, 90 days Active Lisinopril 40 MG Orally Once a day 1 tablet 24h Dec, 90 Active Xgeva 120 MG/1.7ML Subcutaneous every three months 1.7 ml Active Glucose Blood 1 In Vitro test BID as directed Apr, 30 Active Lancets as directed Aug, Active Lortab 7.5-325 MG Orally every 6 hrs 1 tablet as needed 6h Active Metformin HCl 500 MG Orally Twice a day 1 tab 12h 15 Jul, 2015 90 days Active TRUEplus Lancets 30G 0 USE TO TEST TWICE DAILY 31 Active Calcium 400-133.3 1 PO daily Active Clonidine HCl 0.1 MG Orally Once a day 1 tablet 24h 30 Active Mucinex 600 MG Orally every 12 hrs, take with plenty of water 1 tablet as needed Jan, Active Hydrochlorothiazide 50 MG 1 TABLET ONCE A DAY ORALLY 90 90 Active RESULTS No Results PROCEDURES Procedure Date Ordered Related Diagnosis Body Site REAGENT STRIP/BLOOD GLUCOSE January 06, 2017 Comprehensive Established Patient Exam January 06, 2017 REFRACTION January 06, 2017 IMMUNIZATIONS No Known Immunizations
--- OUTSIDE RECORDS SUMMARY | 2017-03-12 00:02 | XMS REPORT ---
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 Active Problem Hypertrophy (benign) of prostate without urinary obstruction and other lower urinary tract symptoms [LUTS] 600.00 Oct 13, 2010 Active Problem Essential hypertension, benign 401.1 Active Problem Nonspecific abnormal electrocardiogram (ECG) (EKG) 794.31 Active Problem Acute maxillary sinusitis 461.0 Active Problem Unspecified pre-operative examination V72.84 Active Medications No Known Medications Vital Signs Date/Time: May 29, 2013 Weight 258.9 lbs Height 70 inches Blood Pressure Diastolic 98 mm Hg Blood Pressure Systolic 156 mm Hg Temperature 98.0 F Results No Known Results Summary Purpose [employer]ClinicalWorks Submission
--- OUTSIDE RECORDS SUMMARY | 2017-03-12 00:02 | XMS REPORT ---
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 Active 14766847293130421 Problem Chronic pancreatitis 577.1 Active 714413451 Problem Giant cell arteritis 446.5 Active 689437757 Problem Localized osteoarthrosis not specified whether primary or secondary, lower leg 715.36 Active 11473100 Problem Pain in left shoulder M25.512 Active 428784172 Problem Malignant neoplasm of prostate 185 Active 815619372 Problem Presbyopia H52.4 Active 10409944 Problem Spasm of muscle 728.85 Active 47265953 Problem Regular astigmatism, bilateral H52.223 Active 76282344 Problem Type 2 diabetes mellitus with hyperglycemia E11.65 Active 625469807304714 Problem Age-related nuclear cataract, bilateral H25.13 Active 582926712 Problem Wedge compression fracture of unspecified lumbar vertebra, subsequent encounter for fracture with nonunion S32.000K Active 696204078 Problem Chronic pain syndrome G89.4 Active 697876131 Problem Lipoma of other skin and subcutaneous tissue 214.1 Active 875289200 Problem Allergic rhinitis, cause unspecified 477.9 Active 11175534 Problem Pain in soft tissues of limb 729.5 Active 80647645 Problem 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 455359081 Problem Pain in right knee M25.561 Active 694504832012421 Problem Essential hypertension, benign 401.1 Active 3280832 Problem Chronic kidney disease, stage 1 N18.1 Active 173651130 Problem 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 Problem Localized superficial swelling, mass, or lump 782.2 Active 109582005 Problem Pain in joint, shoulder region 719.41 Active 087187660 Problem Other acute pain 338.19 Active 591911887 Problem Essential (primary) hypertension I10 Active 95639046 Problem Pain in right wrist M25.531 Active 53258729 Problem 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
--- OUTSIDE RECORDS SUMMARY | 2017-03-12 00:02 | XMS REPORT ---
Author Author Katrin Olvera [facility] [employer] Address Unknown Phone Unavailable Care Team Providers Care Strap Cutting Machine Operator Name Role Phone Katrin Olvera Unavailable Allergies No Known Allergies Problems Problem Type Condition Code Onset Dates Condition Status Problem Sprain and strain of other specified sites of knee and leg 844.8 Active Problem Chronic pancreatitis 577.1 Active Problem Giant cell arteritis 446.5 Active Problem Headache 784.0 Active Problem Acute frontal [...] Problem Impaired fasting glucose R73.01 Active Problem Cellulitis and abscess of mouth K12.2 Active Problem 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
--- OUTSIDE RECORDS SUMMARY | 2017-03-12 00:03 | XMS REPORT ---
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 Active Problem Acute maxillary sinusitis 461.0 Active Problem Nonspecific abnormal electrocardiogram (ECG) (EKG) 794.31 Active Problem Hypertrophy (benign) of prostate without urinary obstruction and other lower urinary tract symptoms [LUTS] 600.00 Oct 13, 2010 Active Problem Unspecified pre-operative examination V72.84 Active Problem Chronic pancreatitis 577.1 Active Problem Sprain and strain of other specified sites of knee and leg 844.8 Active Problem Headache 784.0 Active Problem Giant cell arteritis 446.5 Active Problem Routine general medical examination at health care facility V70.0 Active Problem Acute frontal sinusitis 461.1 Active Problem Abnormal weight gain 783.1 Active Problem Localized osteoarthrosis not specified whether primary or secondary, lower leg 715.36 Active Problem hypokalemia 276.8 Active Problem Other acute pain 338.19 Active Problem Pain in joint, shoulder region 719.41 Active Problem Cellulitis and abscess of mouth K12.2 Active Problem Other polyuria R35.8 Active Problem Acute sinusitis, unspecified 461.9 Active Problem Encounter for removal of sutures V58.32 Active Problem Impaired fasting glucose R73.01 Active Problem Malignant neoplasm of prostate 185 Active Problem Localized superficial swelling, mass, or lump 782.2 Active Problem 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 Problem Polydipsia R63.1 Active Problem Localized swelling, mass and lump, trunk R22.2 Active Problem Degeneration of lumbar or lumbosacral intervertebral disc 722.52 Active Problem Pain in soft tissues of limb 729.5 Active Problem Essential hypertension, benign 401.1 Active Problem Pain in joint, lower leg 719.46 Active Problem Spasm of muscle 728.85 Active Problem Obesity, unspecified 278.00 Active Problem Acute bronchitis 466.0 Active Problem Lumbago 724.2 Active Problem Lipoma of other skin and subcutaneous tissue 214.1 Active Problem Swelling, mass, or lump in head and neck 784.2 Active Problem Allergic rhinitis, cause unspecified 477.9 Active Medications No Known Medications Results No Known Results Summary Purpose [employer]ClinicalWorks Submission
--- OUTSIDE RECORDS SUMMARY | 2017-03-12 00:03 | XMS REPORT ---
Author Author Dean Gannon Organization [employer] Address Unknown Phone Unavailable Care Team Providers Care Scalder Name Role Phone Dean Gannon CP Unavailable Allergies, Adverse Reactions, Alerts Substance Reaction Event Type Reglan Info Not Available Drug Allergy Prochlorperazine Info Not Available Drug Allergy Morphine Sulfate nausea Drug Allergy Inapsine Info Not Available Drug Allergy seasonal Info Not Available Non Drug Allergy Problems Problem Type Condition Code Onset Dates Condition Status Problem Lipoma of other skin and subcutaneous tissue 214.1 Active Problem Other acute pain 338.19 Active Problem Pain in joint, shoulder region 719.41 Active Problem Pain in right wrist M25.531 Active Assessment Pain in right wrist M25.531 Active Problem Essential (primary) hypertension I10 Active Assessment Malignant neoplasm of prostate C61 Active Problem Pain in left shoulder M25.512 Active Problem Localized superficial swelling, mass, or lump 782.2 Active Problem 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 Problem Other obesity E66.8 Active Problem 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 Active Problem 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 Active Problem Chronic pancreatitis 577.1 Active Assessment Pain in left shoulder M25.512 Active Problem Degeneration of lumbar or lumbosacral intervertebral disc 722.52 Active Problem Malignant neoplasm of prostate 185 Active Problem Spasm of muscle 728.85 Active Problem Giant cell arteritis 446.5 Active Problem Pain in soft tissues of limb 729.5 Active Problem Localized osteoarthrosis not specified whether primary or secondary, lower leg 715.36 Active Problem Allergic rhinitis, cause unspecified 477.9 Active Medications Medication Code System Code Instructions Start Date End Date Status Dosage Amlodipine Besylate [facility] [address]-39 10 MG Orally Once a day take one tablet by mouth daily Tradjenta [facility] [address]-47 5 MG Orally Once a day Aug 05, 2015 1 tablet Potassium Chloride [facility] [address]-69 20 MEQ Orally Three times a day Dec 08, 2015 1 capsule Metformin HCl [facility] [address]-97 500 MG Orally Twice a day Aug 01, 2015 1 tab Lupron Depot [facility] [address]-16 45 MG Intramuscular as directed ProAir HFA [facility] [address]-05 108 (90 Base) MCG/ACT Inhalation every 4 hrs PRN wheezing January 05, 2013 2 puffs as needed Hydrochlorothiazide [facility] [address]-51 25 MG Orally Once a day January 05, 2013 1 tablet Tipton [facility] [address]-94 10-325 MG Orally every 6 hrs 1 tablet as needed Insulin Detemir [facility] [address]-21 100 UNIT/ML Subcutaneous QHS Aug 05, 2015 20 units Flonase [facility] [address]-57 50 MCG/ACT Nasally bid Sep 07, 2014 1 spray in each nostril Zometa [facility] [address]-50 4 MG/5ML Intravenous as directed Calcium [facility] [address]-58 400-133.3 Orally 1 PO daily Casodex [facility] [address]-90 50 MG Orally Once a day 1 tablet Clonidine HCl [facility] 62667853173 0.1 MG Orally Once a day 1 tablet Gabapentin [facility] [address]-39 300 MG Orally BID May 01, 2015 1 capsule Glucose Blood NDC 0 1 SQ BID prn Aug 01, 2015 as directed Mucinex [facility] [address]-38 600 MG Orally every 12 hrs, take with plenty of water January 29, 2014 1 tablet as needed Lancets Misc. NDC 0 1 test twice daily Aug 05, 2015 as directed Ultra-Thin II Mini Pen Needle [facility] [address] 31G X 5 MM SQ QHS Aug 05, 2015 as directed Glucose Blood NDC 0 1 In Vitro twice daily Aug 08, 2015 as directed Procedures Procedure Coding System Code Date Office Visit, Est Pt., Level 5 CPT-4 63061 Oct 08, 2015 Vital Signs Date/Time: Oct 08, 2015 BMI 37.02 Index Weight 258lbs lbs Height 70 in Blood Pressure Diastolic 96 mm Hg Blood Pressure Systolic 146 mm Hg Temperature 98.2 F Cardiac Monitoring Heart Rate 73 /min Results No Known Results Summary Purpose [employer]ClinicalWorks Submission
--- OUTSIDE RECORDS SUMMARY | 2017-03-12 00:03 | XMS REPORT ---
Author Maco Simpson [facility] [employer] Address Unknown Phone Unavailable Care Team Providers Care Fundraising Sale Representative Name Role Phone Maco Mason Unavailable Allergies [...] Instructions Start Date End Date Status Dosage Metformin HCl [facility] [address]-02 500 MG Orally Twice a day Aug 01, 2015 1 tab Results No Known Results Summary Purpose [employer]ClinicalWorks Submission
--- OUTSIDE RECORDS SUMMARY | 2017-03-12 00:03 | XMS REPORT ---
Author Author Katrin Olvera [employer] Address Unknown Phone Unavailable Care Team Providers Care Casing Man Name Role Phone Katrin Olvera CP Unavailable [...] Active Problem Chronic pancreatitis 577.1 Active Problem Degeneration of lumbar or lumbosacral [...] Date End Date Status Dosage ProAir HFA [facility] [address]-75 108 (90 Base) MCG/ACT Inhalation every 4 hrs PRN wheezing January 05, 2013 2 puffs as needed Results No Known Results Summary Purpose [employer]ClinicalWorks Submission
--- OUTSIDE RECORDS SUMMARY | 2017-03-12 00:03 | XMS REPORT ---
Author Maco Simpson [facility] [employer] Address Unknown Phone Unavailable Care Team Providers Care Clergy Member Name Role Phone Maco Mason Unavailable Allergies [...] End Date Status Dosage Clonidine HCl [facility] 80547914511 0.1 MG Orally Once a day 1 tablet Results No Known Results Summary Purpose [employer]ClinicalWorks Submission
--- OUTSIDE RECORDS SUMMARY | 2017-03-12 00:03 | XMS REPORT ---
Author Author Brittani Patricia [facility] [employer] Address Unknown Phone Unavailable Care Team Providers Care Rubberizing Mechanic Name Role Phone Brittani Patricia CP Unavailable Allergies No Known Allergies Problems [...]
--- OUTSIDE RECORDS SUMMARY | 2017-03-12 00:03 | XMS REPORT ---
Author Author Dean Gannon Organization [employer] Address Unknown Phone Unavailable Care Team Providers Care Gold Stamper Name Role Phone Dean Gannon CP Unavailable [...] Start Date End Date Status Dosage Hydrochlorothiazide [facility] [address]-97 25 MG Orally Once a day January 05, 2013 1 tablet Results No Known Results Summary Purpose eClinicalWorks Submission
--- OUTSIDE RECORDS SUMMARY | 2017-03-12 00:03 | XMS REPORT ---
Author Author Dean Gannon Organization [employer] Address Unknown Phone Unavailable Care Team Providers Care Machine Burrer Name Role Phone Dean Gannon CP Unavailable [...] Date End Date Status Dosage Glucose Blood [facility] [address]-39 1 In Vitro test BID April 23, 2016 as directed Results No Known Results Summary Purpose eClinicalWorks Submission
--- OUTSIDE RECORDS SUMMARY | 2017-03-12 00:03 | XMS REPORT | Referral Summary ---
Author Organization Unknown Address Unknown Phone Unavailable Care Team Providers Care Collar Runner Name Role Phone [facility] Primary Care Physician Unavailable Encounter [facility] [id number] Date(s): 01/07/15 - 01/08/15 [facility] [address] [place] [address] Final: SWELLING OR MASS OF EYE Discharge Disposition: Left Without Being Seen Attending Physician: Petey Vasquez MD Admitting Physician: Petey Vasquez MD Vital Signs Most recent to 1 oldest [Reference Range]: Temperature Oral 36.6 degC [35.8-37.3 degC] (01/07/15 11:35 PM) Peripheral Pulse 91 bpm Rate [60-100 bpm] (01/07/15 11:35 PM) Blood Pressure 151/90 mmHg [90-140/60-90 mmHg] *HI* (01/07/15 11:35 PM) Most recent to 1 oldest [Reference Range]: SpO2 94 % (01/07/15 11:35 PM) Problem List Condition Effective Dates Status [...] Procedures Procedure Date Related Diagnosis Body Site 01/07/15 Craniotomy Insertion of Port-a-cath Shoulder repair Total knee replacement1 1right total knee replacement Social History Social History Type Response Smoking Status Never smoker Assessment and Plan No data available for this section
--- OUTSIDE RECORDS SUMMARY | 2017-03-12 00:03 | XMS REPORT ---
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 Active 08275537972773921 Problem Chronic pancreatitis 577.1 Active 083104874 Problem Giant cell arteritis 446.5 Active 229284389 Problem Localized osteoarthrosis not specified whether primary or secondary, lower leg 715.36 Active 49470866 Problem Pain in left shoulder M25.512 Active 592050620 Problem Malignant neoplasm of prostate 185 Active 264236629 Problem Presbyopia H52.4 Active 63169773 Problem Spasm of muscle 728.85 Active 14080315 Problem Regular astigmatism, bilateral H52.223 Active 27905560 Problem Type 2 diabetes mellitus with hyperglycemia E11.65 Active 223550854855918 Problem Age-related nuclear cataract, bilateral H25.13 Active 437576473 Problem Wedge compression fracture of unspecified lumbar vertebra, subsequent encounter for fracture with nonunion S32.000K Active 308503117 Problem Chronic pain syndrome G89.4 Active 596077676 Problem Lipoma of other skin and subcutaneous tissue 214.1 Active 095491116 Problem Allergic rhinitis, cause unspecified 477.9 Active 14030667 Problem Pain in soft tissues of limb 729.5 Active 42430601 Problem 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 655370477 Problem Pain in right knee M25.561 Active 504392353802913 Problem Essential hypertension, benign 401.1 Active 5571317 Problem Chronic kidney disease, stage 1 N18.1 Active 294960607 Problem 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 Problem Localized superficial swelling, mass, or lump 782.2 Active 025886677 Problem Pain in joint, shoulder region 719.41 Active 838460726 Problem Other acute pain 338.19 Active 187576619 Problem Essential (primary) hypertension I10 Active 13701144 Problem Pain in right wrist M25.531 Active 13416361 Problem 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 Active Problem Other obesity E66.8 Active 247947542 ALLERGIES Unknown Allergies SOCIAL HISTORY No smoking Hx information available PLAN OF CARE VITAL SIGNS MEDICATIONS Medication Instructions Dosage Frequency Start Date End Date Duration Status Levemir FlexTouch 100 UNIT/ML Subcutaneous QHS 20 units February, 30 days Active RESULTS No Results PROCEDURES No Known procedures IMMUNIZATIONS No Known Immunizations
--- OUTSIDE RECORDS SUMMARY | 2017-03-12 00:03 | XMS REPORT | Referral Summary ---
Author Author [facility] Organization [facility] Address Unknown Phone Unavailable Care Team Providers Care Lining Closer Name Role Phone [facility] Primary Care Physician Unavailable Encounter [facility] [id number] Date(s): 05/14/16 - 05/14/[address] [facility] [address] [place], [place] [address] Discharge Disposition: 01-Home or Self Care Attending Physician: Zaki Bojorquez MD Admitting Physician: Zaki Bojorquez MD Vital Signs No data available for [...] 0 Refill(s) Start Date: 05/16/14 Status: Ordered [place] 10 mg-325 mg oral tablet tabs, Oral, [...] Most recent to 1 oldest [Reference Range]: Creatinine Lvl 0.69 mg/dL [0.64-1.27 mg/dL] (05/14/16 10:49 AM) eGFR [>60] >60 1 (05/14/16 10:49 AM) 1Result Comment: Multiply eGFR results by 1.21 for race. Immunizations Vaccine Date Refusal Reason tetanus-diphth toxoids (Td) adult/adol 07/02/04 Procedures Procedure Date Related Diagnosis Body Site Collection of venous blood by venipuncture 05/14/16 Craniotomy Insertion of Port-a-cath Shoulder repair Total knee replacement1 1right total knee replacement Social History Social History Type Response Smoking Status Never smoker Assessment and Plan No data available for this section
--- OUTSIDE RECORDS SUMMARY | 2017-03-12 00:03 | XMS REPORT ---
Author Maco Simpson [facility] eClinicalWorks Address Unknown Phone Unavailable Care Team Providers Care Leader Tier Name Role Phone Maco Mason CP Unavailable [...] Date End Date Status Dosage Amlodipine Besylate [facility] [address]-72 10 MG Orally Once a day take one tablet by mouth daily Results No Known Results Summary Purpose eClinicalWorks Submission
--- OUTSIDE RECORDS SUMMARY | 2017-03-12 00:03 | XMS REPORT ---
Author Author Dean Gannon Organization [employer] Address Unknown Phone Unavailable Care Team Providers Care Wire Strander Name Role Phone Dean Gannon CP Unavailable [...] Instructions Start Date End Date Status Dosage Lancets Misc. NDC 0 1 test twice daily Aug 05, 2015 as directed Results No Known Results Summary Purpose eClinicalWorks Submission
--- OUTSIDE RECORDS SUMMARY | 2017-03-12 00:03 | XMS REPORT ---
Author Bret Dennison Organization [employer] Address Unknown Phone Unavailable Care Team Providers Care Patient Transportation Driver Name Role Phone Bret Olmedo CP Unavailable [...] Date End Date Status Dosage Levemir FlexTouch [facility] [address]-53 100 UNIT/ML Subcutaneous QHS March 02, 2016 20 units Results No Known Results Summary Purpose eClinicalWorks Submission
--- OUTSIDE RECORDS SUMMARY | 2017-03-12 00:03 | XMS REPORT ---
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 Active Problem Age-related nuclear cataract, bilateral H25.13 Active Problem Chronic pancreatitis 577.1 Active Problem Regular astigmatism, bilateral H52.223 Active Problem 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 Active Problem Degeneration of lumbar or lumbosacral intervertebral disc 722.52 Active Problem Type 2 diabetes mellitus with hyperglycemia E11.65 Active Problem Pain in right wrist M25.531 Active Problem Essential (primary) hypertension I10 Active Problem Presbyopia H52.4 Active Problem Pain in left shoulder M25.512 Active Problem Malignant neoplasm of prostate 185 Active Problem Spasm of muscle 728.85 Active Problem Giant cell arteritis 446.5 Active Problem Localized osteoarthrosis not specified whether primary or secondary, lower leg 715.36 Active Problem Lipoma of other skin and subcutaneous tissue 214.1 Active Problem Pain in joint, shoulder region 719.41 Active Problem Pain in soft tissues of limb 729.5 Active Problem Other acute pain 338.19 Active Problem Allergic rhinitis, cause unspecified 477.9 Active Problem 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
--- OUTSIDE RECORDS SUMMARY | 2017-03-12 00:03 | XMS REPORT ---
Author Author Katrin Olvera [facility] eClinicalWorks Address Unknown Phone Unavailable Care Team Providers Care Interventional Radiologist Name Role Phone Katrin Olvera Unavailable Allergies [...]
--- OUTSIDE RECORDS SUMMARY | 2017-03-12 00:03 | XMS REPORT ---
Author Author Christi Fournier Organization [employer] Address Unknown Phone Unavailable Care Team Providers Care Latin Teacher Name Role Phone Christi Fournier CP [...] Date End Date Status Dos[facility] [address]-08 10 MG Orally Once a day Active take one tablet by mouth daily Results No Known Results Summary Purpose eClinicalWorks Submission
--- OUTSIDE RECORDS SUMMARY | 2017-03-12 00:04 | XMS REPORT ---
Author Author Dean Gannon Organization [employer] Address Unknown Phone Unavailable Care Team Providers Care Snack Stewardess Name Role Phone Dean Gannon CP Unavailable [...] Date End Date Status Dosage Amlodipine Besylate [facility] [address]-40 10 MG Orally Once a day take one tablet by mouth daily Metformin HCl [facility] [address]-77 500 MG Orally Twice a day Aug 01, 2015 1 tab Tradjenta [facility] [address]-86 5 MG Orally Once a day Aug 05, 2015 1 tablet Gabapentin [facility] [address]-09 300 MG Orally BID May 01, 2015 1 capsule Results No Known Results Summary Purpose eClinicalWorks Submission
--- OUTSIDE RECORDS SUMMARY | 2017-03-12 00:04 | XMS REPORT ---
Author Author Jennifer Case Organization [employer] Address Unknown Phone Unavailable Care Team Providers Care Health Evaluator Name Role Phone Jennifer Case CP Unavailable [...] Date End Date Status Dosage True Metrix Blood Glucose Test [facility] [address] 1 Dx code E11.65 In Vitro twice a day Jun 16, 2016 as directed Results No Known Results Summary Purpose eClinicalWorks Submission
--- OUTSIDE RECORDS SUMMARY | 2017-03-12 00:04 | XMS REPORT | Referral Summary ---
Author Author [facility] Organization [facility] Address Unknown Phone Unavailable Care Team Providers Care Digital Court Reporter Name Role Phone [facility] Primary Care Physician Unavailable Encounter [facility] [id number] Date(s): 10/11/16 - 10/11/16 [facility] [address] [place] [address] [phone] Discharge Diagnosis: Left against medical advice Discharge Disposition: Left Against Medical Advice Attending Physician: Winsome Wynn MD Admitting Physician: Winsome Wynn MD Vital Signs Most recent to 1 oldest [Reference Range]: Temperature Oral 36.7 degC [35.8-37.3 degC] (10/11/16 2:53 PM) Peripheral Pulse 91 bpm Rate [60-100 bpm] (10/11/16 2:53 PM) Heart Rate Monitored 82 bpm [60-100 bpm] (10/11/16 4:00 PM) Respiratory Rate 16 br/min [14-20 br/min] (10/11/16 2:53 PM) Blood Pressure 133/77 mmHg [90-140/60-90 mmHg] (10/11/16 4:00 PM) Mean Arterial 97 mmHg Pressure, Cuff (10/11/16 4:00 PM) SpO2 95 % (10/11/16 4:00 PM) Problem List Condition Effective Dates Status [...] Mild Active Reglan Jittery Mild Active Medications Calcium [...] 0 Refill(s) Start Date: 09/06/14 Status: Ordered ProAir HFA 90 mcg/inh inhalation [...] No data available for this section Immunizations Given and Recorded Vaccine Date Status Refusal Reason tetanus-diphth toxoids (Td) adult/adol 07/02/04 Given Procedures Procedure Date Related Diagnosis Body Site Craniotomy Insertion of Port-a-cath Shoulder repair Total knee replacement1 1right total knee replacement Social History Social History Type Response Smoking Status Never smoker Assessment and Plan No data available for this section
--- OUTSIDE RECORDS SUMMARY | 2017-03-12 00:04 | XMS REPORT ---
Author Author Brittani Patricia [facility] eClinicalWorks Address Unknown Phone Unavailable Care Team Providers Care Administrative Technician Name Role Phone Brittani Patricia CP Unavailable Allergies, Adverse Reactions, Alerts Substance Reaction Event Type Reglan Info Not Available Drug Allergy Prochlorperazine Info Not Available Drug Allergy Morphine Sulfate nausea Drug Allergy Inapsine Info Not Available Drug Allergy seasonal Info Not Available Non Drug Allergy Problems Problem Type Condition ICD-9 Code Onset Dates Condition Status Assessment Swelling, mass, or lump in head and neck 784.2 Active Assessment Allergic rhinitis, cause unspecified 477.9 Active Problem Acute frontal sinusitis 461.1 Active Assessment Lumbago 724.2 Active Problem Localized osteoarthrosis not specified whether primary or secondary, lower leg 715.36 Active Problem Obesity, unspecified 278.00 Active Problem Malignant neoplasm of prostate 185 Active Problem Acute sinusitis, unspecified 461.9 Active Problem Encounter for removal of sutures V58.32 Active Problem Allergic rhinitis, cause unspecified 477.9 Active Problem Swelling, mass, or lump in head and neck 784.2 Active Problem Acute maxillary sinusitis 461.0 Active Problem Essential hypertension, benign 401.1 Active Problem Lumbago 724.2 Active Problem Degeneration of lumbar or lumbosacral intervertebral disc 722.52 Active Problem Acute bronchitis 466.0 Active Problem Spasm of muscle 728.85 Active Problem Pain in joint, lower leg 719.46 Active Problem Pain in soft tissues of limb 729.5 Active Problem Nonspecific abnormal electrocardiogram (ECG) (EKG) 794.31 Active Problem Unspecified pre-operative examination V72.84 Active Problem 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 Active Problem Hypertrophy (benign) of prostate without urinary obstruction and other lower urinary tract symptoms [LUTS] 600.00 Oct 13, 2010 Active Problem Headache 784.0 Active Problem Giant cell arteritis 446.5 Active Problem Chronic pancreatitis 577.1 Active Problem Sprain and strain of other specified sites of knee and leg 844.8 Active Medications Medication Code System Code Instructions Start Date End Date Status Dosage Cetirizine HCl [facility] [address]-60 10 MG Orally qhs Sep 07, 2014 March 06, 2015 Active 1 tablet Potassium Chloride [facility] [address]-94 20 MEQ Orally Three times a day Active 1 capsule Amlodipine Besylate [facility] [address]-63 10 MG Orally Once a day Active take one tablet by mouth daily Mucinex [facility] [address]-90 600 MG Orally every 12 hrs, take with plenty of water January 29, 2014 Active 1 tablet as needed Soma [facility] [address]-28 350 MG Orally twice a day January 29, 2014 Dec 08, 2014 Active 1 tablet as needed [place] [facility] [address]-83 10-325 MG Orally every 6 hrs Active 1 tablet as needed Zometa [facility] [address]-59 4 MG/5ML Intravenous Active as directed Hydrochlorothiazide [facility] [address]-58 25 MG Orally Once a day January 05, 2013 Active 1 tablet Flonase [facility] [address]-19 50 MCG/ACT Nasally bid Sep 07, 2014 Active 1 spray in each nostril Casodex [facility] [address]-66 50 MG Orally Once a day Active 1 tablet Lupron Depot [facility] [address]-96 45 MG Intramuscular Active as directed ProAir HFA [facility] [address]-37 108 (90 Base) MCG/ACT Inhalation every 4 hrs PRN wheezing January 05, 2013 Active 2 puffs as needed Calcium [facility] [address]-64 400-133.3 Orally Active 1 PO daily Procedures Procedure Coding System Code Date Office Visit, Est Pt., Level 3 CPT-4 51852 Sep 07, 2014 Vital Signs Date/Time: Sep 07, 2014 BMI 38.74 Index Weight 270 lbs Height 70 in Blood Pressure Diastolic 84 mm Hg Blood Pressure Systolic 149 mm Hg Temperature 99.6 F Cardiac Monitoring Heart Rate 93 /min Results No Known Results Summary Purpose eClinicalWorks Submission
--- OUTSIDE RECORDS SUMMARY | 2017-03-12 00:04 | XMS REPORT | Referral Summary ---
Author Author [facility] Organization [facility] Address Unknown Phone Unavailable Care Team Providers Care Pottery Machine Operator Name Role Phone [facility] Primary Care Physician Unavailable Encounter [facility] [id number] Date(s): 07/28/16 - 07/28/16 [facility] [address] [place] [address] [phone] Discharge Diagnosis: Hypertension Discharge Diagnosis: Hyperglycemia Discharge Diagnosis: Hypokalemia Discharge Diagnosis: Headache Discharge Disposition: 01-Home or Self Care Attending Physician: Winsome Wynn MD Admitting Physician: Winsome Wynn MD Vital Signs Most recent to 1 oldest [Reference Range]: Temperature Oral 36.8 degC [35.8-37.3 degC] (07/28/16 5:53 PM) Peripheral Pulse 81 bpm Rate [60-100 bpm] (07/28/16 8:22 PM) Heart Rate Monitored 73 bpm [60-100 bpm] (07/28/16 11:18 PM) Respiratory Rate 18 br/min [14-20 br/min] (07/28/16 9:20 PM) Blood Pressure 136/91 mmHg [90-140/60-90 mmHg] (07/28/16 11:18 PM) Mean Arterial 107 mmHg Pressure, Cuff (07/28/16 11:18 PM) SpO2 98 % (07/28/16 11:18 PM) Problem List Condition Effective Dates Status [...] 0 Refill(s) Start Date: 07/01/16 Status: Ordered [place] 10 mg-325 mg oral tablet tabs, Oral, [...] to 1 oldest [Reference Range]: WBC [4.8-10.8 13.8 10*3/uL 10*3/uL] *HI* (07/28/16 6:19 PM) RBC [4.60-6.20] 5.00 (07/28/16 6:19 PM) Hgb [14.0-18.0 15.3 gm/dL gm/dL] (07/28/16 6:19 PM) Hct [42.0-52.0 %] 40.5 % *LOW* (07/28/16 6:19 PM) MCV [82.0-99.0 fL] 81.0 fL *LOW* (07/28/16 6:19 PM) MCH [27.0-32.0 pg] 30.6 pg (07/28/16 6:19 PM) MCHC [32.0-36.0 37.8 gm/dL gm/dL] *HI* (07/28/16 6:19 PM) RDW [11.5-14.5 %] 12.4 % (07/28/16 6:19 PM) Platelet [150-400 192 10*3/uL 10*3/uL] (07/28/16 6:19 PM) MPV [9.4-12.3 fL] 11.1 fL (07/28/16 6:19 PM) Immature 0.4 % Granulocytes (07/28/16 6:19 PM) [0.0-1.0 %] Neutrophils [51-75 57 % %] (07/28/16 6:19 PM) Lymphocytes [20-46 33 % %] (07/28/16 6: PM) Monocytes [4-11 %] 9 % (07/28/16 6:19 PM) Eosinophils [0-4 %] 1 % (07/28/16 6:19 PM) Basophils [0-2 %] 0 % (07/28/16:19 PM) Neutro Absolute 7.91 10*3 [1.90-7.00 10*3] *HI* (07/28/16 6:19 PM) Lymph Absolute 4.53 10*3 [0.80-3.30 10*3] *HI* (07/28/16 6:19 PM) [place] Absolute 1.24 10*3 [0.30-1.00 10*3] *HI* (07/28/16 6:19 PM) Eos Absolute 0.09 10*3 [0.00-0.50 10*3] (07/28/16 6:19 PM) Baso Absolute 0.02 10*3 [0.00-0.20 10*3] (07/28/16 6:19 PM) Nucleated RBC 0.7 /100 WBC Automated [0 /100 (07/28/16 6:19 PM) WBC] Differential Scanned Slide (07/28/16: PM) Chemistry Most recent to 1 oldest [Reference Range]: Sodium Lvl [136-144 135 mEq/L mEq/L] *LOW* (07/28/16 6:19 PM) Potassium Lvl 2.6 mEq/L [3.6-5.1 mEq/L] *LOW* (07/28/16 PM) Chloride [99-109 103 mEq/L mEq/L] (07/28/16 PM) CO2 [22-32 mEq/L] 22 mEq/L (07/28/16 PM) AGAP [3-20] 10 (07/28/16: PM) BUN [4-20 mg/dL] 9 mg/dL (07/28/16: PM) Glucose Lvl [70-100 169 mg/dL mg/dL] *HI* (07/28/16 PM) Creatinine Lvl 0.78 mg/dL [0.64-1.27 mg/dL] (07/28/16 PM) eGFR [>60] >60 1 (07/28/16 PM) Calcium Lvl 8.8 mg/dL [8.6-10.0 mg/dL] (07/28/16 PM) Albumin Lvl [3.5-4.8 4.1 gm/dL gm/dL] (07/28/16 PM) Total Protein 7.1 gm/dL [6.1-7.9 gm/dL] (07/28/16: PM) Globulin [1.9-4.3 3.0 gm/dL gm/dL] (07/28/16 PM) ALT [17-63 U/L] 52 U/L (07/28/16: PM) AST [15-41 U/L] 43 U/L *HI* (07/28/16 PM) Alk Phos [26-104 94 U/L U/L] (07/28/16 PM) Bili Total [0.2-1.2 0.9 mg/dL 2 mg/dL] (07/28/16 PM) Troponin [<0.06 <0.05 ng/mL ng/mL] (07/28/16 PM) 1Result Comment: Multiply eGFR results by 1.21 [...]
--- OUTSIDE RECORDS SUMMARY | 2017-03-12 00:04 | XMS REPORT ---
Author Christi Wren Organization eClinicalWorks Address Unknown Phone Unavailable Care Team Providers Care Soda Column Operator Name Role Phone Christi Fournier CP [...] Acute bronchitis 466.0 Active Assessment Pain in joint, lower leg 719.46 Active Problem Pain in joint, lower leg [...] Date End Date Status [facility]os[facility] [address]-73 108 (90 Base) MCG/ACT Inhalation every 4 hrs PRN wheezing January 05, 2013 Active 2 puffs as needed Hydrochlorothiazide [facility] [address]-34 25 MG Orally Once a day December Active 1 tablet Potassium Chloride [facility] [address]-93 20 MEQ Orally Three times a day Active 1 capsule Casodex [facility] [address]-58 50 MG Orally Once a day Active 1 tablet Mucinex [facility] [address]-60 600 MG Orally every 12 hrs, take with plenty of water January 29, 2014 Active 1 tablet as needed Amlodipine Besylate [facility] [address]-71 10 MG Orally Once a day Active take one tablet by mouth daily Vega [facility] [address]-79 10-325 MG Orally every 6 hrs Active 1 tablet as needed Zometa [facility] [address]-93 4 MG/5ML Intravenous Active as directed Lupron Depot [facility] [address]-80 45 MG Intramuscular Active as directed Soma [facility] [address]-82 350 MG Orally twice a day January 29, 2014 Dec 08, 2014 Active 1 tablet as needed Calcium [facility] [address]-16 400-133.3 Orally Active 1 PO daily Procedures Procedure Coding System Code Date Office Visit, Est Pt., Level 3 CPT-4 72316 Jun 11, 2014 Vital Signs Date/Time: Jun 11, 2014 Weight 255.0 lbs Height 70 in Blood Pressure Diastolic 92 mm Hg Blood Pressure Systolic 147 mm Hg Temperature 97.6 F Cardiac Monitoring Heart Rate 76 /min Results No Known Results Summary Purpose eClinicalWorks Submission
--- OUTSIDE RECORDS SUMMARY | 2017-03-12 00:04 | XMS REPORT ---
Author Maco Simpson [facility] eClinicalWorks Address Unknown Phone Unavailable Care Team Providers Care Cell Pourer Name Role Phone Maco Mason CP Unavailable Allergies, Adverse Reactions, Alerts Substance Reaction Event Type Reglan Info Not Available Drug Allergy Prochlorperazine Info Not Available Drug Allergy Morphine Sulfate nausea Drug Allergy Inapsine Info Not Available Drug Allergy seasonal Info Not Available Non Drug Allergy Problems Problem Type Condition Code Onset Dates Condition Status Assessment Essential (primary) hypertension I10 Active Assessment Obesity, unspecified E66.9 Active Assessment Type 2 diabetes mellitus without complications E11.9 Active Assessment Other fatigue R53.83 Active Problem Degeneration of lumbar or lumbosacral [...] Instructions Start Date End Date Status Dosage Lupron Depot [facility] [address]-88 45 MG Intramuscular as directed Casodex [facility] [address]-41 50 MG Orally Once a day 1 tablet Mucinex [facility] [address]-00 600 MG Orally every 12 hrs, take with plenty of water January 29, 2014 1 tablet as needed OxyContin [facility] [address]-61 20 MG Orally every 12 hrs 1 tablet Xgeva [facility] [address]-17 120 MG/1.7ML Subcutaneous every three months 1.7 ml True Metrix Meter [facility] [address] w/Device in vitro check BID Jun 18, 2016 as directed Clonidine HCl [facility] 41727382295 0.1 MG Orally Once a day 1 tablet Amlodipine Besylate [facility] [address]-73 10 MG Orally Once a day take one tablet by mouth daily Flonase [facility] [address]-50 50 MCG/ACT Nasally bid Sep 07, 2014 1 spray in each nostril Levemir FlexTouch [facility] [address]-10 100 UNIT/ML Subcutaneous QHS March 02, 2016 20 units True Metrix Blood Glucose Test [facility] [address]41 1 In Vitro twice a day Jun 16, 2016 as directed Calcium [facility] [address]-42 400-133.3 Orally 1 PO daily Lisinopril [facility] [address]-95 40 MG Orally Once a day December 30, 2015 1 tablet Gabapentin [facility] [address]-39 300 MG Orally BID May 01, 2015 1 capsule ProAir HFA [facility] [address]-67 108 (90 Base) MCG/ACT Inhalation every 4 hrs PRN wheezing January 05, 2013 2 puffs as needed Lancets Misc. [facility] 0 1 test twice daily Aug 05, 2015 as directed Hydrochlorothiazide [facility] 76048278459 25 MG Orally Once a day 1 tablet Metformin HCl [facility] [address]-43 500 MG Orally Twice a day Aug 01, 2015 1 tab Glucose Blood [facility] [address]-23 1 In Vitro test BID April 23, 2016 as directed [place] [facility] [address]-50 10-325 MG Orally every 6 hrs 1 tablet as needed Ultra-Thin II Mini Pen Needle [facility] [address]2402 31G X 5 MM SQ QHS Aug 05, 2015 as directed Tradcharlottenta [facility] [address]-68 5 MG Orally Once a day Aug 05, 2015 1 tablet Procedures Procedure Coding System Code Date VITAMIN B-12 CPT-4 08670 Jul 14, 2016 ASSAY THYROID STIM HORMONE CPT-4 69129 Jul 14, 2016 COMPLETE CBC, AUTOMATED CPT-4 90353 Jul 14, 2016 Office Visit, Est Pt., Level 4 CPT-4 45912 Jul 14, 2016 GLYCATED HEMOGLOBIN TEST CPT-4 18022 Jul 14, 2016 Vital Signs Date/Time: Jul 14, 2016 BMI 36.62 Index Weight 255 lb 4 oz lbs Height 70 in Blood Pressure Diastolic 83 mm Hg Blood Pressure Systolic 152 mm Hg Temperature 97.6 F Cardiac Monitoring Heart Rate 91 /min Results No Known Results Summary Purpose eClinicalWorks Submission
--- OUTSIDE RECORDS SUMMARY | 2017-03-12 00:04 | XMS REPORT ---
Author Author Katrin Olvera eClinicalWorks Address Unknown Phone Unavailable Care Team Providers Care Food Service Steward Name Role Phone Katrin Olvera Unavailable Allergies, [...] Encounter for removal of sutures V58.32 Active Assessment Polydipsia R63.1 Active Problem Impaired fasting glucose R73.01 Active Problem Malignant neoplasm of prostate 185 Active Assessment Localized swelling, mass and lump, trunk R22.2 Active Problem Localized superficial swelling, mass, or [...] in joint, lower leg 719.46 Active Assessment Impaired fasting glucose R73.01 Active Problem Spasm of muscle 728.85 Active Problem Obesity, unspecified 278.00 Active Problem Acute bronchitis 466.0 Active Assessment Other polyuria R35.8 Active Problem Lumbago 724.2 Active Assessment Cellulitis and abscess of mouth K12.2 Active Problem Lipoma of other skin and subcutaneous tissue 214.1 Active Problem Swelling, mass, or lump in head and neck 784.2 Active Problem Allergic rhinitis, cause unspecified 477.9 Active Medications Medication Code System Code Instructions Start Date End Date Status Dosage Calcium [facility] [address]-12 400-133.3 Orally 1 PO daily Lupron Depot [facility] [address]-39 45 MG Intramuscular as directed Mucinex [facility] [address]-54 600 MG Orally every 12 hrs, take with plenty of water January 29, 2014 1 tablet as needed Flonase [facility] [address]-52 50 MCG/ACT Nasally bid Sep 07, 2014 1 spray in each nostril Gabapentin [facility] [address]-36 300 MG Orally BID May 01, 2015 1 capsule Casodex [facility] [address]-13 50 MG Orally Once a day 1 tablet Augmentin [facility] [address]-49 500-125 MG Orally Twice a day Aug 01, 2015 Aug 11, 2015 1 tablet Metformin HCl [facility] [address]-43 500 MG Orally Twice a day Aug 01, 2015 Start 1 tab daily for 7 days, then 1 tabe BID 7 days, then 2 tabs BID Zometa [facility] [address]-13 4 MG/5ML Intravenous as directed Potassium Chloride [facility] [address]-05 20 MEQ Orally Three times a day 1 capsule Clonidine HCl [facility] [address]-60 0.1 MG Orally Once a day May 01, 2015 1 tablet ProAir HFA [facility] [address]-75 108 (90 Base) MCG/ACT Inhalation every 4 hrs PRN wheezing January 05, 2013 2 puffs as needed True Result Glucometer ND 0 . . As directed Aug 01, 2015 Aug 02, 2015 . Glucose Blood NDC 0 1 SQ BID prn Aug 01, 2015 as directed Hydrochlorothiazide [facility] [address]-61 25 MG Orally Once a day January 05, 2013 1 tablet Amlodipine Besylate [facility] [address]-78 10 MG Orally Once a day take one tablet by mouth daily [place] [facility] [address]-81 10-325 MG Orally every 6 hrs 1 tablet as needed Procedures Procedure Coding System Code Date URINALYSIS, AUTO, W/O SCOPE CPT-4 31971 Aug 01, 2015 COMPLETE CBC W/AUTO DIFF WBC CPT-4 78017 Aug 01, 2015 REAGENT STRIP/BLOOD GLUCOSE CPT-4 74668 Aug 01, 2015 GLYCATED HEMOGLOBIN TEST CPT-4 56281 Aug 01, 2015 COMPREHEN METABOLIC PANEL CPT-4 46024 Aug 01, 2015 Office Visit, Est Pt., Level 3 CPT-4 53310 Aug 01, 2015 Vital Signs Date/Time: Aug 01, 2015 BMI 36.06 Index Weight 251 lb 6 oz lbs Height 70 in Blood Pressure Diastolic 95 mm Hg Blood Pressure Systolic 140 mm Hg Temperature 97.2 F Cardiac Monitoring Heart Rate 83 /min Results Name Result Date Reference Range Unit Abnormality Flag Urinalysis (UA) (GM) Summary Purpose eClinicalWorks Submission
--- OUTSIDE RECORDS SUMMARY | 2017-03-12 00:04 | XMS REPORT ---
Author Author Katrin Olvera [facility] eClinicalWorks Address Unknown Phone Unavailable Care Team Providers Care Electric Operator Name Role Phone Katrin Olvera Unavailable [...]
--- OUTSIDE RECORDS SUMMARY | 2017-03-12 00:05 | XMS REPORT | Continuity of Care Document ---
Author Author [facility] Organization [facility] Address Unknown Phone Unavailable Support Name Relationship Address Phone MARISSA HAIR MD Caregiver [address] [place] [phone] SHAR KENT MD Caregiver [address] [place] [phone] [facility] Next Of Kin [address] [place], [place] [address] Insurance Providers Payer Name Policy Number Subscriber Name Relationship [facility] [employer] [facility] [id number] Weston Puente Jr 17 Self Advance Directives Directive Response Recorded Date/Time Advanced Directives Type None 12/21/14 6:50pm Problems Medical Problems Problem Onset Date Status Swelling of upper extremity 12/21/2014 Active Pain of left upper extremity Unknown Active Left upper extremity swelling Unknown Active Pain of left upper extremity Unknown Active Medications Medication Dose Route Sig Days/Qty Instructions Order Date Discontinued Date Status Amlodipine Besylate 10 Mg PO DAILY 12/06/10 Active Calcium Carbonate/Vitamin D3 1 Udtab PO DAILY 01/01/14 Active Bicalutamide 50 Mg PO DAILY 01/01/14 Active Clonidine Hcl 0.1 Mg PO DAILY 01/01/14 Active Furosemide 40 Mg PO DAILY 01/01/14 Active Hydrochlorothiazide 25 Mg PO DAILY 01/01/14 Active Hydrocodone Bit/Acetaminophen 1 Tab PO NEEDED 01/01/14 Active Oxycodone Hcl 10 Mg PO TWICE A DAY 01/01/14 01/01/14 Discontinued Oxycodone Hcl 50 Mg PO TWICE A DAY 01/01/14 Active Potassium Chloride 20 Meq PO TWICE A DAY 01/01/14 Active Promethazine Hcl 12.5 Mg PO NEEDED 01/01/14 Active Tramadol Hcl 50 Mg PO NEEDED 01/01/14 Active Zoledronic Acid 4 Mg IV MONTHLY 01/01/14 Active Leuprolide Acetate 45 Mg IM EVERY 6 MONTHS 01/01/14 Active Hydromorphone HCl 1 Tab-Cap PO EVERY 4 HOURS For PAIN 20 Qty 12/21/14 Active Social History Social History Problem Response Recorded Date/Time Chewing Tobacco Status No 12/21/2014 7:44pm Hx Substance Use No 12/21/2014 7:44pm Hx Alcohol Use No 12/21/2014 7:44pm Has the pt used tobacco in the last 12 months No 01/01/2014 3:54pm Tobacco Usage none 01/03/2014 4:19pm Query Response Start Date Stop Date Smoking Status Former smoker Hospital Discharge Instructions No hospital discharge instructions. Plan of Care No plan of care. Functional Status Query Response Date Recorded Physical Hygiene Self December 21, 2014 7:44pm Disabilities Visual December 21, 2014 7:44pm Devices Used Glasses None December 21, 2014 7:44pm Dressing Self December 21, 2014 7:44pm Ambulation Self December 21, 2014 7:44pm Diet Self December 21, 2014 7:44pm Mental Status Alert Oriented December 21, 2014 9:46pm Disabilities Visual December 21, 2014 7:44pm Devices Used Glasses None December 21, 2014 7:44pm Physical Hygiene Self December 21, 2014 7:44pm Dressing Self December 21, 2014 7:44pm Ambulation Self December 21, 2014 7:44pm Diet Self December 21, 2014 7:44pm Allergies, Adverse Reactions, Alerts Allergen Type Severity Reaction Status Last Updated Prochlorperazine Allergy Unknown Active 12/21/14 Droperidol Allergy Unknown Active 12/21/14 Metoclopramide Allergy Unknown Active 12/21/14 Immunizations Name Given Type Hx Influenza Vaccination No Historical Hx Pneumococcal Vaccination No Historical Hx Influenza Vaccination No Historical Vital Signs Acute Vital Signs Vital Response Date/Time Temperature (Fahrenheit) 97.2 deg F (96.8 - 99.1) Temperature (Calculated Celsius) 36.76436 degrees C (36.0 - 37.3) Pulse Rate (adult) 80 bpm (60 - 100) Respiratory Rate 16 breaths/min (10 - 20) O2 Sat by Pulse Oximetry 97 % (90 - 100) Blood Pressure 142/84 mm Hg Height 5 ft 9 in Weight 266 lb Body Mass Index 39.0 kg/m^2 Results Test Source Date Result Interp. Ref. Range Comments Monocytes # (Manual) December 21, 2014 7:37pm 0.3 T/MM3 N 0-0.8 Lymphocytes # (Manual) December 21, 2014 7:37pm 3.1 T/MM3 N 1-4.8 Neutrophils # (Manual) December 21, 2014 7:37pm 4.7 T/MM3 N 1.8-7.7 Monocytes % (Manual) December 21, 2014 7:37pm 4.0 % N 0-9.0 Lymphocytes % (Manual) December 21, 2014 7:37pm 38.0 % N 23-45 Neutrophils % (Manual) December 21, 2014 7:37pm 58.0 % N 33-66 Red Cell Morphology Comment December 21, 2014 7:37pm Normal - Activated Partial Thromboplast Time December 21, 2014 7:37pm 32.9 SEC N 24- 36 Prothromb Time International Ratio December 21, 2014 7:37pm 0.95 N 0.81- 1.09 THERAPUTIC RANGE=2.00-3.00 FOR ANTI-THROMBOSIS THERAPUTIC RANGE=2.50- 3.50 FOR IMPLANTED VALVE Alanine Aminotransferase (ALT/SGPT) December 21, 2014 7:37pm 41 U/L N 21- 72 Albumin December 21, 2014 7:37pm 4.0 G/DL N 3.5-5.0 Albumin/Globulin Ratio December 21, 2014 7:37pm 1.4 RATIO N 1.1-2.2 Alkaline Phosphatase December 21, 2014 7:37pm 114 U/L N 38-126 Anion Gap December 21, 2014 7:37pm 14 MEQ/L N 5-15 Aspartate Amino Transf (AST/SGOT) December 21, 2014 7:37pm 29 U/L N 17-59 BUN/Creatinine Ratio December 21, 2014 7:37pm 14 RATIO N 6-26 Basophils # (Auto) January 03, 2014 4:30am 0.0 T/MM3 N 0-0.2 Basophils (%) (Auto) January 03, 2014 4:30am 0.5 % N 0-2 Blood Urea Nitrogen December 21, 2014 7:37pm 13.0 MG/DL N 9-20 Calcium Level December 21, 2014 7:37pm 9.3 MG/DL N 8.4-10.2 Calculated Osmolality December 21, 2014 7:37pm 281 MOSM/KG H 261-280 Carbon Dioxide Level December 21, 2014 7:37pm 24 MEQ/L N 22-30 Chemistry Specimen Hemolysis December 21, 2014 7:37pm < 15 0-25 0-25: No Hemolysis.26-70: Slight Hemolysis - can falsely elevate K and Urine Protein. 71-285: Moderate Hemolysis - can falsely elevate K, Troponin I, CA 19-9, PTH, CSF GLucose, and Urine Protein, and can falsely decrease Phenytoin. 286-999: Gross Hemolysis - can falsely elevate K, Troponin I, CA 19-9, PTH, CSF Glucose, and Urine Protine, and can falsely decrease Phenytoin. Recommend specimen recollection. Chloride Level December 21, 2014 7:37pm 105 MEQ/L N 98-107 Creatinine December 21, 2014 7:37pm 0.9 MG/DL N 0.8-1.5 D-Dimer December 21, 2014 7:37pm < 150 NG/ML 0-230 <230 NG/ML D-DU= PRESUMPTIVE NEGATIVE FOR PE OR DVT>230 NG/ML D-DU=ADDITIONAL EVAL FOR PE OR DVT RECOMMENDED Eosinophils # (Auto) January 03, 2014 4:30am 0.2 T/MM3 N 0-0.5 Eosinophils (%) (Auto) January 03, 2014 4:30am 4.2 % H 0-4 Globulin December 21, 2014 7:37pm 2.9 G/DL N 2.4-3.6 Glomerular Filtration Rate Calc December 21, 2014 7:37pm 88 - Glucose Level December 21, 2014 7:37pm 198 MG/DL H 75-110 Hematocrit December 21, 2014 7:37pm 37.9 % L 41-53 Hemoglobin December 21, 2014 7:37pm 13.3 GM/DL L 13.5-17.5 Icterus Index December 21, 2014 7:37pm < 2 0-7 Immature Granulocyte # (Auto) January 03, 2014 4:30am 0.01 T/MM3 N 0.00- 0.03 Immature Granulocyte % (Auto) January 03, 2014 4:30am 0.2 % N 0.0-0.5 Lab Scanned Report January 01, 2014 11:18am LAB TEST FORM REQUEST [id number] - Lactate Dehydrogenase January 01, 2014 9:30am 640 U/L H 313-618 Lymphocytes # (Auto) January 03, 2014 4:30am 1.8 T/MM3 N 1-4.8 Lymphocytes (%) (Auto) January 03, 2014 4:30am 33.3 % N 23-45 Magnesium Level January 01, 2014 9:30am 2.1 MG/DL N 1.6-2.3 Mean Corpuscular Hemoglobin December 21, 2014 7:37pm 30.1 UUG N 26-34 Mean Corpuscular Hemoglobin Concent December 21, 2014 7:37pm 35.1 GM/DL N 31-37 Mean Corpuscular Volume December 21, 2014 7:37pm 85.7 UM3 N 80-100 Mean Platelet Volume December 21, 2014 7:37pm 10.8 UM3 N 9.4-12.4 Monocytes # (Auto) January 03, 2014 4:30am 0.5 T/MM3 N 0-0.8 Monocytes (%) (Auto) January 03, 2014 4:30am 9.8 % H 0-9.0 Neutrophils # (Auto) January 03, 2014 4:30am 2.9 T/MM3 N 1.8-7.7 Neutrophils (%) (Auto) January 03, 2014 4:30am 52.0 % N 33-66 Platelet Count December 21, 2014 7:37pm 141 T/MM3 N 130-400 Potassium Level December 21, 2014 7:37pm 3.4 MEQ/L L 3.6-5 Prostate Specific Antigen January 01, 2014 9:30am < 0.06 NG/ML 0-4.0 RDW Standard Deviation December 21, 2014 7:37pm 37.7 FL N 36.9-50.2 Red Blood Count December 21, 2014 7:37pm 4.42 M/MM3 L 4.50-5.90 Sodium Level December 21, 2014 7:37pm 143 MEQ/L N 134-144 Total Bilirubin December 21, 2014 7:37pm 0.40 MG/DL N 0.20-1.30 Total Protein December 21, 2014 7:37pm 6.9 G/DL N 6.3-8.2 Turbidity December 21, 2014 7:37pm < 20 0-20 Urinalysis Comment January 01, 2014 11:30am Microscopic not ind. - Has specimen been collected/obtained? Y Urine Bilirubin January 01, 2014 11:30am Negative - Has specimen been collected/obtained? Y Urine Blood January 01, 2014 11:30am Negative - Has specimen been collected/obtained? Y Urine Collection Type January 01, 2014 11:30am Cleancatch-midstream - Has specimen been collected/obtained? Y Urine Color January 01, 2014 11:30am Yellow - Has specimen been collected/obtained? Y Urine Glucose (UA) January 01, 2014 11:30am Negative - Has specimen been collected/obtained? Y Urine Ketones January 01, 2014 11:30am Negative - Has specimen been collected/obtained? Y Urine Leukocyte Esterase January 01, 2014 11:30am Negative - Has specimen been collected/obtained? Y Urine Nitrite January 01, 2014 11:30am Negative - Has specimen been collected/obtained? Y Urine Protein January 01, 2014 11:30am Negative - Has specimen been collected/obtained? Y Urine Specific [place] January 01, 2014 11:30am 1.010 L - Has specimen been collected/obtained? Y Urine Turbidity January 01, 2014 11:30am Clear - Has specimen been collected/obtained? Y Urine Urobilinogen January 01, 2014 11:30am 0.2 EU/DL - Has specimen been collected/obtained? Y Urine pH January 01, 2014 11:30am 7.5 - Has specimen been collected/ obtained? Y White Blood Count December 21, 2014 7:37pm 8.1 T/MM3 N 4.5-11.0 Procedures No known history of procedures. Encounters Encounter Location Date/Time Departed Emergency Room [facility] 12/21/14 6:33pm Recent Diagnosis
--- OUTSIDE RECORDS SUMMARY | 2017-03-12 00:05 | XMS REPORT | Referral Summary ---
Author Author [facility] Organization [facility] Address Unknown Phone Unavailable Care Team Providers Care Car Hopper Name Role Phone [facility] Primary Care Physician Unavailable Encounter [facility] [id number] Date(s): 12/17/15 - 12/17/15 [facility] [address] [place] [address] [phone] Discharge Diagnosis: Chronic left shoulder pain Discharge Disposition: 01-Home or Self Care Attending Physician: Alejandro Pena MD Admitting Physician: Alejandro Pena MD Vital Signs Most recent to 1 oldest [Reference Range]: Temperature Tympanic 36.4 degC [36.6-38.1 degC] *LOW* (12/17/15 5:10 AM) Peripheral Pulse 97 bpm Rate [60-100 bpm] (12/17/15 6:08 AM) Respiratory Rate 22 br/min [14-20 br/min] *HI* (12/17/15 5:10 AM) Blood Pressure 139/110 mmHg [90-140/60-90 mmHg] (12/17/15 6:08 AM) SpO2 97 % (12/17/15 6:08 AM) Problem List Condition Effective Dates Status [...] 0 Refill(s) Start Date: 05/16/14 Status: Ordered [place] 10 mg-325 mg oral tablet tabs, Oral, [...]
--- OUTSIDE RECORDS SUMMARY | 2017-03-12 00:05 | XMS REPORT ---
Author Author ScottgilbertCarmella harman [facility] Address [address] [place] [address] Care Team Providers Care Shipping And Receiving Associate Name Role Phone Carmella Nunez Unavailable [phone] PROBLEMS Type Condition ICD9-CM Code SBP37-IS Code Onset Dates Condition Status SNOMED Code Problem Malignant neoplasm of prostate 185 Active 274814389 Problem Localized osteoarthrosis not specified whether primary or secondary, lower leg 715.36 Active 80083905 Problem Pain in soft tissues of limb 729.5 Active 70269640 Problem Spasm of muscle 728.85 Active 97139960 Problem Allergic rhinitis, cause unspecified 477.9 Active 34596091 Problem Lipoma of other skin and subcutaneous tissue 214.1 Active 544333598 Problem Pain in joint, shoulder region 719.41 Active 695414390 Problem Other acute pain 338.19 Active 649941215 Problem 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 Problem Essential hypertension, benign 401.1 Active 3125763 Problem Localized superficial swelling, mass, or lump 782.2 Active 749351914 Problem Chronic pain syndrome G89.4 Active 387217709 Problem 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 Active Problem Wedge compression fracture of unspecified lumbar vertebra, subsequent encounter for fracture with nonunion S32.000K Active 839289820 Problem Localized adiposity E65 Active 375928510 Problem Essential (primary) hypertension I10 Active 66270245 Problem Complete rotator cuff tear or rupture of left shoulder, not specified as traumatic M75.122 Active 220335752 Problem Malignant neoplasm of prostate C61 Active 000158839 Problem Pain in right wrist M25.531 Active 91794169 Problem Essential (primary) hypertension I10 Active 21921439 Problem Other obesity E66.8 Active 352251537 Problem Personal history of malignant neoplasm of prostate Z85.46 Active 681143902 Problem Type 2 diabetes mellitus without complications E11.9 Active 770798786 Problem Stiffness of unspecified shoulder, not elsewhere classified M25.619 Active Problem 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, 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 Active Problem Chronic pancreatitis 577.1 Active 729785884 Problem Regular astigmatism, bilateral H52.223 Active 04652808 Problem Giant cell arteritis 446.5 Active 074410389 Problem Age-related nuclear cataract, bilateral H25.13 Active 564712733 Problem Degeneration of lumbar or lumbosacral intervertebral disc 722.52 Active 96793374 Problem Pain in left shoulder M25.512 Active 596084703 Problem 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 Active 61903437224881476 Problem Presbyopia H52.4 Active 32440538 Problem 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 704794963 Assessment Type 2 diabetes mellitus with diabetic nephropathy E11.21 Jan, Active 881917827 Problem Chronic kidney disease, stage 1 N18.1 Active 834263192 Problem Type 2 diabetes mellitus with hyperglycemia E11.65 Active 579446106036370 Problem Pain in right knee M25.561 Active 394938888997771 ALLERGIES Substance Reaction Event Type Date Status [...] Pending Test COMPREHENSIVE METABOLIC PANEL Pending Test HEMOGLOBIN A1c Pending Test CBC (INCLUDES DIFF/PLT) Pending Test LIPID PANEL 6 Weeks,Reason: VITAL SIGNS Height 70 in 2017-02-08 Weight 274 lbs 2017-02-08 BMI 39.31 kg/m2 2017-02-08 Heart Rate 83 /min 2017-02-08 Temperature 98.3 degrees Fahrenheit 2017-02-08 Blood pressure systolic 128 mm Hg 2017-02-08 Blood pressure diastolic 89 mm Hg 2017-02-08 MEDICATIONS Medication Instructions Dosage Frequency Start Date End Date Duration Status True Metrix Meter w/Device in vitro check BID as directed Jun, 30 days Active Levemir FlexTouch 100 UNIT/ML Subcutaneous QHS 20 units February, 30 days Active Promethazine HCl 12.5 TAKE 1 TABLET BY MOUTH EVERY 6 HOURS NEEDED 8 Active Lupron Depot 45 MG as directed Active Clonidine HCl 0.1 MG Orally Once a day 1 tablet 24h 30 Active Xgeva 120 MG/1.7ML Subcutaneous every three months 1.7 ml Active Glucose Blood 1 In Vitro test BID as directed Apr, 30 Active Ultra-Thin II Mini Pen Needle 31G X 5 MM / Dx Code: E11.65 SQ QHS as directed Jul, 90 days Active Calcium 400-133.3 1 PO daily Active Lortab 7.5-325 MG Orally every 6 hrs 1 tablet as needed 6h Active Lancets Misc. 1 as directed Jul, 30 days Active Gabapentin 300 MG Orally BID 1 capsule 12h Apr, 90 days Active Tradjenta 5 MG Orally Once a day 1 tablet 24h 22 Nov, 2016 90 days Active TRUEplus Lancets 30G 0 USE TO TEST TWICE DAILY 31 Active Amlodipine Besylate 10 MG Orally Once a day take one tablet by mouth daily 24h 90 Active Mucinex 600 MG Orally every 12 hrs, take with plenty of water 1 tablet as needed Jan, Active Casodex 50 MG Orally Once a day 1 tablet 24h 30 day(s) Active Blood Glucose Monitor System One touch ultra mini as directed 12oct 30 Active Hydrochlorothiazide 50 MG 1 TABLET ONCE A DAY ORALLY 90 90 Active Metformin HCl 500 MG Orally Twice a day 1 tab 12h 90 Active Soma 350 MG Orally Four times a day 1 tablet as needed 6h Active Lisinopril 40 MG Orally Once a day 1 tablet 24h 14 Dec, 2015 90 Active Lancets as directed Aug, Active Flonase 50 MCG/ACT Nasally Once a day 1 puff in each nostril 24h Sep, 30 day(s) Active Levemir FlexTouch 100 UNIT/ML Subcutaneous QHS 20 units 30 days Active One Touch Mini Strips Bottle of 50 strips As directed 12Oct, 30 Active ProAir HFA 108 (90 Base) MCG/ACT Inhalation every 4 hrs PRN wheezing 2 puffs as needed 30 Active True Metrix Blood Glucose Test 1 Dx code E11.65 In Vitro twice a day as directed 12h May, 30 Active True Result Test Strips as directed Aug, dx: 250.00 Active RESULTS No Results PROCEDURES Procedure Date Ordered Related Diagnosis Body Site COMPLETE CBC W/AUTO DIFF WBC February 08, 2017 COMPREHEN METABOLIC PANEL February 08, 2017 Office Visit, Est Pt., Level 4 February 08, 2017 ASSAY OF LIPOPROTEIN February 08, 2017 GLYCATED HEMOGLOBIN TEST February 08, 2017 ASSAY OF TRIGLYCERIDES February 08, 2017 ASSAY, BLD/SERUM CHOLESTEROL February 08, 2017 IMMUNIZATIONS No Known Immunizations
--- OUTSIDE RECORDS SUMMARY | 2017-03-12 00:05 | XMS REPORT ---
Author Author Dean Gannon Organization [employer] Address Unknown Phone Unavailable Care Team Providers Care Shoe Planner Name Role Phone Dean Gannon CP Unavailable [...]
--- OUTSIDE RECORDS SUMMARY | 2017-03-12 00:05 | XMS REPORT | Referral Summary ---
Author Organization Unknown Address Unknown Phone Unavailable Care Team Providers Care Wet Chemistry Analyst Name Role Phone [facility] Primary Care Physician Unavailable Encounter VC Date(s): 11/29/14 - 11/29/[address] [address] Discharge Diagnosis: Chronic pain Discharge Diagnosis: Low back pain Discharge Diagnosis: Shoulder pain Discharge Disposition: Home or Self Care Attending Physician: Scarlet Sanchez MD Admitting Physician: Khris Bone DO Vital Signs Most recent to 1 oldest [Reference Range]: Temperature Oral 37 degC [35.8-37.3 degC] (11/29/14 9:16 PM) Peripheral Pulse 84 bpm Rate [60-100 bpm] (11/29/14 11:18 PM) Heart Rate Monitored 86 bpm [60-100 bpm] (11/29/14 10:53 PM) Respiratory Rate 18 br/min [14-20 br/min] (11/29/14 11:18 PM) Blood Pressure 131/96 mmHg [90-140/60-90 mmHg] (11/29/14 11:18 PM) Mean Arterial 107 mmHg Pressure, Cuff (11/29/14 10:53 PM) Most recent to 1 oldest [Reference Range]: SpO2 93 % (11/29/14 9:16 PM) Problem List Condition Effective Dates Status Health Status Informant Hypertension(Confirm Active patient ed) Prostate Active patient ca(Confirmed) Sarcoma(Confirmed) Active patient Allergies, Adverse Reactions, Alerts Substance Reaction Severity Status Compazine Active Inapsine Active Reglan Active Medications calcium carbonate 0 Refill(s) Start Date: 11/29/14 Status: Ordered Casodex mg, Oral, q24hr, 0 Refill(s) Start Date: 11/29/14 Status: Ordered cyclobenzaprine 10 mg oral tablet 1 tabs, Oral, TID, as needed for spasm, X 3 days, # 9 tabs, 0 Refill(s) Start Date: 11/29/14 Stop Date: 12/02/14 Status: Ordered Lasix Daily, 0 Refill(s) Start Date: 11/29/14 Status: Ordered Lupron Depot 30 mg/4 months intramuscular injection, extended release IntraMuscular, 0 Refill(s) Start Date: 11/29/14 Status: Ordered Soddy Daisy 10 mg-325 mg oral tablet tabs, Oral, q6hr, 0 Refill(s) Start Date: 11/29/14 Status: Ordered potassium bitartrate 0 Refill(s) Start Date: 11/29/14 Status: Ordered Zometa mg, IV, 0 Refill(s) Start Date: 11/29/14 Status: Ordered Results No data available for this section Immunizations No data available for this section Procedures No data available for this section Social History Social History Type Response Smoking Status Never smoker Assessment and Plan No data available for this section
--- OUTSIDE RECORDS SUMMARY | 2017-03-12 00:05 | XMS REPORT ---
Author Author Maco Mason Organization [employer] Address Unknown Phone Unavailable Care Team Providers Care Oncology Physician Name Role Phone Maco Mason CP Unavailable [...]
--- OUTSIDE RECORDS SUMMARY | 2017-03-12 00:05 | XMS REPORT ---
Author Author Christi Fournier Organization [employer] Address Unknown Phone Unavailable Care Team Providers Care Orthopedic Nurse Name Role Phone Christi Fournier Unavailable Allergies [...] Date End Date Status Dosage Amlodipine Besylate [facility] [address]-85 10 MG Orally Once a day Active take one tablet by mouth daily Vital Signs Date/Time: May 29, 2013 Weight 258.9 lbs Height 70 inches Blood Pressure Diastolic 98 mm Hg Blood Pressure Systolic 156 mm Hg Temperature 98.0 F Results No Known Results Summary Purpose [employer] Submission
--- OUTSIDE RECORDS SUMMARY | 2017-03-12 00:05 | XMS REPORT ---
Author Bret Dennison Organization [employer] Address Unknown Phone Unavailable Care Team Providers Care Yarn Finisher Name Role Phone Bret Olmedo CP Unavailable [...] Start Date End Date Status Dosage Lancets [facility] [id number] Sep 07, 2016 as directed True Result Test Strips ND 0 as directed Sep 07, 2016 as directed Results No Known Results Summary Purpose [employer] Submission
--- OUTSIDE RECORDS SUMMARY | 2017-03-12 00:05 | XMS REPORT ---
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 Active 08328711801517572 Problem Chronic pancreatitis 577.1 Active 701066587 Problem Giant cell arteritis 446.5 Active 851033118 Problem Localized osteoarthrosis not specified whether primary or secondary, lower leg 715.36 Active 08980592 Problem Pain in left shoulder M25.512 Active 586952578 Problem Malignant neoplasm of prostate 185 Active 863675529 Problem Presbyopia H52.4 Active 55672443 Problem Spasm of muscle 728.85 Active 39785761 Problem Regular astigmatism, bilateral H52.223 Active 08134409 Problem Type 2 diabetes mellitus with hyperglycemia E11.65 Active 144326179008281 Problem Age-related nuclear cataract, bilateral H25.13 Active 762269873 Problem Wedge compression fracture of unspecified lumbar vertebra, subsequent encounter for fracture with nonunion S32.000K Active 625559882 Problem Chronic pain syndrome G89.4 Active 423611002 Problem Lipoma of other skin and subcutaneous tissue 214.1 Active 918679753 Problem Allergic rhinitis, cause unspecified 477.9 Active 92172253 Problem Pain in soft tissues of limb 729.5 Active 93610483 Problem 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 191804498 Problem Pain in right knee M25.561 Active 724120313138559 Problem Essential hypertension, benign 401.1 Active 8930336 Problem Chronic kidney disease, stage 1 N18.1 Active 906319281 Problem 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 Problem Localized superficial swelling, mass, or lump 782.2 Active 790035882 Problem Pain in joint, shoulder region 719.41 Active 807949275 Problem Other acute pain 338.19 Active 329657415 Problem Essential (primary) hypertension I10 Active 68264778 Problem Pain in right wrist M25.531 Active 62279799 Problem 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
--- OUTSIDE RECORDS SUMMARY | 2017-03-12 00:05 | XMS REPORT ---
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 Phone Roslyn Jones CP Unavailable Allergies No Known Allergies Problems Problem Type Condition ICD-9 Code Onset Dates Condition Status Problem Unspecified pre-operative examination V72.84 Active Problem Sprain and strain of other specified sites of knee and leg 844.8 Active Problem Chronic pancreatitis 577.1 Active Problem Encounter for removal of sutures V58.32 Active Problem Malignant neoplasm of prostate 185 Active Problem Acute sinusitis, unspecified 461.9 Active Problem Giant cell arteritis 446.5 Active Problem Headache 784.0 Active Problem Localized osteoarthrosis not specified whether primary or secondary, lower leg 715.36 Active Problem Acute frontal sinusitis 461.1 Active Problem Obesity, unspecified 278.00 Active Problem Acute maxillary sinusitis 461.0 Active Problem 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 Active Problem Degeneration of lumbar or lumbosacral intervertebral disc 722.52 Active Problem Hypertrophy (benign) of prostate without urinary obstruction and other lower urinary tract symptoms [LUTS] 600.00 Oct 13, 2010 Active Problem Essential hypertension, benign 401.1 Active Problem Nonspecific abnormal electrocardiogram (ECG) (EKG) 794.31 Active Medications No Known Medications Vital Signs Date/Time: March 15, 2013 Height 70 inches Blood Pressure Diastolic 93 mm Hg Blood Pressure Systolic 136 mm Hg Temperature 97.9 F Cardiac Monitoring Heart Rate 80 Beats per Minute Results No Known Results Summary Purpose [employer] Submission
--- OUTSIDE RECORDS SUMMARY | 2017-03-12 00:05 | XMS REPORT ---
Author Author [facility], [facility] - Organization Unknown Address Unknown Phone Unavailable Allergies, Adverse Reactions, Alerts * naproxen causes Adverse Reaction. * Reglan causes Adverse Reaction. * Compazine causes JITTERY. * Inapsine causes JITTERY. * No Latex Allergy. * No IV Contrast Allergy. Problems * Colonoscopy* Status:Active. Procedures No Procedures Documented. Medication Medication reconciliation has not been performed. Results LAB--BEDSIDE TESTING from 04/04/2013 3:06 AMAnion Gap NPT 15 (3-20 ) BUN Venous NPT 12 mg/dl (4-20 mg/dl) Calcium Ionized Venous 1.26 mmol/L (1.19-1.41 mmol/L) Venous CL NPT 104 mEq/L (99-109 mEq/L) Creatinine Venous NPT 0.9 mg/dL (0.7-1.2 mg/dL) Glucose Venous 121 mg/dL H (70-100 mg/dL) HCT Venous NPT 36.0 % L (42.0-52.0 %) HGB Venous NPT 12.2 g/dL L (14.0-18.0 g/dL) Potassium Venous 3.0 mEq/L L (3.6-5.1 mEq/L) Sodium Venous 141 mEq/L (136-144 mEq/L) Total CO2 Venous 22 mEq/L L (25-29 mEq/L)
--- OUTSIDE RECORDS SUMMARY | 2017-03-12 00:05 | XMS REPORT ---
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
[2017-03-12] MEDS ORDERED: DENO120V (00:21)
--- OUTSIDE RECORDS SUMMARY | 2017-03-12 00:23 | XMS REPORT | Continuity of Care Document ---
Author Author [facility] Organization 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 If you do not see the information that you expected, contact Release of Information in the Health Information Management department at [phone] for further assistance in locating additional records.[facility] Active Allergies and Adverse Reactions Allergen Noted [...] by mouth 30 Tab 0 06/05/20 Active mg PO Tab daily. 11 gabapentin [...]
--- OUTSIDE RECORDS SUMMARY | 2017-03-12 00:23 | XMS REPORT ---
Author Author [facility], [facility] - Organization Unknown Address Unknown Phone Unavailable [...]
--- OUTSIDE RECORDS SUMMARY | 2017-03-12 00:27 | XMS REPORT ---
Author Author [facility], [facility] - Organization Unknown Address Unknown Phone Unavailable [...]
--- OUTSIDE RECORDS SUMMARY | 2017-03-12 00:30 | XMS REPORT | Continuity of Care Document ---
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 [facility] 04/15/2013 Yes No Allergy Information Drug Allergy N/A N/A 05/14/2013 Yes ANAPSINE ANAPSINE Drug Allergy Unknown [facility] 06/20/2013 Yes metoclopramide NKMA N/A Adverse Reaction 02/13/2014 Yes nabumetone NKMA N/A JITTERY 02/13/2014 Yes naproxen NKMA N/A Adverse Reaction 02/13/2014 Yes metoclopramide NKMA N/A Adverse Reaction 02/13/2014 Yes nabumetone NKMA N/A JITTERY 02/13/2014 Yes naproxen NKMA N/A Adverse Reaction 02/13/2014 Yes Compazine NKMA N/A N/A 11/29/2014 Yes Inapsine NKMA N/A N/A 11/29/2014 Yes Reglan NKMA N/A N/A 11/29/2014 Yes Flexeril NKMA N/A N/A 01/05/2015 Yes Flexeril NKMA N/A N/A 01/05/2015 Yes Compazine NKMA Mild N/A 08/21/2015 Yes Inapsine NKMA Mild N/A 08/21/2015 Yes Reglan NKMA Mild N/A 08/21/2015 Yes Compazine NKMA N/A N/A 08/21/2015 Yes Compazine NKMA Mild N/A 08/21/2015 Yes Inapsine NKMA N/A N/A 08/21/2015 Yes Inapsine NKMA Mild N/A 08/21/2015 Yes Reglan NKMA N/A N/A 08/21/2015 Yes Reglan NKMA Mild N/A 08/21/2015 Yes Demerol HCl NKMA N/A nausea 05/10/2016 Yes Compazine Spansule NKMA N/A N/A 07/01/2016 Yes antihistamines NKMA Severe [id number] 08/11/2016 Yes Compazine Spansule NKMA Severe [id number] 08/11/2016 Yes droperidol droperidol Drug Allergy Severe UNKNOWN 08/11/2016 Yes metoclopramide HCl metoclopramide HCl Drug Allergy Moderate JITTERY 08/11/2016 Yes prochlorperazine edisylate prochlorperazine edisylate Drug Allergy Moderate JITTERY Yes prochlorperazine maleate prochlorperazine maleate Drug Allergy Moderate JITTERY Yes naproxen naproxen Drug Allergy Unknown X 08/11/2016 Yes antihistamines NKMA Severe [id number] 08/11/2016 Yes Compazine Spansule NKMA Severe [id number] 08/11/2016 Yes Flexeril NKMA Severe [id number] 08/11/2016 Yes morphine NKMA Severe shakes 08/11/2016 Medications Medication Packaging Start Date Stop Date Route Dosage Sig amLODIPine(Norvasc) 05/16/2014 10/24/2014 Oral Oral, Daily HYDROmorphone(HYDROmorphone) 1 mL 05/16/2014 05/16/2014 IntraMuscular 1 mg 1 mg, IntraMuscular, Once calcium carbonate-magnesium chloride(calcium-magnesium 119 mg-71.5 mg oral delayed release tablet) tabs 05/16/2014 Oral tabs, Oral, Daily leuprolide(Lupron Depot-Ped 11.25 mg/3 months intramuscular kit) IntraMuscular IntraMuscular, q3mo captopril-hydrochlorothiazide(captopril- hydrochlorothiazide 25 mg-15 mg oral tablet) tabs 05/16/2014 Oral tabs, Oral, Daily HYDROmorphone(HYDROmorphone) 1 mL 05/16/2014 05/16/2014 IntraMuscular 1 mg 1 mg, IntraMuscular, Once oxyCODONE-acetaminophen(Percocet 10/325 oral tablet) 2 tabs 05/16/2014 10/08/2014 Oral 2 tabs, Oral, q6hr, 12 tabs, PRN: as needed for pain HYDROmorphone(Dilaudid) 1 mL 08/24/2014 08/24/2014 IntraMuscular 2 mg 2 mg, IntraMuscular, Once amLODIPine(Norvasc) 09/06/2014 Oral Oral, Daily furosemide(Lasix) 09/06/2014 Daily ondansetron(Zofran) 1 tabs 09/06/2014 09/06/2014 Oral 4 mg 4 mg, Oral, Once, PRN: Nausea or Vomiting HYDROmorphone(Dilaudid) 1 mL 09/06/2014 09/06/2014 IntraMuscular 2 mg 2 mg, IntraMuscular, Once oxyCODONE-acetaminophen(Percocet 10/325 oral tablet) 2 tabs 09/06/2014 09/09/2014 Oral 2 tabs, Oral, q6hr, 24 tabs, PRN: as needed for pain zoledronic acid(Zometa) 10/08/2014 IV mg mg, IV potassium chloride(potassium chloride 20 mEq oral tablet, extended release) tabs 10/24/2014 Oral mEq tabs, Oral, BID HYDROcodone(HYDROcodone) 10/24/2014 11/28/2014 Oral Oral, q12hr HYDROcodone-acetaminophen([place] 5 mg-325 mg oral tablet) 1 tabs 10/25/2014 11/01/2014 Oral 1 tabs, Oral, q4hr, 42 tabs, PRN: as needed for pain oxyCODONE-acetaminophen(Percocet 5/325 oral tablet) 1 tabs 10/26/2014 11/01/2014 Oral 1 tabs, Oral, q4hr, 30 tabs, PRN: as needed for pain HYDROmorphone(Dilaudid) 1 mL 10/27/2014 10/27/2014 IntraMuscular 1 mg 1 mg, IntraMuscular, Once oxyCODONE-acetaminophen(Percocet 7.5/325 oral tablet) 1 tabs 10/27/2014 10/28/2014 Oral 1 tabs, Oral, q6hr, 8 tabs, PRN: as needed for pain oxyCODONE-acetaminophen(oxyCODONE-acetaminophen 5 mg-325 mg oral tablet) 1 tabs 11/28/2014 12/16/2015 Oral 1 tabs, Oral, q4hr, 20 tabs, PRN: as needed for pain bicalutamide(Casodex) 11/29/2014 Oral mg mg, Oral, q24hr potassium bitartrate(potassium bitartrate) 11/29/2014 furosemide(Lasix) 11/29/2014 Daily calcium carbonate(calcium carbonate) 11/29/2014 zoledronic acid(Zometa) 11/29/2014 IV mg mg, IV leuprolide(Lupron Depot 30 mg/4 months intramuscular injection, extended release) 11/29/2014 IntraMuscular IntraMuscular HYDROcodone-acetaminophen([place] 10 mg-325 mg oral tablet) tabs 11/29/2014 Oral tabs, Oral, q6hr HYDROmorphone(Dilaudid) 1 mL 11/29/2014 11/29/2014 IntraMuscular 1 mg 1 mg, IntraMuscular, Once cyclobenzaprine(cyclobenzaprine 10 mg oral tablet) 1 tabs 11/29/2014 12/02/2014 Oral 10 mg 1 tabs, Oral, TID, 9 tabs, PRN: as needed for spasm HYDROmorphone(Dilaudid) 1 mL 01/29/2015 02/01/2015 IntraMuscular 2 mg 2 mg, IntraMuscular, Once HYDROmorphone(Dilaudid) 1 mL 12/17/2015 12/17/2015 IntraMuscular 2 mg 2 mg=1 mL, IntraMuscular, Once oxyCODONE-acetaminophen(oxyCODONE-acetaminophen 10 mg-325 mg oral tablet) 1 tabs 12/23/2015 08/19/2016 Oral 1 tabs, Oral, q6hr, PRN: Pain Moderate (4-6), 10 tabs, 0 Refill(s) HYDROmorphone(Dilaudid) 1 mL 12/23/2015 12/23/2015 IntraMuscular 2 mg 2 mg=1 mL, IntraMuscular, Once promethazine(Phenergan) 2 mL 12/23/2015 12/23/2015 IntraMuscular 50 mg 50 mg=2 mL, IntraMuscular, Once, PRN: Nausea or Vomiting HYDROmorphone(Dilaudid) 1 mL 01/04/2016 01/04/2016 IntraMuscular 1 mg 1 mg=1 mL, IntraMuscular, Once HYDROmorphone(Dilaudid) 1 mL 01/09/2016 01/09/2016 IntraMuscular 1 mg 1 mg=1 mL, IntraMuscular, Once ondansetron(Zofran) 2 mL 05/10/2016 05/10/2016 IV Push 4 mg 4 mg= 2 mL, IV Push, Once HYDROmorphone(Dilaudid) 1 mL 05/10/2016 05/10/2016 IV Push 1 mg 1 mg=1 mL, IV Push, Once potassium chloride(potassium chloride 20 mEq/15 mL oral liquid) 30 mL 201505/10/2016 Oral 40 mEq 40 mEq=30 mL, Oral, Once HYDROmorphone(Dilaudid) 1 mL 05/10/2016 05/10/2016 IV Push 1 mg 1 mg=1 mL, IV Push, Once diphenhydrAMINE(Benadryl) 0.5 mL 05/10/2016 05/10/2016 IV Push 25 mg 25 mg=0.5 mL, IV Push, Once carisoprodol(Soma 250 mg oral tablet) 1 tabs 05/10/2016 Oral 250 mg 250 mg=1 tabs, Oral, BID, PRN: Spasm, 5 tabs, 0 Refill(s) ketorolac(Toradol) 1 mL 05/10/2016 05/10/2016 IV Push 30 mg 30 mg =1 mL, IV Push, Once metFORMIN(metFORMIN) 07/01/2016 Oral 500 mg 500 mg, Oral, TID , 0 Refill(s) ketorolac(Toradol) 2 mL 08/11/2016 08/11/2016 IntraMuscular 60 mg 60 mg=2 mL, IntraMuscular, Once HYDROmorphone(HYDROmorphone) 1 mL 08/11/2016 08/11/2016 IntraMuscular 1 mg 1 mg=1 mL, IntraMuscular, Once ondansetron(Zofran) 2 mL 08/17/2016 08/17/2016 IV Push 4 mg 4 mg= 2 mL, IV Push, Once HYDROmorphone(HYDROmorphone) 1 mL 08/17/2016 08/17/2016 IV Push 1 mg 1 mg=1 mL, IV Push, Once docusate(Colace) 1 caps 08/17/2016 08/19/2016 Oral 100 mg 100 mg=1 caps, Oral, BID ondansetron(Zofran) 1 tabs 08/17/2016 08/19/2016 Oral 4 mg 4 mg=1 tabs, Oral, q6hr, PRN: Nausea glucagon(glucagon) 1 mL 08/17/2016 08/19/2016 IntraMuscular 1 mg 1 mg=1 mL, IntraMuscular, As Indicated, PRN: Hypoglycemia/Low Blood Sugar Al hydroxide/Mg hydroxide/simethicone(Maalox Advanced Maximum Strength oral suspension) 30 mL 08/17/2016 08/19/2016 Oral 30 mL, Oral, q6hr, PRN: GERD/Heartburn calcium carbonate(Tums) 1 tabs 08/17/2016 08/19/2016 Oral 500 mg 500 mg=1 tabs, Oral, q4hr, PRN: GERD/Heartburn senna(Senokot) 1 tabs 08/17/2016 08/19/2016 Oral 8.6 mg 8.6 mg=1 tabs, Oral, Daily, PRN: Constipation Dextrose 50% in Water(Dextrose 50% in Water Injection) 25 mL 08/17/2016 08/19/2016 IV Push 12.5 g 12.5 g=25 mL, IV Push, q15min, PRN: Hypoglycemia/Low Blood Sugar Dextrose 10% in Water(Dextrose 10% in Water 250 mL) 250 mL 08/17/2016 08/19/2016 IV 50 mL/hr, IV acetaminophen(acetaminophen) 2 tabs 08/17/2016 08/19/2016 Oral 650 mg 650 mg=2 tabs, Oral, q4hr, PRN: Other (See Comment) docusate-senna(Senokot S 50 mg-8.6 mg oral tablet) 1 tabs 08/17/2016 08/19/2016 Oral 1 tabs, Oral, Daily, PRN: Constipation HYDROmorphone(Dilaudid) 0.5 mL 08/17/2016 08/17/2016 IV Push 0.5 mg 0.5 mg=0.5 mL, IV Push, q4hr, PRN: Pain lidocaine topical(Lidoderm 5% topical film) 1 patches 08/17/2016 08/19/2016 TransDermal 1 patches, TransDermal, Daily promethazine(promethazine 12.5 mg oral tablet) 1 tabs 08/17/2016 03/01/2017 Oral 12.5 mg 12.5 mg=1 tabs, Oral, q6hr, PRN: as needed for nausea/ vomiting, 0 Refill(s) hydrochlorothiazide(hydrochlorothiazide 50 mg oral tablet) 0.5 tabs 08/17/2016 08/19/2016 Oral 25 mg 25 mg=0.5 tabs, Oral, Daily, 0 Refill(s) HYDROmorphone(HYDROmorphone FUSE CUP EXPANDER 30 mg) 30 mL 08/17/20162015 IV 30 mg FUSE CUP EXPANDER, IV, Stop: 10/16/16 10:28:00 [employer] amLODIPine(Norvasc) 1 tabs 08/17/2016 08/19/2016 Oral 10 mg 10 mg= 1 tabs, Oral, Daily cloNIDine(cloNIDine) 1 tabs 08/17/2016 08/19/2016 Oral 0.1 mg 0.1 mg=1 tabs, Oral, Daily furosemide(Lasix) 08/17/2016 08/17/2016 Oral 40 mg 40 mg, Oral , BID hydrochlorothiazide(hydrochlorothiazide) 1 tabs 08/17/2016 Oral 25 mg 25 mg=1 tabs, Oral, Daily lisinopril(lisinopril) 2 tabs 08/17/2016 08/17/2016 Oral 40 mg 40 mg=2 tabs, Oral, Daily insulin detemir(insulin detemir) 0.2 mL 08/17/2016 08/19/2016 SubCutaneous 20 units 20 units=0.2 mL, SubCutaneous, Bedtime (once a day) bicalutamide(Casodex) 1 tabs 08/17/2016 08/19/2016 Oral 50 mg 50 mg=1 tabs, Oral, Daily enoxaparin(Lovenox) 0.4 mL 08/17/2016 08/19/2016 SubCutaneous 40 mg 40 mg=0.4 mL, SubCutaneous, Daily HYDROmorphone(HYDROmorphone FUSE CUP EXPANDER 30 mg) 30 mL 08/17/20162015 IV 30 mg FUSE CUP EXPANDER, IV, Stop: 10/16/16 17:29:00 [employer] oxyCODONE-acetaminophen(Percocet 10/325 oral tablet) 1 tabs 08/18/2016 08/19/2016 Oral 1 tabs, Oral, q4hr, PRN: Pain Moderate (4-6) HYDROmorphone(Dilaudid) 0.5 mL 08/18/2016 08/19/2016 IV Push 0.5 mg 0.5 mg=0.5 mL, IV Push, q4hr, PRN: Pain Severe (7-10) furosemide(Lasix) 1 tabs 08/18/2016 08/19/2016 Oral 40 mg 40 mg= 1 tabs, Oral, BID lisinopril(lisinopril) 2 tabs 08/19/2016 08/19/2016 Oral 40 mg 40 mg=2 tabs, Oral, Daily metFORMIN(metFORMIN) 1 tabs 08/19/2016 08/19/2016 Oral 500 mg 500 mg=1 tabs, Oral, BID oxyCODONE-acetaminophen(oxyCODONE-acetaminophen 10 mg-325 mg oral tablet) 1 tabs 08/19/2016 08/26/2016 Oral 1 tabs, Oral, q6hr, for 7 days, PRN: Pain Moderate (4-6), 21 tabs, 0 Refill(s) docusate(Colace 100 mg oral capsule) 1 caps 08/19/2016 Oral 100 mg 100 mg=1 caps, Oral, BID, 0 Refill(s) acyclovir-hydrocortisone topical(acyclovir-hydrocortisone 5 %-1% topical cream) 1 mukesh 08/23/2016 08/30/2016 Topical 1 mukesh, Topical, 5x/Day, for 7 days, dony recio md, 5 g, 0 Refill(s) metoclopramide(metoclopramide) 2 mL 10/11/2016 10/14/2016 IV Push 10 mg 10 mg=2 mL, IV Push, Once diphenhydrAMINE(Benadryl) 0.5 mL 10/11/2016 10/14/2016 IV Push 25 mg 25 mg=0.5 mL, IV Push, Once acetaminophen(acetaminophen) 2 tabs 10/11/2016 10/14/2016 Oral 1,000 mg 1,000 mg=2 tabs, Oral, Once Sodium Chloride 0.9%(Sodium Chloride 0.9% Bolus) 500 mL 10/11/2016 10/14/2016 Bolus IV 500 mL, Bolus IV, Once HYDROmorphone(Dilaudid) 1 mL 12/16/2016 12/16/2016 IntraMuscular 1 mg 1 mg=1 mL, IntraMuscular, Once promethazine(Phenergan) 1 mL 12/16/2016 IntraMuscular 25 mg 25 mg=1 mL, IntraMuscular, q6hr, PRN: Nausea or Vomiting penicillin V potassium(penicillin V potassium 500 mg oral tablet) 1 tabs 201612/26/2016 Oral 500 mg 500 mg=1 tabs, Oral, QID, for 10 days, 40 tabs, 0 Refill(s) fluticasone nasal(Flonase 50 mcg/inh nasal spray) 2 sprays 12/16/2016 Nasal 2 sprays, Nasal, BID, 16 g, 0 Refill(s) predniSONE(predniSONE 20 mg oral tablet) 2 tabs 12/21/201608/2017 Oral 40 mg 40 mg=2 tabs, Oral, Daily, for 5 days, 10 tabs, 0 Refill(s) cetirizine(ZyrTEC 10 mg oral tablet) 1 tabs 12/21/20162016 Oral 10 mg 10 mg=1 tabs, Oral, Daily, for 10 days, 10 tabs, 0 Refill(s) azithromycin(Zithromax Z-Constantin 250 mg oral tablet) 1 packets 12/21/2016 01/18/2017 Oral 1 packets, Oral, Once, as directed on package labeling, 6 tabs, 0 Refill(s) ondansetron(Zofran) 2 mL 12/21/2016 12/21/2016 IV Push 4 mg 4 mg= 2 mL, IV Push, Once HYDROmorphone(Dilaudid) 0.5 mL 12/21/2016 12/21/2016 IV Push 0.5 mg 0.5 mg=0.5 mL, IV Push, Once polyethylene glycol electrolyte solution(NuLYTELY with Flavor Packs oral powder for reconstitution) 240 mL 12/23/2016 12/25/2016 Oral 240 mL, Oral, q15min, take as directed for colonoscopy prep, 4,000 mL, 0 Refill(s) famotidine(famotidine 20 mg oral tablet) 1 tabs 12/23/2016 Oral 20 mg 20 mg=1 tabs, Oral, Daily, 30 tabs, 3 Refill(s) polyethylene glycol electrolyte solution(NuLYTELY with Flavor Packs oral powder for reconstitution) 240 mL 12/25/2016 02/12/2017 Oral 240 mL, Oral, q15min, take as directed for colonoscopy prep, 4,000 mL, 0 Refill(s) morphine(morphine) 4 mL 01/24/2017 01/24/2017 IntraMuscular 8 mg 8 mg=4 mL, IntraMuscular, Once ketorolac(Toradol) 2 mL 01/24/2017 01/24/2017 IntraMuscular 60 mg 60 mg=2 mL, IntraMuscular, Once naproxen(naproxen 250 mg oral tablet) 1 tabs 01/24/20172016 Oral 250 mg 250 mg=1 tabs, Oral, q8hr, PRN: as needed for pain, 20 tabs, 0 Refill(s) HYDROmorphone(Dilaudid) 1 mL 02/08/2017 02/08/2017 IntraMuscular 1 mg 1 mg=1 mL, IntraMuscular, Once Lactated Ringers Injection(Lactated Ringers Injection 1, 000 mL) 1,000 mL 201602/12/2017 IV 10 mL/hr, IV ondansetron(Zofran) 2 mL 02/12/2017 02/12/2017 IV Push 4 mg 4 mg= 2 mL, IV Push, Once HYDROmorphone(Dilaudid) 1 mL 02/12/2017 02/12/2017 IV Push 2 mg 2 mg=1 mL, IV Push, Once, PRN: Pain Severe (7-10) HYDROcodone(HYDROcodone 10 mg oral capsule, extended release) 1 caps 2016 Oral 10 mg 10 mg=1 caps, Oral, 5x/Day, 0 Refill(s) ondansetron(Zofran) 2 mL 02/21/2017 02/21/2017 IV Push 4 mg 4 mg= 2 mL, IV Push, Once HYDROmorphone(Dilaudid) 1 mL 02/21/2017 02/21/2017 IV Push 1 mg 1 mg=1 mL, IV Push, q15min, PRN: Pain HYDROmorphone(Dilaudid) 1 mL 02/21/2017 02/21/2017 IV Push 1 mg 1 mg=1 mL, IV Push, Once, PRN: Pain hyoscyamine(Levsin SL 0.125 mg sublingual tablet) 2 tabs 02/21/2017 02/26/2017 SubLingual 0.25 mg 0.25 mg=2 tabs, SubLingual, q6hr, 20 tabs, 0 Refill(s) gabapentin(gabapentin) 2 caps 03/01/2017 03/01/2017 Oral 600 mg 600 mg=2 caps, Oral, Once acetaminophen(acetaminophen) 3 tabs 03/01/2017 03/01/2017 Oral 975 mg 975 mg=3 tabs, Oral, Once Lactated Ringers Injection(Lactated Ringers Injection 1, 000 mL) 1,000 mL 201603/01/2017 IV 10 mL/hr, IV midazolam(Versed) 2 mL 03/01/2017 03/01/2017 IV Push 2 mg 2 mg= 2 mL, IV Push, Once fentaNYL(Sublimaze) 0.5 mL 03/01/2017 03/01/2017 IV Push 25 mcg 25 mcg=0.5 mL, IV Push, Once dexamethasone(dexamethasone) 2 mL 03/01/2017 03/01/2017 IV Push 8 mg 8 mg=2 mL, IV Push, Once HYDROmorphone(Dilaudid) 0.5 mL 03/01/2017 03/01/2017 IV Push 0.5 mg 0.5 mg=0.5 mL, IV Push, q10min, PRN: Pain ondansetron(Zofran) 2 mL 03/01/2017 03/06/2017 IV Push 4 mg 4 mg= 2 mL, IV Push, q6hr, PRN: Nausea alvimopan(Entereg) 1 caps 03/01/2017 03/06/2017 Oral 12 mg 12 mg= 1 caps, Oral, q12hr ketorolac(Toradol) 1 mL 03/01/2017 03/06/2017 IV Push 15 mg 15 mg =1 mL, IV Push, q6hr HYDROmorphone(HYDROmorphone) 0.5 mL 03/01/2017 03/02/2017 IV Push 0.5 mg 0.5 mg=0.5 mL, IV Push, q1hr, PRN: Pain Severe (7-10) gabapentin(gabapentin) 1 caps 03/01/2017 03/06/2017 Oral 300 mg 300 mg=1 caps, Oral, TID calcium carbonate(Tums) 1 tabs 03/01/2017 03/06/2017 Oral 500 mg 500 mg=1 tabs, Oral, q4hr, PRN: GERD/Heartburn oxyCODONE(Roxicodone) 03/01/2017 03/02/2017 Oral 15-20 mg, Oral, q4hr, PRN: Pain Severe (7-10) diphenhydrAMINE(Benadryl) 1 tabs 03/01/2017 03/04/2017 Oral 25 mg 25 mg=1 tabs, Oral, q6hr, PRN: Pruritus/Itching Sodium Chloride 0.9%(Sodium Chloride 0.9% 1,000 mL) 1,000 mL 03/01/2017 03/03/2017 IV 80 mL/hr, IV acetaminophen(acetaminophen) 2 tabs 03/01/2017 03/02/2017 Oral 650 mg 650 mg=2 tabs, Oral, q4hr HYDROmorphone(HYDROmorphone FUSE CUP EXPANDER 30 mg) 30 mL 03/01/20172016 IV 30 mg FUSE CUP EXPANDER, IV, Stop: 04/30/17 18:39:00 CDT HYDROmorphone(Dilaudid) 0.5 mL 03/01/2017 03/01/2017 IV Push 0.5 mg 0.5 mg=0.5 mL, IV Push, q10min, PRN: Pain promethazine(Phenergan) 0.5 mL 03/01/2017 03/02/2017 IntraMuscular 12.5 mg 12.5 mg=0.5 mL, IntraMuscular, Once, PRN: Nausea or Vomiting HYDROmorphone(Dilaudid) 0.5 mL 03/01/2017 03/01/2017 IV Push 0.5 mg 0.5 mg=0.5 mL, IV Push, Once, PRN: Pain HYDROmorphone(HYDROmorphone FUSE CUP EXPANDER 30 mg) 30 mL 03/01/20172016 IV 30 mg FUSE CUP EXPANDER, IV, Stop: 04/30/17 22:25:00 CDT enoxaparin(Lovenox) 0.4 mL 03/02/2017 03/06/2017 SubCutaneous 40 mg 40 mg=0.4 mL, SubCutaneous, Daily HYDROmorphone(HYDROmorphone FUSE CUP EXPANDER 30 mg) 30 mL 03/02/20172016 IV 30 mg FUSE CUP EXPANDER, IV, Stop: 05/01/17 7:58:00 CDT HYDROmorphone(HYDROmorphone) 03/02/2017 03/06/2017 IV Push 0.5 mg-1mg, IV Push, q2hr, PRN: Pain - Breakthrough oxycodone-acetaminophen(Percocet 10/325 oral tablet) 03/02/2017 03/06/2017 Oral 1-2 tabs, Oral, q4hr, PRN: Pain Moderate (4-6) promethazine(Phenergan) 1 mL 03/03/2017 03/03/2017 IV Push 25 mg 25 mg=1 mL, IV Push, Once, PRN: Nausea or Vomiting promethazine(Phenergan) 1 mL 03/03/2017 03/06/2017 IntraMuscular 25 mg 25 mg=1 mL, IntraMuscular, q6hr, PRN: Nausea or Vomiting potassium phosphate(potassium phosphate) 10 mL 03/03/201703/03 IV Piggyback 30 mmol 30 mmol=10 mL, 65 mL/hr, IV Piggyback, Once fluticasone nasal(Flonase) 2 sprays 03/03/2017 03/06/2017 Nasal 100 mcg 100 mcg=2 sprays, Nasal, BID amLODIPine(Norvasc) 1 tabs 03/03/2017 03/06/2017 Oral 10 mg 10 mg= 1 tabs, Oral, Daily famotidine(famotidine) 1 tabs 03/03/2017 03/06/2017 Oral 20 mg 20 mg=1 tabs, Oral, Daily cloNIDine(cloNIDine) 1 tabs 03/03/2017 03/06/2017 Oral 0.1 mg 0.1 mg=1 tabs, Oral, Daily bicalutamide(Casodex) 1 tabs 03/03/2017 03/06/2017 Oral 50 mg 50 mg=1 tabs, Oral, Daily metFORMIN(metFORMIN) 1 tabs 03/03/2017 03/06/2017 Oral 500 mg 500 mg=1 tabs, Oral, TID lisinopril(lisinopril) 2 tabs 03/03/2017 03/06/2017 Oral 40 mg 40 mg=2 tabs, Oral, Daily furosemide(Lasix) 1 tabs 03/04/2017 03/06/2017 Oral 40 mg 40 mg= 1 tabs, Oral, BID diphenhydrAMINE(Benadryl range dose) 1 mL 03/04/20172016 IV Push 50 mg 50 mg=1 mL, IV Push, q6hr, PRN: Pruritus/Itching diphenhydrAMINE(Benadryl range dose) 2 tabs 03/04/20172016 Oral 50 mg 50 mg=2 tabs, Oral, q6hr, PRN: Pruritus/Itching oxycodone-acetaminophen(Percocet 10/325 oral tablet) 03/06/2017 Oral 1-2 tabs, Oral, q4hr, PRN: Pain Moderate (4-6), 0 Refill(s) Problems Date Dx Coded Attending Type Code Diagnosis Diagnosed By 10/06/2012 [place] HAN, Chuckie Whelan 784.0 HEADACHE 12/22/2012 [place] HAN, Zaki Whelan 185 MALIGN NEOPL PROSTATE 03/11/2013 Alessandro Hansen MD Final 191.9 BRAIN CA NOS 03/11/2013 Alessandro Hansen MD Final 401.9 HYPERTENSION NOS 03/11/2013 Alessandro Hansen MD Final 429.9 HEART DISEASE NOS 03/11/2013 Alessandro Hansen MD Final 496 CHRONIC AIRWAY OBSTR NEC 03/11/2013 Alessandro Hansen MD Final 784.0 HEADACHE 04/02/2013 Harrison Dodd MD Final 185 PROSTATE CA 04/02/2013 Harrison Dodd MD 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 04/02/2013 Harrison Dodd MD 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 04/02/2013 Harrison Dodd MD Final 784.0 HEADACHE 04/03/2013 Bonilla Paris MD Final 171.2 UP LIMB SOFT TISSUE CA 04/03/2013 Bonilla Paris MD Final 185 PROSTATE CA 04/03/2013 Bonilla Paris MD 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 04/03/2013 Bonilla Paris MD Final 278.00 OBESITY NOS 04/03/2013 Bonilla Paris MD Final 401.9 HYPERTENSION NOS 04/03/2013 Bonilla Paris MD Final V76.51 COLON CA SCREENING 04/03/2013 Bonilla Paris MD Final V85.35 BMI 35.0-35.9 ADULT 04/04/2013 Evgeny Cobb MD Final 185 PROSTATE CA 04/04/2013 [place] MD, Evgeny S 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 04/04/2013 Jordyn HAN, Evgeny Payne Final 276.8 HYPOPOTASSEMIA 04/04/2013 Jordyn HAN, Evgeny S Final 338.3 NEOPLASM RELATED PAIN 04/04/2013 Jordyn HAN, Evgeny Payne Final 719.41 JOINT PAIN-SHOULDER 05/06/2013 Prakash Tolbert MD Final 185 PROSTATE CA 05/06/2013 Prakash Tolbert MD 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 05/06/2013 Prakash Tolbert MD Final 401.9 HYPERTENSION NOS 05/06/2013 Prakash Tolbert MD Final 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 05/06/2013 Tomasz HAN, Prakash Final 496 CHRONIC AIRWAY OBSTR NEC 05/06/2013 Prakash Tolbert MD Final 719.41 JOINT PAIN-SHOULDER 05/06/2013 Prakash Tolbert MD Admitting 998.89 OTH SPEC POSTOP COMP NEC 05/06/2013 Prakash Tolbert MD Final V45.89 POSTSURGICAL STATES NEC 05/14/2013 Harrison Dodd MD Final 338.18 ACUTE POSTOP PAIN NEC 05/14/2013 Harrison Dodd MD Final 719.41 JOINT PAIN-SHOULDER 06/01/2013 Nancy HAN, Aj Joshua Final 171.9 SOFT TISSUE CA NOS 06/01/2013 Nancy HAN, Aj Joshua Final 285.9 ANEMIA NOS 06/01/2013 Nancy HAN, Aj Joshua Final 719.46 JOINT PAIN-LOWER LEG 06/01/2013 Nancy HAN, Aj Joshua Final 729.81 LIMB SWELLING 06/01/2013 Nancy HAN, Aj Joshua Final 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 06/17/2013 Harrison Dodd MD Final 185 PROSTATE CA 06/17/2013 Harrison Dodd MD Final 199.1 MALIGNANT NEOPLASM NEC 06/17/2013 Harrison Dodd MD Final 401.9 HYPERTENSION NOS 06/17/2013 Harrison Dodd MD Final 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 06/17/2013 Harrison Dodd MD Final 429.9 HEART DISEASE NOS 06/17/2013 Harrison Dodd MD Admitting 719.46 JOINT PAIN-LOWER LEG 06/17/2013 Harrison Dodd MD Final 780.96 GENERALIZED PAIN 06/17/2013 Harrison Dodd MD Final 959.7 LOWER LEG INJURY NEC 06/17/2013 Harrison Dodd MD External E029.9 ACTIVITY NEC 06/17/2013 Harrison Dodd MD External E879.2 ABN RXN-RADIOTHERAPY 06/17/2013 Harrison Dodd MD External E927.8 OVEREXERT/REPET ACC NEC 07/14/2013 Harrison Dodd MD Final 185 PROSTATE CA 07/14/2013 Harrison Dodd MD Final 401.9 HYPERTENSION NOS 07/14/2013 Harrison Dodd MD Final 429.9 HEART DISEASE NOS 07/14/2013 Harrison Dodd MD Final 719.41 JOINT PAIN-SHOULDER 07/14/2013 Harrison Dodd MD Final 729.5 PAIN IN LIMB 07/14/2013 Harrison Dodd MD Final 784.0 HEADACHE 07/24/2013 Zaki Bojorquez MD 171.9 MAL AUTUMN SOFT TISSUE NOS 07/24/2013 Zaki Bojorquez MD 185 MALIGN NEOPL PROSTATE 07/24/2013 Zaki Bojorquez MD 171.9 MAL AUTUMN SOFT TISSUE NOS 07/24/2013 Zaki Bojorquez MD 185 MALIGN NEOPL PROSTATE 07/24/2013 Zaki Bojorquez MD 171.9 MAL AUTUMN SOFT TISSUE NOS 07/24/2013 Zaki Bojorquez MD 185 MALIGN NEOPL PROSTATE 07/24/2013 Zaki Bojorquez MD 171.9 MAL AUTUMN SOFT TISSUE NOS 07/24/2013 Zaki Bojorquez MD 185 MALIGN NEOPL PROSTATE 07/24/2013 Zaki Bojorquez MD 171.9 MAL AUTUMN SOFT TISSUE NOS 07/24/2013 Zaki Bojorquez MD 185 MALIGN NEOPL PROSTATE 07/24/2013 Zaki Bojorquez MD 171.9 MAL AUTUMN SOFT TISSUE NOS 07/24/2013 Zaki Bojorquez MD 185 MALIGN NEOPL PROSTATE 07/24/2013 Zaki Bojorquez MD 171.9 MAL AUTUMN SOFT TISSUE NOS 07/24/2013 Zaki Bojorquez MD 185 MALIGN NEOPL PROSTATE 07/24/2013 Zaki Bojorquez MD 171.9 MAL AUTUMN SOFT TISSUE NOS 07/24/2013 Zaki Bojorquez MD 185 MALIGN NEOPL PROSTATE 10/23/2013 Shamar Riddle Jr, MD Final 338.29 CHRONIC PAIN NEC 10/23/2013 Shamar Riddle Jr, MD Admitting 719.46 JOINT PAIN-LOWER LEG 01/04/2014 Zaki Bojorquez MD 171.9 MAL AUTUMN SOFT TISSUE NOS 01/04/2014 Zaki Bojorquez MD 185 MALIGN NEOPL PROSTATE 10/29/2014 Petey Vasquez MD Final 719.41 PAIN IN JOINT INVOLVING SHOULDER REGION 10/29/2014 Petey Vasquez MD Reason 959.2 OTHER AND UNSPECIFIED INJURY TO SHOULDER AND UPPER ARM 11/05/2014 Zaki Bojorquez MD 171.9 MAL AUTUMN SOFT TISSUE NOS 11/05/2014 Zaki Bojorquez MD 185 MALIGN NEOPL PROSTATE 11/05/2014 aZki Bojorquez MD 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 11/05/2014 Zaki Bojorquez MD 171.9 MAL AUTUMN SOFT TISSUE NOS 11/05/2014 Zaki Bojorquez MD 185 MALIGN NEOPL PROSTATE 11/05/2014 Zaki Bojorquez MD 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 11/30/2014 Scarlet Sanchez MD Final 338.29 Other chronic pain 11/30/2014 Scarlet Sanchez MD Reason 719.41 PAIN IN JOINT INVOLVING SHOULDER REGION 11/30/2014 Scarlet Sanchez MD Final 724.2 LUMBAGO 01/07/2015 Petey Vasquez MD Reason 729.82 CRAMP OF LIMB 01/08/2015 Reason 379.92 SWELLING OR MASS OF EYE 01/30/2015 Final 461.9 ACUTE SINUSITIS, UNSPECIFIED 01/30/2015 Reason 525.9 UNSPECIFIED DISORDER OF THE TEETH AND SUPPORTING STRUCTURES 01/30/2015 Final 873.63 Tooth (broken) (fractured) (due to trauma), uncomplicated 05/24/2015 Zaki Bojorquez MD 185 12/24/2015 Alejandro Pena MD Final G89.29 Other chronic pain 12/24/2015 Alejandro Pena MD Reason M25.512 Pain in left shoulder 12/30/2015 Yusuf Smallter A Reason M25.512 Pain in left shoulder 12/30/2015 Jamila Smallvester A Final Z98.89 Other specified postprocedural states 01/09/2016 Alejandro Pena MD Reason R99 Ill-defined and unknown cause of mortality 01/09/2016 Alejandro Pena MD Final G89.18 Other acute postprocedural pain 01/09/2016 Alejandro Pena MD Reason M25.512 Pain in left shoulder 01/15/2016 Alejandro Pena MD Final C61 Malignant neoplasm of prostate 01/15/2016 Alejandro Pena MD Final G89.18 Other acute postprocedural pain 01/15/2016 Alejandro Pena MD Reason R07.89 Other chest pain 05/17/2016 Reason M54.2 Cervicalgia 05/17/2016 Final R22.1 Localized swelling, mass and lump, neck 05/17/2016 Final R51 Headache 05/19/2016 Elamin,, Elshami Reason C49.9 Malignant neoplasm of connective and soft tissue, unspecified 05/19/2016 Elamin,, Elshami Final C61 Malignant neoplasm of prostate 05/19/2016 Elamin,, Elshami Final C79.51 Secondary malignant neoplasm of bone 05/19/2016 Elamin,, Elshami Final R51 Headache 06/12/2016 Reason R51 Headache 07/03/2016 Final M25.512 Pain in left shoulder 07/03/2016 Reason R51 Headache 07/31/2016 Winsome Wynn Edmundo Final E11.65 Type 2 diabetes mellitus with hyperglycemia 07/31/2016 Winsome Wynn Edmundo Final E87.6 Hypokalemia 07/31/2016 Winsome Wynn Reason I10 Essential (primary) hypertension 07/31/2016 Winsome Wynn Edmundo Final R51 Headache 07/31/2016 Winsome Wynn Final Z79.4 meterman (current) use of insulin 08/13/2016 Pena Howard Final I10 Essential (primary) hypertension 08/13/2016 Pena Howard Reason M54.9 Dorsalgia, unspecified 08/13/2016 Pena Howard Final S32.020A Wedge compression fracture of second lumbar vertebra, initial encounter for 08/13/2016 Pena Howard Final W17.89XA Other fall from one level to another, initial encounter 08/13/2016 Pena Howard Final Y92.[address] in unspecified non- institutional (private) residence as the [facility] 08/13/2016 Pena Howard Final Z85.46 Personal history of malignant neoplasm of prostate 08/17/2016 Ashley Moran Admitting T14.8 08/21/2016 Ashley Moran Final C61 Malignant neoplasm of prostate 08/21/2016 Ashley Moran Final C79.51 Secondary malignant neoplasm of bone 08/21/2016 Ashley Moran Final E11.9 Type 2 diabetes mellitus without complications 08/21/2016 Ashley Moran Final E87.6 Hypokalemia 08/21/2016 Ashley Moran Final I10 Essential (primary) hypertension 08/21/2016 Ashley Moran Final R26.81 Unsteadiness on feet 08/21/2016 Ashley Moran Admitting S32.029A Unspecified fracture of second lumbar vertebra, initial encounter for close 08/21/2016 Ashley Moran Final Z19.1 Hormone sensitive malignancy status 08/21/2016 Ashley Moran Final Z79.84 meterman (current) use of oral hypoglycemic drugs 08/21/2016 Ashley Moran Final Z91.81 History of falling 08/21/2016 Ashley Moran Final M54.5 Low back pain 08/25/2016 Harpal Villasenor A Reason K13.79 Other lesions of oral mucosa 10/13/2016 Winsome Wynn Reason R51 Headache 10/13/2016 Winsome Wynn Final Z85.841 Personal history of malignant neoplasm of brain 12/17/2016 Pena Howard Final I10 Essential (primary) hypertension 12/17/2016 Pena Howard Final J01.10 Acute frontal sinusitis, unspecified 12/17/2016 Pena Howard Final K04.7 Periapical abscess without sinus 12/17/2016 Pena Howard Reason R51 Headache 12/23/2016 Crawford Mark Final I10 Essential (primary) hypertension 12/23/2016 Crawford Mark Final J32.9 Chronic sinusitis, unspecified 12/23/2016 Crawford Mark Reason R51 Headache 01/20/2017 Pena Howard Reason M79.602 Pain in left arm 01/21/2017 Pena Howard Reason R51 Headache 01/26/2017 Winsome Wynn Reason M25.512 Pain in left shoulder 01/26/2017 Winsome Wynn Final S49.92XA Unspecified injury of left shoulder and upper arm, initial encounter 01/26/2017 Winsome Wynn Final W20.8XXA Other cause of strike by thrown, projected or falling object, initial encou 01/26/2017 Winsome Wynn Final Y92.[address] in unspecified non- institutional (private[facility] 02/10/2017 Bone Jacob Reason M25.512 Pain in left shoulder 02/10/2017 Bone Jacob Final W01.10XA Fall on same level from slipping, tripping and stumbling with subsequent st 02/10/2017 Bone Jacob Final Y92.002 Bathroom of unspecified non-institutional ( private) residence single-family 02/12/2017 Pena Howard Reason M25.512 Pain in left shoulder 02/16/2017 Unity, W Austin Final C18.2 Malignant neoplasm of ascending colon 02/16/2017 Agnes, W Austin Final D12.5 Benign neoplasm of sigmoid colon 02/16/2017 Unity, W Austin Final E66.9 Obesity, unspecified 02/16/2017 Unity, W Austin Final I10 Essential (primary) hypertension 02/16/2017 Agnes, W Austin Final K21.9 Gastro-esophageal reflux disease without esophagitis 02/16/2017 Agnes, W Austin Final K29.30 Chronic superficial gastritis without bleeding 02/16/2017 Unity, W Austin Reason Z12.11 Encounter for screening for malignant neoplasm of colon 02/16/2017 Unity, W Austin Final Z68.41 Body mass index (BMI) 40.0-44.9, adult 02/16/2017 Agnes, W Austin Final Z79.84 meterman (current) use of oral hypoglycemic drugs 02/16/2017 Kerrie Alarcon Final Z79.899 Other salvage determiner (current) drug therapy 02/16/2017 Kerrie Alarcon Final Z85.46 Personal history of malignant neoplasm of prostate 02/25/2017 Dodd James Reason R10.30 Lower abdominal pain, unspecified 03/03/2017 Reason R99 Ill-defined and unknown cause of mortality 03/03/2017 Queen Michael Final I10 Essential (primary) hypertension 03/03/2017 Queen Michael Reason R10.84 Generalized abdominal pain 03/03/2017 Queen Michael Final Z53.21 Procedure and treatment not carried out due to patient leaving prior to jessica 03/03/2017 Queen Michael Final Z79.4 long-term (current) use of insulin 03/03/2017 Queen Michael Final Z79.84 meterman (current) use of oral hypoglycemic drugs 03/03/2017 Queen Michael Final Z85.038 Personal history of other malignant neoplasm of large intestine 03/03/2017 Queen Michael Final Z85.46 Personal history of malignant neoplasm of prostate 03/09/2017 Lopez Noel Admitting C18.2 Malignant neoplasm of ascending colon 03/09/2017 Lopez Noel Final C61 Malignant neoplasm of prostate 03/09/2017 Lopez Noel Final C79.31 Secondary malignant neoplasm of brain 03/09/2017 Lopez Noel Final D12.5 Benign neoplasm of sigmoid colon 03/09/2017 Lopez Noel Final E11.9 Type 2 diabetes mellitus without complications 03/09/2017 Lopez Noel Final E66.9 Obesity, unspecified 03/09/2017 Lopez Noel Final G89.18 Other acute postprocedural pain 03/09/2017 Lopez Noel Final K21.9 Gastro-esophageal reflux disease without esophagitis 03/09/2017 Lopez Noel Final K29.50 Unspecified chronic gastritis without bleeding 03/09/2017 Lopez Noel Final 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 03/09/2017 Lopez Noel Final Z53.31 Laparoscopic surgical procedure converted to open procedure 03/09/2017 Lopez Noel Final Z68.41 Body mass index (BMI) 40.0-44.9, adult 03/09/2017 JohnPopeye Final C18.2 Malignant neoplasm of ascending colon Procedures Code Description [place] [id number] Bonilla Paris MD 04/03/2013 [id number] DIAGNOSTIC COLONOSCOPY Bonilla Paris MD 04/03/2013 [id number] Colonoscopy, flexible; with removal of tumor(s), polyp(s), or other lesion ( 02/12/2017 [id number] Resection of Large Intestine, Open Approach 03/01/2017 Results Test Result Range CHEM/HEM PROFILE-BEDSIDE - 10/18/12 23:15 POTASSIUM 3.0 mmol/L 3.5-5.3 METHOD Bedside ANION GAP 12 mmol/L 10-20 METHOD Bedside GLUCOSE 136 mg/dL 70-99 BLOOD UREA NITROGEN 11 mg/dL 7-20 CREATININE 0.9 mg/dL 0.8-1.3 HEMOGLOBIN 12.2 gm/dL 14.0-18.0 HEMATOCRIT 36.0 % 40.0-54.0 SODIUM 142 mmol/L 135-148 CHLORIDE 103 mmol/L 98-110 CARBON DIOXIDE 30 mmol/L 21-32 CALCIUM IONIZED 5.0 mg/dL 4.5-5.3 CBC W/DIFF - 10/18/12 23:16 EOSINOPHIL # 0.2 k/cumm 0.1-0.5 EOSINOPHIL % 2 % 2-4 GRANULOCYTE # 3.0 k/cumm 2.0-9.0 GRANULOCYTE % 39 % 50-75 LYMPHOCYTE # 3.7 k/cumm 1.0-4.0 LYMPHOCYTE % 49 % 20-30 MEAN CELL HGB 31.0 pg 27.0-33.0 MEAN CELL HGB CONCENTRATION 35.3 g/dL 32.0-37.0 MEAN CELL VOLUME 81.3 fl 80.0-100.0 MONOCYTE # 0.7 k/cumm 0.1-1.0 MONOCYTE % 9 % 4-6 RED BLOOD CELL 4.39 m/cumm 4.00-6.00 RED CELL DISTRIBUTION WIDTH 12.2 % 11.0- 15.6 WHITE BLOOD CELL 7.6 k/cumm 5.0-10.0 HEMOGLOBIN 12.6 gm/dL 14.0-18.0 HEMATOCRIT 35.7 % 40.0-54.0 PLATELET COUNT 178 k/cumm 150-400 CHEM/HEM PROFILE-BEDSIDE - 01/23/13 17:22 POTASSIUM 3.6 mmol/L 3.5-5.3 METHOD Bedside ANION GAP 16 mmol/L 10-20 METHOD Bedside GLUCOSE 109 mg/dL 70-99 BLOOD UREA NITROGEN 8 mg/dL 7-20 CREATININE 0.9 mg/dL 0.8-1.3 HEMOGLOBIN 13.3 gm/dL 14.0-18.0 HEMATOCRIT 39.0 % 40.0-54.0 SODIUM 139 mmol/L 135-148 CHLORIDE 103 mmol/L 98-110 CARBON DIOXIDE 24 mmol/L 21-32 CALCIUM IONIZED 4.7 mg/dL 4.5-5.3 CBC W/DIFF - 01/23/13 17:25 EOSINOPHIL # 0.2 k/cumm 0.1-0.5 EOSINOPHIL % 3 % 2-4 GRANULOCYTE # 3.7 k/cumm 2.0-9.0 GRANULOCYTE % 46 % 50-75 LYMPHOCYTE # 3.2 k/cumm 1.0-4.0 LYMPHOCYTE % 40 % 20-30 MEAN CELL HGB 30.0 pg 27.0-33.0 MEAN CELL HGB CONCENTRATION 35.2 g/dL 32.0-37.0 MEAN CELL VOLUME 85.4 fl 80.0-100.0 MONOCYTE # 0.8 k/cumm 0.1-1.0 MONOCYTE % 10 % 4-6 RED BLOOD CELL 4.66 m/cumm 4.00-6.00 RED CELL DISTRIBUTION WIDTH 12.6 % 11.0- 15.6 WHITE BLOOD CELL 8.0 k/cumm 5.0-10.0 HEMOGLOBIN 14.0 gm/dL 14.0-18.0 HEMATOCRIT 39.8 % 40.0-54.0 PLATELET COUNT 135 k/cumm 150-400 CBC W/DIFF - 03/09/13 18:35 EOSINOPHIL # 0.1 k/cumm 0.1-0.5 EOSINOPHIL % 1 % 2-4 GRANULOCYTE # 8.0 k/cumm 2.0-9.0 GRANULOCYTE % 78 % 50-75 LYMPHOCYTE # 1.3 k/cumm 1.0-4.0 LYMPHOCYTE % 13 % 20-30 MEAN CELL HGB 30.0 pg 27.0-33.0 MEAN CELL HGB CONCENTRATION 35.7 g/dL 32.0-37.0 MEAN CELL VOLUME 84.0 fl 80.0-100.0 MONOCYTE # 0.8 k/cumm 0.1-1.0 MONOCYTE % 8 % 4-6 RED BLOOD CELL 4.44 m/cumm 4.00-6.00 RED CELL DISTRIBUTION WIDTH 12.9 % 11.0- 15.6 WHITE BLOOD CELL 10.2 k/cumm 5.0-10.0 HEMOGLOBIN 13.3 gm/dL 14.0-18.0 HEMATOCRIT 37.3 % 40.0-54.0 PLATELET COUNT 180 k/cumm 150-400 HEPATIC FUNCTION PANEL - 03/09/13 18:35 BILI UNCONJUGATED 0.8 mg/dL 0.0-0.7 AST/SGOT 50 Units/L 10-37 ALT/SGPT 42 Units/L < 66 TOTAL PROTEIN 7.8 gm/dL 6.4-8.2 ALBUMIN 4.4 gm/dL 3.4-5.0 BILI TOTAL 0.9 mg/dL 0.0-1.0 ALKALINE PHOSPHATASE TOTAL 147 Units/L 50 -136 BILI CONJUGATED 0.2 mg/dL 0.0-0.3 LIPASE - 03/09/13 18:35 LIPASE 83 Units/L 73-393 CHEM/HEM PROFILE-BEDSIDE - 03/09/13 18:51 POTASSIUM 3.2 mmol/L 3.5-5.3 METHOD Bedside ANION GAP 16 mmol/L 10-20 METHOD Bedside GLUCOSE 161 mg/dL 70-99 BLOOD UREA NITROGEN 15 mg/dL 7-20 CREATININE 1.2 mg/dL 0.8-1.3 HEMOGLOBIN 12.9 gm/dL 14.0-18.0 HEMATOCRIT 38.0 % 40.0-54.0 SODIUM 139 mmol/L 135-148 CHLORIDE 99 mmol/L 98-110 CARBON DIOXIDE 28 mmol/L 21-32 CALCIUM IONIZED 4.8 mg/dL 4.5-5.3 CBC W/DIFF - 03/10/13 16:00 EOSINOPHIL # 0.1 k/cumm 0.1-0.5 EOSINOPHIL % 1 % 2-4 GRANULOCYTE # 3.4 k/cumm 2.0-9.0 GRANULOCYTE % 55 % 50-75 LYMPHOCYTE # 2.1 k/cumm 1.0-4.0 LYMPHOCYTE % 34 % 20-30 MEAN CELL HGB 29.7 pg 27.0-33.0 MEAN CELL HGB CONCENTRATION 35.0 g/dL 32.0-37.0 MEAN CELL VOLUME 84.8 fl 80.0-100.0 MONOCYTE # 0.5 k/cumm 0.1-1.0 MONOCYTE % 9 % 4-6 RED BLOOD CELL 4.28 m/cumm 4.00-6.00 RED CELL DISTRIBUTION WIDTH 12.9 % 11.0- 15.6 WHITE BLOOD CELL 6.2 k/cumm 5.0-10.0 HEMOGLOBIN 12.7 gm/dL 14.0-18.0 HEMATOCRIT 36.3 % 40.0-54.0 PLATELET COUNT 160 k/cumm 150-400 CHEM/HEM PROFILE-BEDSIDE - 03/10/13 16:58 POTASSIUM 3.3 mmol/L 3.5-5.3 METHOD Bedside ANION GAP 18 mmol/L 10-20 METHOD Bedside GLUCOSE 97 mg/dL 70-99 BLOOD UREA NITROGEN 9 mg/dL 7-20 CREATININE 0.8 mg/dL 0.8-1.3 HEMOGLOBIN 11.6 gm/dL 14.0-18.0 HEMATOCRIT 34.0 % 40.0-54.0 SODIUM 142 mmol/L 135-148 CHLORIDE 101 mmol/L 98-110 CARBON DIOXIDE 26 mmol/L 21-32 CALCIUM IONIZED 4.5 mg/dL 4.5-5.3 URINALYSIS, ROUTINE - 03/10/13 17:00 UA LEUKOCYTE ESTERASE DIPSTICK NEGATIVE NEGATIVE UA NITRITE DIPSTICK NEGATIVE NEGATIVE UA PROTEIN DIPSTICK NEGATIVE NEGATIVE UA GLUCOSE DIPSTICK NEGATIVE NEGATIVE UA KETONE DIPSTICK NEGATIVE NEGATIVE UA UROBILINOGEN DIPSTICK NORMAL NORMAL UA BILIRUBIN DIPSTICK NEGATIVE NEGATIVE UA BLOOD DIPSTICK NEGATIVE NEGATIVE UA SPECIFIC GRAVITY 1.015 1.015-1.025 UR PH 8.0 5.0-7.0 UA MICROSCOPIC - 03/10/13 17:00 UA EPITHELIAL CELLS 1+ epi/hpf 0 - 1+ UA RBC 0-3 rbc/hpf 0 - 3 UA VOLUME FOR EXAM 12.0 mL (12mL STD) UA WBC 0-1 wbc/hpf 0 - 5 CBC W/DIFF - 05/22/13 01:00 EOSINOPHIL # 0.1 k/cumm 0.1-0.5 EOSINOPHIL % 1 % 2-4 GRANULOCYTE # 3.6 k/cumm 2.0-9.0 GRANULOCYTE % 46 % 50-75 LYMPHOCYTE # 3.5 k/cumm 1.0-4.0 LYMPHOCYTE % 46 % 20-30 MEAN CELL HGB 30.6 pg 27.0-33.0 MEAN CELL HGB CONCENTRATION 35.3 g/dL 32.0-37.0 MEAN CELL VOLUME 86.7 fl 80.0-100.0 MONOCYTE # 0.5 k/cumm 0.1-1.0 MONOCYTE % 7 % 4-6 RED BLOOD CELL 4.21 m/cumm 4.00-6.00 RED CELL DISTRIBUTION WIDTH 13.1 % 11.0- 15.6 WHITE BLOOD CELL 7.7 k/cumm 5.0-10.0 HEMOGLOBIN 12.9 gm/dL 14.0-18.0 HEMATOCRIT 36.5 % 40.0-54.0 PLATELET COUNT 176 k/cumm 150-400 METABOLIC PANEL, BASIC - 05/22/13 01:00 POTASSIUM 3.1 mmol/L 3.5-5.3 EST GFR (MDRD) > 60 mL/min > 59 ANION GAP 11 mmol/L 5-15 EST CrCl (CG) > 60 mL/min > 59 GLUCOSE 117 mg/dL 70-99 CALCIUM 9.0 mg/dL 8.5-10.1 BLOOD UREA NITROGEN 9 mg/dL 7-20 CREATININE 1.0 mg/dL 0.8-1.3 SODIUM 140 mmol/L 135-148 CHLORIDE 103 mmol/L 98-110 CARBON DIOXIDE 26 mmol/L 21-32 CBC W/DIFF - 10/06/14 20:19 EOSINOPHIL # 0.1 k/cumm 0.1-0.5 EOSINOPHIL % 1 % 2-4 GRANULOCYTE # 7.5 k/cumm 2.0-9.0 GRANULOCYTE % 71 % 50-75 LYMPHOCYTE # 2.4 k/cumm 1.0-4.0 LYMPHOCYTE % 22 % 20-30 MEAN CELL HGB 31.2 pg 27.0-33.0 MEAN CELL HGB CONCENTRATION 36.1 g/dL 32.0-37.0 MEAN CELL VOLUME 86.5 fl 80.0-100.0 MONOCYTE # 0.6 k/cumm 0.1-1.0 MONOCYTE % 5 % 4-6 RED BLOOD CELL 4.29 m/cumm 4.00-6.00 RED CELL DISTRIBUTION WIDTH 12.3 % 11.0- 15.6 WHITE BLOOD CELL 10.6 k/cumm 5.0-10.0 HEMOGLOBIN 13.4 gm/dL 14.0-18.0 HEMATOCRIT 37.1 % 40.0-54.0 PLATELET COUNT 209 k/cumm 150-400 HEPATIC FUNCTION PANEL - 10/06/14 20:19 BILI UNCONJUGATED 0.5 mg/dL 0.0-0.7 AST/SGOT 24 Units/L 10-37 ALT/SGPT 34 Units/L < 66 TOTAL PROTEIN 7.4 gm/dL 6.4-8.2 ALBUMIN 4.3 gm/dL 3.4-5.0 BILI TOTAL 0.6 mg/dL 0.0-1.0 ALKALINE PHOSPHATASE TOTAL 209 IU/L 45- 117 BILI CONJUGATED 0.1 mg/dL 0.0-0.3 LIPASE - 10/06/14 20:19 LIPASE 112 Units/L 73-393 CHEM/HEM PROFILE-BEDSIDE - 10/06/14 20:24 POTASSIUM 4.2 mmol/L 3.5-5.3 METHOD Bedside ANION GAP 21 mmol/L 10-20 METHOD Bedside GLUCOSE 146 mg/dL 70-99 BLOOD UREA NITROGEN 19 mg/dL 7-20 CREATININE 1.2 mg/dL 0.8-1.3 HEMOGLOBIN 12.2 gm/dL 14.0-18.0 HEMATOCRIT 36.0 % 40.0-54.0 SODIUM 140 mmol/L 135-148 CHLORIDE 102 mmol/L 98-110 CARBON DIOXIDE 22 mmol/L 21-32 CALCIUM IONIZED 5.0 mg/dL 4.5-5.3 URINALYSIS, ROUTINE - 10/06/14 20:30 UA LEUKOCYTE ESTERASE DIPSTICK NEGATIVE NEGATIVE UA NITRITE DIPSTICK NEGATIVE NEGATIVE UA PROTEIN DIPSTICK 1+ NEGATIVE UA GLUCOSE DIPSTICK NEGATIVE NEGATIVE UA KETONE DIPSTICK TRACE NEGATIVE UA UROBILINOGEN DIPSTICK NORMAL NORMAL UA BILIRUBIN DIPSTICK NEGATIVE NEGATIVE UA BLOOD DIPSTICK NEGATIVE NEGATIVE UA SPECIFIC GRAVITY 1.027 1.015-1.025 UR PH 5.0 5.0-7.0 URINE CULTURE - 10/06/14 20:30 Microbiology BC REFLEX LACTIC ACID - 10/06/14 21:15 LACTIC ACID 2.0 mmol/L 0.5-2.2 BLOOD CULTURE - 10/06/14 21:15 Microbiology BLOOD CULTURE - 10/06/14 21:15 Microbiology UA MICROSCOPIC - 10/06/14 21:45 UA EPITHELIAL CELLS 2+ epi/hpf 0 - 1+ UA HYALINE CAST 0-1 cast/lpf 0 - 1 UA MUCUS 3+ NEG TO 1+ UA RBC 0-3 rbc/hpf 0 - 3 UA VOLUME FOR EXAM 12.0 mL (12mL STD) UA WBC 0-1 wbc/hpf 0 - 5 POTASSIUM - 12/19/15 07:28 POTASSIUM 3.1 mmol/L 3.5-5.3 GLUCOSE (POC) - 12/19/15 07:33 GLUCOSE (POC) 122 mg/dL - GLUCOSE (POC) - 12/19/15 11:57 GLUCOSE (POC) 139 mg/dL -99 GLUCOSE (POC) - 12/19/15 14:10 GLUCOSE (POC) 142 mg/dL 70- BLOOD CULTURE - 12/29/15 19:00 Microbiology CBC W/DIFF - 12/29/15 19:21 EOSINOPHIL # 0.1 k/cumm 0.1-0.5 EOSINOPHIL % 1 % 2-4 GRANULOCYTE # 6.8 k/cumm 2.0-9.0 GRANULOCYTE % 57 % 50-75 LYMPHOCYTE # 4.0 k/cumm 1.0-4.0 LYMPHOCYTE % 33 % 20-30 MEAN CELL HGB 29.3 pg 27.0-33.0 MEAN CELL HGB CONCENTRATION 35.5 g/dL 32.0-37.0 MEAN CELL VOLUME 82.6 fl 80.0-100.0 MONOCYTE # 1.0 k/cumm 0.1-1.0 MONOCYTE % 8 % 4-6 RED BLOOD CELL 4.60 m/cumm 4.00-6.00 RED CELL DISTRIBUTION WIDTH 12.9 % 11.0- 15.6 WHITE BLOOD CELL 12.0 k/cumm 5.0-10.0 HEMOGLOBIN 13.5 gm/dL 14.0-18.0 HEMATOCRIT 38.0 % 40.0-54.0 PLATELET COUNT 225 k/cumm 150-400 BC REFLEX LACTIC ACID - 12/29/15 19:23 LACTIC ACID 1.5 mmol/L 0.5-2.0 BLOOD CULTURE - 12/29/15 19:23 Microbiology CHEM/HEM PROFILE-BEDSIDE - 12/29/15 19:30 POTASSIUM 2.6 mmol/L 3.5-5.3 METHOD Bedside ANION GAP 23 mmol/L 10-20 METHOD Bedside GLUCOSE 116 mg/dL 70-99 BLOOD UREA NITROGEN 11 mg/dL 7-20 CREATININE 0.8 mg/dL 0.7-1.3 HEMOGLOBIN 12.2 gm/dL 14.0-18.0 HEMATOCRIT 36.0 % 40.0-54.0 SODIUM 142 mmol/L 135-148 CHLORIDE 103 mmol/L 98-110 CARBON DIOXIDE 19 mmol/L 21-32 CALCIUM IONIZED 4.5 mg/dL 4.5-5.3 Creatinine - 05/14/16 10:49 Creatinine 0.69 mg/dL 0.64-1.27 eGFR - 05/14/16 10:49 eGFR >60 NA >60 Comprehensive Metabolic Panel (CMP) - 07/28/16 18:19 Albumin 4.1 g/dL 3.5-4.8 Alkaline Phosphatase 94 U/L 26-104 ALT (SGPT) 52 U/L 17-63 Anion Gap 10 NA 3-20 AST (SGOT) 43 U/L 15-41 Bilirubin Total 0.9 mg/dL 0.2-1.2 BUN 9 mg/dL 4-20 Calcium 8.8 mg/dL 8.6-10.0 Chloride 103 mEq/L 99-109 CO2 22 mEq/L 22-32 Creatinine 0.78 mg/dL 0.64-1.27 Globulin 3.0 g/dL 1.9-4.3 Glucose 169 mg/dL 70-100 Potassium 2.6 mEq/L 3.6-5.1 Protein 7.1 g/dL 6.1-7.9 Sodium 135 mEq/L 136-144 eGFR - 07/28/16 18:19 eGFR >60 NA >60 Troponin - 07/28/16 18:19 Troponin <0.05 ng/mL <0.06 CBC With Platelet and Differential - 07/28/16 18:19 Absolute Basophils 0.02 10*3 0.00-0.20 Absolute Eosinophils 0.09 10*3 0.00-0.50 Absolute Lymphocytes 4.53 10*3 0.80-3.30 Absolute Monocytes 1.24 10*3 0.30-1.00 Absolute Neutrophils 7.91 10*3 1.90-7.00 Basophils 0 % 0-2 Eosinophils 1 % 0-4 HCT 40.5 % 42.0-52.0 HGB 15.3 g/dL 14.0-18.0 Immature Granulocytes 0.4 % 0.0-1.0 Lymphocytes 33 % 20-46 MCH 30.6 pg 27.0-32.0 MCHC 37.8 g/dL 32.0-36.0 MCV 81.0 fL 82.0-99.0 Monocytes 9 % 4-11 MPV 11.1 fL 9.4-12.3 Neutrophils 57 % 51-75 Nucleated RBC Automated 0.7 /100 WBC Platelet Count 192 K/uL 150-400 RBC 5.00 10*6/uL 4.60-6.20 RDW 12.4 % 11.5-14.5 WBC 13.8 K/uL 4.8-10.8 CBC W/DIFF - 08/11/16 03:55 EOSINOPHIL # 0.2 k/cumm 0.1-0.5 EOSINOPHIL % 2 % 2-4 GRANULOCYTE # 4.2 k/cumm 2.0-9.0 GRANULOCYTE % 59 % 50-75 LYMPHOCYTE # 2.1 k/cumm 1.0-4.0 LYMPHOCYTE % 30 % 20-30 MEAN CELL HGB 30.2 pg 27.0-33.0 MEAN CELL HGB CONCENTRATION 36.4 g/dL 32.0-37.0 MEAN CELL VOLUME 83.1 fl 80.0-100.0 MONOCYTE # 0.6 k/cumm 0.1-1.0 MONOCYTE % 9 % 4-6 RED BLOOD CELL 4.43 m/cumm 4.00-6.00 RED CELL DISTRIBUTION WIDTH 12.4 % 11.0- 15.6 WHITE BLOOD CELL 7.1 k/cumm 5.0-10.0 HEMOGLOBIN 13.4 gm/dL 14.0-18.0 HEMATOCRIT 36.8 % 40.0-54.0 PLATELET COUNT 161 k/cumm 150-400 Comprehensive Metabolic Panel (CMP) - 08/17/16 02:50 Albumin 3.5 g/dL 3.5-4.8 Alkaline Phosphatase 76 U/L 26-104 ALT (SGPT) 37 U/L 17-63 Anion Gap 6 NA 3-20 AST (SGOT) 35 U/L 15-41 Bilirubin Total 0.7 mg/dL 0.2-1.2 BUN 6 mg/dL 4-20 Calcium 8.6 mg/dL 8.6-10.0 Chloride 105 mEq/L 99-109 CO2 29 mEq/L 22-32 Creatinine 0.79 mg/dL 0.64-1.27 Globulin 2.5 g/dL 1.9-4.3 Glucose 112 mg/dL 70-100 Potassium 3.3 mEq/L 3.6-5.1 Protein 6.0 g/dL 6.1-7.9 Sodium 140 mEq/L 136-144 eGFR - 08/17/16 02:50 eGFR >60 NA >60 Magnesium - 08/17/16 02:50 Magnesium 1.9 mg/dL 1.8-2.5 Glucose NPT - 08/17/16 05:43 Glucose NPT 119 mg/dL 70-100 Glucose NPT - 08/17/16 10:55 Glucose NPT 160 mg/dL 70-100 BLOOD UREA NITROGEN - 09/17/16 09:47 BLOOD UREA NITROGEN 13 mg/dL 7-20 CREATININE - 09/17/16 09:47 EST GFR (MDRD) > 60 mL/min > 59 CREATININE 1.0 mg/dL 0.7-1.3 GLUCOSE (POC) - 09/17/16 09:50 GLUCOSE (POC) 108 mg/dL 70-99 GLUCOSE (POC) - 09/17/16 13:10 GLUCOSE (POC) 137 mg/dL 70-99 CHEM/HEM PROFILE-BEDSIDE - 09/21/16 12:27 POTASSIUM > 9.0 mmol/L 3.5-5.3 METHOD Bedside ANION GAP TEST NOT PERFORMED mmol/L METHOD Bedside GLUCOSE 127 mg/dL 70-99 BLOOD UREA NITROGEN 14 mg/dL 7-20 CREATININE 0.8 mg/dL 0.7-1.3 HEMOGLOBIN 12.2 gm/dL 14.0-18.0 HEMATOCRIT 36.0 % 40.0-54.0 SODIUM 135 mmol/L 135-148 CHLORIDE 99 mmol/L 98-110 CARBON DIOXIDE 27 mmol/L 21-32 CALCIUM IONIZED < 1.0 mg/dL 4.5-5.3 CHEM/HEM PROFILE-BEDSIDE - 09/21/16 12:39 POTASSIUM 2.8 mmol/L 3.5-5.3 METHOD Bedside ANION GAP 17 mmol/L 10-20 METHOD Bedside GLUCOSE 121 mg/dL 70-99 BLOOD UREA NITROGEN 10 mg/dL 7-20 CREATININE 0.9 mg/dL 0.7-1.3 HEMOGLOBIN 11.6 gm/dL 14.0-18.0 HEMATOCRIT 34.0 % 40.0-54.0 SODIUM 140 mmol/L 135-148 CHLORIDE 98 mmol/L 98-110 CARBON DIOXIDE 29 mmol/L 21-32 CALCIUM IONIZED 4.5 mg/dL 4.5-5.3 Cytogenetics - 02/12/17 00:00 Cytogenetics SEE IMAGE Cytogenetics SEE IMAGE NA CBC With Platelet and Differential - 02/21/17 15:27 Absolute Basophils 0.01 10*3/uL 0.00- 0.20 Absolute Eosinophils 0.09 10*3/uL 0.00- 0.50 Absolute Lymphocytes 2.63 10*3/uL 0.80- 3.30 Absolute Monocytes 0.39 10*3/uL 0.30- 1.00 Absolute Neutrophils 4.16 10*3/uL 1.90- 7.00 Basophils 0 % 0-2 Eosinophils 1 % 0-4 HCT 38.8 % 42.0-52.0 HGB 14.0 g/dL 14.0-18.0 Immature Granulocytes 0.4 % 0.0-1.0 Lymphocytes 36 % 20-46 MCH 30.4 pg 27.0-32.0 MCHC 36.1 g/dL 32.0-36.0 MCV 84.2 fL 82.0-99.0 Monocytes 5 % 4-11 MPV 10.8 fL 9.4-12.3 Neutrophils 57 % 51-75 Nucleated RBC Automated 0.0 /100 WBC Platelet Count 163 K/uL 150-400 RBC 4.61 10*6/uL 4.60-6.20 RDW 12.7 % 11.5-14.5 WBC 7.3 K/uL 4.8-10.8 Comprehensive Metabolic Panel (CMP) - 02/21/17 15:27 Albumin 4.0 g/dL 3.5-4.8 Alkaline Phosphatase 89 U/L 26-104 ALT (SGPT) 29 U/L 17-63 Anion Gap 10 mEq/L 3-20 AST (SGOT) 36 U/L 15-41 Bilirubin Total 0.7 mg/dL 0.2-1.2 BUN 14 mg/dL 4-20 Calcium 10.0 mg/dL 8.6-10.0 Chloride 98 mEq/L 99-109 CO2 28 mEq/L 22-32 Creatinine 1.24 mg/dL 0.64-1.27 Globulin 2.9 g/dL 1.9-4.3 Glucose 206 mg/dL 70-100 Potassium 3.2 mEq/L 3.6-5.1 Protein 6.9 g/dL 6.1-7.9 Sodium 136 mEq/L 136-144 eGFR - 02/21/17 15:27 eGFR 60 mL/min >60 Troponin - 02/21/17 15:27 Troponin <0.05 ng/mL <0.06 Glucose NPT - 03/01/17 13:13 Glucose NPT 144 mg/dL 70-100 Glucose NPT - 03/01/17 18:01 Glucose NPT 239 mg/dL 70-100 Glucose NPT - 03/01/17 19:04 Glucose NPT 184 mg/dL 70-100 CBC With Platelet and Differential - 03/02/17 06:32 Absolute Basophils 0.01 10*3/uL 0.00- 0.20 Absolute Eosinophils 0.00 10*3/uL 0.00- 0.50 Absolute Lymphocytes 2.04 10*3/uL 0.80- 3.30 Absolute Monocytes 0.97 10*3/uL 0.30- 1.00 Absolute Neutrophils 5.41 10*3/uL 1.90- 7.00 Basophils 0 % 0-2 Eosinophils 0 % 0-4 HCT 36.5 % 42.0-52.0 HGB 13.1 g/dL 14.0-18.0 Immature Granulocytes 0.4 % 0.0-1.0 Lymphocytes 24 % 20-46 MCH 30.4 pg 27.0-32.0 MCHC 35.9 g/dL 32.0-36.0 MCV 84.7 fL 82.0-99.0 Monocytes 12 % 4-11 MPV 10.9 fL 9.4-12.3 Neutrophils 64 % 51-75 Nucleated RBC Automated 0.0 /100 WBC Platelet Count 190 K/uL 150-400 RBC 4.31 10*6/uL 4.60-6.20 RDW 12.6 % 11.5-14.5 WBC 8.5 K/uL 4.8-10.8 Basic Metabolic Panel (BMP) - 03/02/17 06:32 Anion Gap 13 mEq/L 3-20 BUN 11 mg/dL 4-20 Calcium 7.9 mg/dL 8.6-10.0 Chloride 103 mEq/L 99-109 CO2 23 mEq/L 22-32 Creatinine 0.95 mg/dL 0.64-1.27 Glucose 156 mg/dL 70-100 Potassium 3.6 mEq/L 3.6-5.1 Sodium 139 mEq/L 136-144 Magnesium - 03/02/17 06:32 Magnesium 1.8 mg/dL 1.8-2.5 eGFR - 03/02/17 06:32 eGFR >60 mL/min >60 CBC With Platelet No Differential - 03/03/17 07:49 HCT 33.5 % 42.0-52.0 HGB 12.0 g/dL 14.0-18.0 MCH 30.6 pg 27.0-32.0 MCHC 35.8 g/dL 32.0-36.0 MCV 85.5 fL 82.0-99.0 MPV 10.5 fL 9.4-12.3 Platelet Count 181 K/uL 150-400 RBC 3.92 10*6/uL 4.60-6.20 RDW 13.0 % 11.5-14.5 WBC 8.3 K/uL 4.8-10.8 Renal Function Panel - 03/03/17 07:49 Albumin 3.5 g/dL 3.5-4.8 Anion Gap 7 mEq/L 3-20 BUN 10 mg/dL 4-20 Calcium 7.8 mg/dL 8.6-10.0 Chloride 105 mEq/L 99-109 CO2 27 mEq/L 22-32 Creatinine 0.81 mg/dL 0.64-1.27 Glucose 172 mg/dL 70-100 Phosphorus 1.3 mg/dL 2.4-4.7 Potassium 3.8 mEq/L 3.6-5.1 Sodium 139 mEq/L 136-144 eGFR - 03/03/17 07:49 eGFR >60 mL/min >60 Renal Function Panel - 03/04/17 12:16 Albumin 3.3 g/dL 3.5-4.8 Anion Gap 7 mEq/L 3-20 BUN 7 mg/dL 4-20 Calcium 8.3 mg/dL 8.6-10.0 Chloride 104 mEq/L 99-109 CO2 27 mEq/L 22-32 Creatinine 0.66 mg/dL 0.64-1.27 Glucose 152 mg/dL 70-100 Phosphorus 1.0 mg/dL 2.4-4.7 Potassium 3.9 mEq/L 3.6-5.1 Sodium 138 mEq/L 136-144 eGFR - 03/04/17 12:16 eGFR >60 mL/min >60 CBC With Platelet No Differential - 03/04/17 12:17 HCT 29.6 % 42.0-52.0 HGB 10.5 g/dL 14.0-18.0 MCH 30.3 pg 27.0-32.0 MCHC 35.5 g/dL 32.0-36.0 MCV 85.3 fL 82.0-99.0 MPV 10.6 fL 9.4-12.3 Platelet Count 143 K/uL 150-400 RBC 3.47 10*6/uL 4.60-6.20 RDW 13.0 % 11.5-14.5 WBC 5.7 K/uL 4.8-10.8 Encounters ACCT No. Visit Date/Time Discharge Status Pt. Type Provider Facility Loc./Unit Complaint [id number] 10/23/2013 19:38:00 2013 21:59:00 DIS Emergency Janessa Garcia MD, Shamar Soares [facility] [id number] 07/14/2013 23:32:00 2012 01:18:00 DIS Emergency Harrison Dodd MD [facility] [id number] 06/17/2013 00:46:00 2012 04:17:00 DIS Emergency Harrison Dodd MD [facility] [id number] 06/01/2013 21:44:00 2012 01:23:00 DIS Emergency Aj Cruz MD [facility] [id number] 05/14/2013 04:42:00 2012 06:58:00 DIS Emergency Harrison Dodd MD [facility] [id number] 05/06/2013 15:39:00 2012 17:25:00 DIS Emergency Prakash Tolbert MD [facility] [id number] 04/04/2013 01:14:00 2012 03:25:00 DIS Emergency Jordyn HAN, Evgeny Payne [facility] [id number] 04/03/2013 07:14:00 2012 15:00:00 DIS Outpatient Wellington HAN, Bonilla J [facility] [address] [id number] 04/02/2013 21:38:00 2012 23:14:00 DIS Emergency Yousif HAN, Harrison Lockett [facility] [address] [id number] 03/11/2013 00:31:00 2012 01:28:00 DIS Emergency Tyrone HAN, Alessandro Rubio [facility] on [address]
--- OUTSIDE RECORDS SUMMARY | 2017-03-12 00:32 | XMS REPORT | Continuity of Care Document ---
Author Author [facility] Organization [facility] Address Unknown Phone Unavailable Support Name Relationship Address Phone MARISSA HAIR MD Caregiver [address] [place] [phone] SHAR KENT MD Caregiver [address] [place] [phone] [facility] Next Of Kin [address] [place], [place] [address] Insurance Providers Payer Name Policy Number Subscriber Name Relationship [facility] [employer] [facility] [id number] Weston Puente Jr 17 Self Advance Directives [...] F (96.8 - 99.1) Temperature (Calculated Celsius) [phone] degrees C (36.0 - 37.3) Pulse Rate [...] 01, 2014 11:18am LAB TEST FORM REQUEST [id number] - Lactate Dehydrogenase January 01, 2014 9:30am [...] Has specimen been collected/obtained? Y Urine Specific [place] January 01, 2014 11:30am 1.010 L - [...] Encounters Encounter Location Date/Time Departed Emergency Room [facility] 12/21/14 6:33pm Recent Diagnosis
--- OUTSIDE RECORDS SUMMARY | 2017-03-12 00:32 | XMS REPORT ---
Author Author [facility], [facility] - Organization Unknown Address Unknown Phone Unavailable [...]
--- NOTE | 2017-03-12 00:50 | NUR ---
STATUS LAB IN ROOM TO DRAW BLOOD SAMPLE AT THIS TIME, PT AT FIRST TELLS LAB THEY CAN NOT DRAW UNTIL AFTER HE RECEIVES HIS "PAIN SHOT". DR WOO IN TO TALK WITH PT AND HE AGREES TO LET LAB DRAW BLOOD SAMPLE. MEDICATIONS WILL BE GIVEN FOLLOWING LAB DRAW.
[2017-03-12] MEDS: HYDROMORPHONE 2mg/ml INJECTION IM ONE ×2 (00:58→02:12)
[2017-03-12] MEDS: PROMETHAZINE 50 MG INJECTION IM ONE (00:58)
[2017-03-12 01:15] LABS: ALBUMIN 4.3 G/DL (3.5-5.0); ALBUMIN/GLOBULIN RATIO 1.4 RATIO (1.1-2.2); ALKALINE PHOSPHATASE 95 U/L (38-126); ALT (SGPT) 42 U/L (21-72); ANION GAP 14 MEQ/L (5-15); AST (SGOT) 22 U/L (17-59); BUN/CREATININE RATIO 14 RATIO (6-26); C-REACTIVE PROTEIN 47.8 MG/L (0-9); CALCIUM 9.4 MG/DL (8.4-10.2); CHLORIDE 107 MEQ/L (98-107); CO2 - CARBON DIOXIDE 25 MEQ/L (22-30); CREATININE 0.7 MG/DL (0.8-1.5); GLOMERULAR FILTRATION RATE 116; GLUCOSE 141 MG/DL (75-110); POTASSIUM 3.5 MEQ/L (3.6-5); SODIUM 146 MEQ/L (134-144); TOTAL PROTEIN 7.4 G/DL (6.3-8.2)
[2017-03-12 01:17] LABS: BASOPHILS % (AUTO) 0.2 % (0-2); EOSINOPHILS # (AUTO) 0.1 T/MM3 (0-0.5); EOSINOPHILS % (AUTO) 0.6 % (0-4); HCT - HEMATOCRIT 34.7 % (41-53); HGB - HEMOGLOBIN 12.8 GM/DL (13.5-17.5); IMMATURE GRANULOCYTE # (AUTO) 0.07 T/MM3 (0.00-0.03); IMMATURE GRANULOCYTE % (AUTO) 0.5 % (0.0-0.5); LYMPHOCYTES # (AUTO) 3.1 T/MM3 (1-4.8); LYMPHOCYTES % (AUTO) 23.8 % (23-45); MEAN CORPUSCULAR HGB 30.3 UUG (26-34); MEAN CORPUSCULAR HGB CONC(MCHC 36.9 GM/DL (31-37); MEAN CORPUSCULAR VOLUME 82.2 UM3 (80-100); MEAN PLATELET VOLUME 10.7 UM3 (9.4-12.4); NEUTROPHILS #(AUTO)-ABSOLUTE 8.7 T/MM3 (1.8-7.7); NEUTROPHILS % (AUTO) 66.9 % (33-66); RED BLOOD COUNT 4.22 M/MM3 (4.50-5.90); WBC - WHITE BLOOD COUNT 12.9 T/MM3 (4.5-11.0)
--- NOTE | 2017-03-12 01:38 | NUR ---
STATUS PT REPORTS HIS PAIN REMAINS 10/10 AND HE HAS HAD NO RELIEF.
[2017-03-12] MEDS ORDERED: HYDROMORPHONE 2mg/ml INJECTION IV ONE (02:00)
--- NOTE | 2017-03-12 02:12 | NUR ---
STATUS IMMEDIATELY FOLLOWING DILAUDID ADMINISTRATION, PT LEAVES THE ER AND HIS IS STANDING IS THE HALLWAY. PT REPORTS ON HIS WAY OUT THAT HIS WILL SIGN HIS PAPERS, HE ISN'T GOING TO WAIT ANY LONGER AND HE WILL GET HIS LAB RESULTS LATER. Addendum: 03/12/17 at 0230 by [email or web address] CORRECTED TIME 0215.
--- NOTE | 2017-03-12 02:15 | ERPDOC ---
Departure Disposition Decision Date: March 12, 2017 Disposition Decision Time: 02:21 Disposition: 01 DISCHARGED HOME, SELF-CARE Impression Impression Impression: Primary Impression: Postoperative abdominal pain Severity: Moderate Condition: Improved Seen By: Physician only Referrals: MARISSA HAIR MD (Family) Patient Instructions: Wound Healing and Your Diet (ED) Problems/Meds/Labs Reviewed?: Yes Medications reviewed and manag: Yes Follow up care ordered?: Yes Mental Status: Alert, Oriented HPI - Abdominal Pain General Chief Complaint: Post-Surgical Problem Stated Complaint: ABDOMINAL PAIN Time Seen by Provider: 00:14 HPI - Abdominal Pain Initial Comments 56-year-old male presents with abdominal pain. 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 He has 9 sisters all of whom have: And other cancers. He has had colon cancer, sarcoma and prostate cancer. Also states he had a craniotomy due to a brain cancer. He had his "entire colon" removed 2 weeks ago at via [facility]. He still has jennifer in place and is due to have them removed early next week. He was discharged with Lortab 10, states it has not worked and he needs something more for pain. He drove here from [place] as the weight at [facility] was too long. He's had no fevers or chills, does not feel like there is any increased pressure or changes in his abdomen. He does have pain postop. He's not had constipation, but has been having very loose bowel movements post removal of colon. Patient is passing gas, passing stool, no nausea vomiting. Allergies: Coded Allergies: droperidol (Verified Allergy, Unknown, 03/12/17) metoclopramide (Verified Allergy, Unknown, 03/12/17) prochlorperazine (Verified Allergy, Unknown, 03/12/17) Past History Past Medical History Metabolic: cancer, hypertension Surgical History General: back, gallbladder, other Joint: knee, shoulder Family History Family PMH: FOUND: cancer Vaccines Hx Influenza Vaccination: No Hx Pneumococcal Vaccination: No Social History Sexuality: female partner Record Review Pertinent history updated: Yes Review of Systems ENMT Comments History of craniotomy and post pain. GI Upper Abdomen: see HPI Lower Abdomen: see HPI All other Systems All Other Systems: Reviewed and Negative Physical Exam General General Nourishment: well nourished, adult, obese Distress Description Difficult to tell if patient is in distress or not. He seems a moments to be hurting, and another moment seems distracted. Vitals and Pain First Documented Vital Signs Date Time Temp Pulse Resp B/P Pulse Ox O2 Delivery O2 Flow Rate FiO2 03/11/17 23:55 97.8 92 16 155/96 97 Room Air Weight: Kilograms: 116.100 Height (feet): 5 Height (inches): 9.00 Triage Pain Scale: Normal Exams: Chest/Resp: Clear all pierre, with good airflow, and symmetry bilaterally CV: Regular rate and rhythm, without murmur or gallop, Pulses 2+ all extremities, capillary refill, <2 seconds all ext., no pedal edema noted Neurologic: Patient is alert, and oriented, cranial nerves, motor/sensory/ cerebellar, exams w/o gross deficits, to observation Abdomen (brief) Comments Positive bowel sounds all 4 quadrants, no hyperactive. Tell in place with ventral incision, no cellulitis or drainage noted in the area. No palpable mass. Differential Diagnoses Considering: Other (cellulitis, obstruction, constipation, stop pain) Progress Results/Orders Orders Procedure Category Date Status Time Cbc W/Auto LAB 03/12/17 Complete Diff-Reflex Manual Cmp - Comprehensive LAB 03/12/17 Complete Metabolic C-Reactive Protein - LAB 03/12/17 Complete CRP 00:32 Hydromorphone PHA 03/12/17 Complete (Dilaudid) 00:45 Promethazine PHA 03/12/17 Complete (Phenergan) 00:45 Hydromorphone PHA 03/12/17 Complete (Dilaudid) 02:00 Hydromorphone PHA 03/12/17 In Process (Dilaudid) 02:15 Lab Results Laboratory Tests Test 03/12/17 00:56 White Blood Count 12.9T/MM3 Red Blood Count 4.22M/MM3 Hemoglobin 12.8GM/DL Hematocrit 34.7% Mean Corpuscular Volume 82.2UM3 Mean Corpuscular Hemoglobin 30.3UUG Mean Corpuscular Hemoglobin Concent 36.9GM/DL RDW Standard Deviation 35.8FL Platelet Count 228T/MM3 Mean Platelet Volume 10.7UM3 Immature Granulocyte % (Auto) 0.5% Neutrophils (%) (Auto) 66.9% Lymphocytes (%) (Auto) 23.8% Monocytes (%) (Auto) 8.0% Eosinophils (%) (Auto) 0.6% Basophils (%) (Auto) 0.2% Absolute Immature Granulocyte (auto 0.07T/MM3 Absolute Neutrophils (auto) 8.7T/MM3 Absolute Lymphocytes (auto) 3.1T/MM3 Absolute Monocytes (auto) 1.0T/MM3 Absolute Eosinophils (auto) 0.1T/MM3 Absolute Basophils (auto) 0.0T/MM3 Turbidity < 20 Sodium Level 146MEQ/L Potassium Level 3.5MEQ/L Chloride Level 107MEQ/L Carbon Dioxide Level 25MEQ/L Anion Gap 14MEQ/L Blood Urea Nitrogen 10.0MG/DL Creatinine 0.7MG/DL Glomerular Filtration Rate Calc 116 BUN/Creatinine Ratio 14RATIO Glucose Level 141MG/DL Calculated Osmolality 282MOSM/KG Calcium Level 9.4MG/DL Total Bilirubin 0.80MG/DL Icterus Index < 2 Aspartate Amino Transf (AST/SGOT) 22U/L Alanine Aminotransferase (ALT/SGPT) 42U/L Alkaline Phosphatase 95U/L C-Reactive Protein 47.8MG/L Total Protein 7.4G/DL Albumin 4.3G/DL Globulin 3.1G/DL Albumin/Globulin Ratio 1.4RATIO Chemistry Specimen Hemolysis < 15 Medications Current ED Medications Hydromorphone HCl (Dilaudid) 1 mg O ONCE IM Last administered on 03/12/17 00: 58; Start 03/12/17 at 00:45; Stop 03/12/17 at 00:47; Status DC Promethazine HCl (Phenergan) 50 mg O ONCE IM Last administered on 03/12/17 00 :58; Start 03/12/17 at 00:45; Stop 03/12/17 at 00:47; Status DC Hydromorphone HCl (Dilaudid) 1 mg O ONCE IV ; Start 03/12/17 at 02:00; Stop at 02:01; Status DC Progress Progress Patient has obvious post op jennifer in place. With no acute signs of i infection. A little uncomfortable giving the pain medication as he is not normally a patient here. I did agree to do one time dose in the ER, but not to write any oral pain meds for him as he needs to see a surgeon for follow-up. Especially if his pain is worsening. He had very mildly elevated white count, which he states is always elevated. He had normal exam for postop patient. I would like to have had CT of the abdomen to rule out an abscess, but after pain medication was given, he refused any more workup. He understands the risks of leaving without having the workup finished. Vitals are appropriate, he is not appear acutely ill. However I'm unable to review enough of a workup to be satisfied. Patient understands this. He was given a total of 2 mg Dilaudid IM, 50 mg of Phenergan IM. He is very antsy to leave and pushing to get out the door. I did discuss with him the need to return to emergency department immediately if his abdominal pain is worsening, as he will need more workup. JENNIFER WOO MD March 12, 2017 02:15
[2017-03-12 02:26] VITALS: BP 160/90; PULSE 90; RESP 12; O2SAT 98
--- NOTE | 2017-03-12 02:26 | NUR ---
DEPART PT IS DISCHARGED AT THIS TIME, INSTRUCTIONS ARE REVIEWED WITH PT'S AND UNDERSTANDING IS VOICED. PT IS AWAITING HIS IN THE VEHICLE.
== END 2017-03-12 02:26 | disposition home or self-care (01) ==
LOC: ED 23:52
DX: G89.18 Other acute postprocedural pain (principal); R10.30 Lower abdominal pain, unspecified; R10.10 Upper abdominal pain, unspecified
CPT/HCPCS: 36415; 80053; 85025; 86140; 96372; 99283; J1170; J2550